=== PATIENT | female | born 1930 | race Caucasian/White ===

== ENCOUNTER 2017-06-11 03:52 | Inpatient (IN) | payer OTHER ==
[2017-06-11] MEDS ORDERED: SODIUM CHLORIDE 0.9% 1000 ML INFUS.BAG IV PRN (04:05)
[2017-06-11] MEDS ORDERED: hydrALAZINE HCL 20 MG/ML VIAL IVPUSH ONE (04:08)
[2017-06-11] MEDS ORDERED: MAGNESIUM SULF 50% (8.12 MEQ/2 ML-1 GM VIAL) IVPB ONE (04:11)
[2017-06-11 04:17] LABS: ALLENS TEST POSITIVE; ART PUNCT SITE RIGHT BRACHIAL; ARTERIAL BLOOD GAS BASE EXCESS -1.4 meq/l (-2-2); ARTERIAL BLOOD GAS HCO3 22.7 meq/L (22-26); ARTERIAL BLOOD GAS pH 7.39 (7.35-7.45); LPM/O2% 100; PT. ON O2? YES; VENT RATE 14
[2017-06-11 04:21] LABS: TYPE OF O2 BIPAP
[2017-06-11] MEDS ORDERED: MAGNESIUM SULF 50% (8.12 MEQ/2 ML-1 GM VIAL) ONE (04:22)
[2017-06-11 04:30] LABS: BASOPHIL 0.4 % (0-2.0); EOSINOPHIL 0.4 % (0-4.5); MCH 31.3 pg (25.7-33.7); MCHC 32.8 g/dl (32.0-36.0); MEAN CELL VOLUME 95.6 fl (80-96); MEAN PLT VOLUME 7.2 fl (7.5-11.1); NEUTROPHILS 90.2 % (42.8-82.8); PLATELET COUNT 287 K/MM3 (134-434); RDW 18.1 % (11.6-15.6); WHITE BLOOD COUNT 12.3 K/mm3 (4.0-10.0)
--- NOTE | 2017-06-11 04:39 | PDOC ---
History of Present Illness - General Chief Complaint: Respiratory Distress Stated Complaint: DIFFICULTY BREATHING Time Seen by Provider: 06/11/17 03:54 - History of Present Illness Initial Comments: 06/11/17 04:24 CHIEF COMPLAINT: shortness of breath HISTORY OF PRESENT ILLNESS: 87 yo F with hx of HTN, HLD, COPD, Alzheimer's, hypokalemia, GERD, C. Diff, and depression BIBEMS to ED with shortness of breath. Patient is unable to give a complete history and states "I don't know what happened" but does report being short of breath and denies any pain to chest or elsewhere. Per EMS patient had acute onset shortness of breath and O2 sat was 79% on EMS arrival and increased to 91% on bipap. Per EMS patient's BP was also elevated to 190s/100s on arrival. Patient was given 1 tab SL nitro in the field. PAST MEDICAL HISTORY: as per HPI FAMILY HISTORY: Denies SOCIAL HISTORY: Lives at [facility]. SURGICAL HISTORY: Denies ALLERGIES: No known drug allergies REVIEW OF SYSTEMS General/Constitutional: Denies fever or chills. Denies weakness, weight change. HEENT: Denies change in vision. Denies ear pain or discharge. Denies sore throat. Cardiovascular: Denies chest pain or shortness of breath. Respiratory: Shortness of breath. Gastrointestinal: Denies nausea, vomiting, diarrhea or constipation. Denies rectal bleeding. Genitourinary: Denies dysuria, frequency, or change in urination. Musculoskeletal: Denies joint or muscle swelling or pain. Denies neck or back pain. Skin and breasts: Denies rash or easy bruising. Neurologic: Denies headache, vertigo, loss of consciousness, or loss of sensation. PHYSICAL EXAM General Appearance: Confused, on CPAP for resp distress. HEENT: EOMI, PERRLA, normal ENT inspection, normal voice, TMs normal, pharynx normal. No conjunctival pallor. No photophobia, scleral icterus. Neck: Supple. Trachea midline. No tenderness, rigidity, carotid bruit, stridor , lymphadenopathy, or thyromegaly. Respiratory/Chest: Diffuse rhonchi bilaterally. Lungs CTAB. No shortness of breath, chest tenderness, respiratory distress, accessory muscle use. No crackles, rales, rhonchi, stridor, wheezing, dullness Cardiovascular: RRR. S1, S2. No JVD, murmur, bradycardia, tachycardia. Vascular Pulses: Dorsalis-Pedis (R): 2+, Dorsalis-Pedis (L): 2+ Gastrointestinal/Abdominal: Normal bowel sounds. Abdomen soft, non-distended. No tenderness or rebound tenderness. No organomegaly, pulsatile mass, guarding , hernia, hepatomegaly, splenomegaly. Lymphatic: No adenopathy, tenderness. Musculoskeletal/Extremities: Normal inspection. FROM of all extremities, normal capillary refill. Pelvis Stable. No CVA tenderness. No tenderness to extremities, pedal edema, swelling, erythema or deformity. Integumentary: Appropriate color, dry, warm. 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 Fully oriented, alert. Appropriate mood/affect. Motor strength 5/5. No appreciable EOM palsy, facial droop or sensory deficit. 06/11/17 06:50 Past History - Past Medical History Allergies/Adverse Reactions: Allergies Allergy/AdvReac Type Severity Reaction Status Date / Time No Known Allergies Allergy Verified 06/11/17 03:53 Home Medications: Ambulatory Orders Acetaminophen [Tylenol .Extra-Strength -] 500 mg PO ASDIR 06/11/17 Acetaminophen [Tylenol .Regular Strength -] 325 mg PO Q4H PRN 06/11/17 Atorvastatin Ca [Lipitor] 40 mg PO HS 06/11/17 Cyanocobalamin [Vitamin B12 -] 1,000 mcg PO DAILY 06/11/17 Donepezil HCl [Aricept -] 10 mg PO DAILY 06/11/17 Hydralazine HCl [Apresoline -] 25 mg PO BID 06/11/17 Lisinopril 10 mg PO DAILY 06/11/17 Metoprolol Succinate [Toprol Xl] 50 mg PO DAILY 06/11/17 [place]-3S/Dha/Epa/Fish Oil [[place]-3 Fish Oil 1,000 mg Sfgl] 1 each PO BID Risperidone [Risperdal -] 0.5 mg PO HS 06/11/17 Sertraline HCl [Zoloft -] 25 mg PO DAILY 06/11/17 Acetaminophen [Tylenol .Regular Strength -] 650 mg PO Q4H PRN #0 tablet Collagenase Clostridium Hist. [Santyl -] 1 applic TP DAILY tube 06/16/17 Furosemide [Lasix -] 40 mg PO DAILY tablet 06/16/17 Mirtazapine [Remeron -] 15 mg PO HS tablet 06/16/17 Potassium Chloride [K-Dur -] 30 meq PO DAILY tab 06/16/17 Potassium Chloride [K-Dur -] 30 meq PO DAILY tab 06/16/17 - Psycho/Social/Smoking Cessation Hx Suicidal Ideation: No Smoking History: Unknown if ever smoked Information on smoking cessation initiated: No Hx Alcohol Use: No Drug/Substance Use Hx: No *Physical Exam - Vital Signs Last Vital Signs Temp Pulse Resp BP Pulse Ox 99.0 F 71 16 194/99 99 06/11/17 04:03 06/11/17 03:53 06/11/17 03:53 06/11/17 03:53 06/11/17 04:22 Heart Score/ECG Review - History History: Moderately suspicious - Electrocardiogram EKG: Non specific repolarization disturbance - Age Age: >/= 65 - Risk Factors Risk Factors Heart Score: Yes Hx Hypercholesterolemia, Yes Hx Hypertension Based on the list above the patient has:: 1-2 risk factors - Troponin Troponin: 1-3x normal limit - Score Heart Score - Total: 6 ED Treatment Course - LABORATORY CBC & Chemistry Diagram: 06/16/17 15:45 06/16/17 15:45 - ADDITIONAL ORDERS Additional order review: Laboratory Results 06/11/17 04:00 Puncture Site Right brachial ABG pH 7.39 ABG pCO2 at Pt Temp 38.2 ABG pO2 at Pt Temp 233.0 H* ABG HCO3 22.7 ABG O2 Sat (Measured) 98.0 ABG O2 Content 14.9 L ABG Base Excess -1.4 Bubba Test Positive O2 Delivery Device Bipap Oxygen Flow Rate 100 Vent Rate 14 PEEP 0.0 Pressure Support Vent 10/06 - RADIOLOGY Radiology Studies Ordered: Category Date Time Status CHEST X-RAY PORTABLE* [RAD] Stat Radiology 06/11/17 04:03 Taken Medical Decision Making - Medical Decision Making 06/11/17 05:13 87 yo F with hx of HTN, HLD, COPD, Alzheimer's, hypokalemia, GERD, C. Diff, and depression BIBEMS to ED with shortness of breath. -CBC, CMP, PT/INR, cardiac profile, VBG, lactic acid -UA, Ucx -CXR, EKG CXR: Impression: Prominent indistinct perihilar vasculature with prominent interstitial markings noted bilaterally. Consider CHF/central venous congestion. THIS Read by: Nahum Laguerre M.D. 06/11/17 07:13 Case discussed in detail with oncoming emergency provider including history, physical exam and ancillary studies. In brief, this patient is being seen in the ED for a chief complaint of: I have completed the initial assessment interview note and have ordered the following labs: CBC, CMP, PT/INR, cardiac profile, VBG, lactic acid, BNP Pending results: UA, Ucx, BNP Please call the PCP: shaneka Plan for disposition as follows: admit Oncoming NPA Jeff has assumed care for the patient and will complete the evaluation and treatment. *DC/Admit/Observation/Transfer Diagnosis at time of Disposition: Sepsis, Elevated troponin, Hypoxia - Referrals
[2017-06-11 04:43] LABS: INR 1.12 (0.82-1.09); PROTHROMBIN TIME (PATIENT) 12.4 SEC (9.98-11.88)
--- NOTE | 2017-06-11 04:44 | PDOC ---
*Physical Exam - Vital Signs Last Vital Signs Temp Pulse Resp BP Pulse Ox 99.0 F 71 16 194/99 99 06/11/17 04:03 06/11/17 03:53 06/11/17 03:53 06/11/17 03:53 06/11/17 04:22 ED Treatment Course - LABORATORY CBC & Chemistry Diagram: 06/11/17 04:05 06/11/17 11:00 - ADDITIONAL ORDERS Additional order review: Laboratory Results 06/11/17 04:00 Puncture Site Right brachial ABG pH 7.39 ABG pCO2 at Pt Temp 38.2 ABG pO2 at Pt Temp 233.0 H* ABG HCO3 22.7 ABG O2 Sat (Measured) 98.0 ABG O2 Content 14.9 L ABG Base Excess -1.4 Bubba Test Positive O2 Delivery Device Bipap Oxygen Flow Rate 100 Vent Rate 14 PEEP 0.0 Pressure Support Vent 12/06/11/17 04:05 RBC 3.40 L MCV 95.6 MCHC 32.8 RDW 18.1 H MPV 7.2 L Neutrophils % 90.2 H Lymphocytes % 2.8 L Monocytes % 6.2 Eosinophils % 0.4 Basophils % 0.4 - Medications Given in the ED: ED Medications Discontinued Medications Generic Name Dose Route Start Last Admin Trade Name Freq PRN Reason Stop Dose Admin Magnesium Sulfate 1 gm 06/11/17 04:11 06/11/17 04:29 Magnesium Sulfate IVPB 06/11/17 04:12 1 gm ONCE ONE Administration Medical Decision Making - Medical Decision Making 06/11/17 04:44 agree with care from VERONICA Samuel *DC/Admit/Observation/Transfer Diagnosis at time of Disposition: Sepsis, Elevated troponin, Hypoxia
[2017-06-11 05:21] LABS: ALBUMIN 2.8 g/dl (3.4-5.0); ANION GAP 12 (8-16); BILIRUBIN,TOTAL 0.6 mg/dL (0.2-1.0); CALCIUM 8.3 mg/dL (8.5-10.1); CO2 23 mmol/L (21-32); CREATININE 0.6 mg/dL (0.55-1.02); GLUCOSE,RANDOM 166 mg/dL (74-106); MAGNESIUM 2.1 mg/dL (1.8-2.4); SGOT/AST 25 U/L (15-37); SGPT/ALT 21 U/L (12-78); TOT PROT 5.9 g/dl (6.4-8.2)
[2017-06-11 05:24] LABS: ALK PHOS 107 U/L (45-117); CPK 55 IU/L (26-192); TROPONIN I 0.14 ng/ml (0.00-0.05)
[2017-06-11 06:03] LABS: VENOUS BLOOD GAS HCO3 -0.9 meq/L (19-25); VENOUS PH 7.41 (7.32-7.42)
[2017-06-11] MEDS ORDERED: PIPERACILLIN/TAZOB 4.5 GM/100 ML PRE-DOCKED IVPB ONE (07:23)
[2017-06-11] MEDS ORDERED: VANCOMYCIN 1 GRAM (PRE-DOCKED) 1,000 MG/250 ML BAG IVPB ONE (07:23)
[2017-06-11] MEDS ORDERED: SODIUM CHLORIDE 500 ML IV STA (07:25)
[2017-06-11 07:31] LABS: URINE APPEARANCE TURBID; URINE BILIRUBIN NEGATIVE (NEGATIVE); URINE BLOOD NEGATIVE (NEGATIVE); URINE COLOR YELLOW; URINE GLUCOSE (UA) NEGATIVE (NEGATIVE); URINE KETONE NEGATIVE (NEGATIVE); URINE NITRITE POSITIVE (NEGATIVE); URINE UROBILINOGEN NEGATIVE mg/dL (0.2-1.0)
--- NOTE | 2017-06-11 07:57 | PDOC ---
*Physical Exam - Vital Signs Last Vital Signs Temp Pulse Resp BP Pulse Ox 99.0 F 82 14 158/91 99 06/11/17 04:03 06/11/17 05:41 06/11/17 05:41 06/11/17 05:41 06/11/17 05:41 ED Treatment Course - LABORATORY CBC & Chemistry Diagram: 06/11/17 04:05 06/11/17 04:05 - ADDITIONAL ORDERS Additional order review: Laboratory Results 06/11/17 06/11/17 06/11/17 06:00 05:50 05:50 Puncture Site ABG pH ABG pCO2 at Pt Temp ABG pO2 at Pt Temp ABG HCO3 ABG O2 Sat (Measured) ABG O2 Content ABG Base Excess Bubba Test VBG pH 7.41 POC VBG pCO2 37.2 L POC VBG pO2 62.2 H Mixed VBG HCO3 -0.9 L* O2 Delivery Device Oxygen Flow Rate Vent Rate PEEP Pressure Support Vent Sodium Potassium Chloride Carbon Dioxide Anion Gap BUN Creatinine Creat Clearance w eGFR Random Glucose Lactic Acid 2.2 H* Calcium Magnesium Total Bilirubin AST ALT Alkaline Phosphatase Creatine Kinase Troponin I Total Protein Albumin Blood Type O POSITIVE Antibody Screen Negative 06/11/17 06/11/17 04:05 04:00 Puncture Site Right brachial ABG pH 7.39 ABG pCO2 at Pt Temp 38.2 ABG pO2 at Pt Temp 233.0 H* ABG HCO3 22.7 ABG O2 Sat (Measured) 98.0 ABG O2 Content 14.9 L ABG Base Excess -1.4 Bubba Test Positive VBG pH POC VBG pCO2 POC VBG pO2 Mixed VBG HCO3 O2 Delivery Device Bipap Oxygen Flow Rate 100 Vent Rate 14 PEEP 0.0 Pressure Support Vent 12/4 Sodium 144 Potassium 3.7 Chloride 109 H Carbon Dioxide 23 Anion Gap 12 BUN 30 H Creatinine 0.6 Creat Clearance w eGFR > 60 Random Glucose 166 H Lactic Acid Calcium 8.3 L Magnesium 2.1 Total Bilirubin 0.6 AST 25 ALT 21 Alkaline Phosphatase 107 Creatine Kinase 55 Troponin I 0.14 H Total Protein 5.9 L Albumin 2.8 L Blood Type Antibody Screen 06/11/17 04:05 RBC 3.40 L MCV 95.6 MCHC 32.8 RDW 18.1 H MPV 7.2 L Neutrophils % 90.2 H Lymphocytes % 2.8 L Monocytes % 6.2 Eosinophils % 0.4 Basophils % 0.4 - Medications Given in the ED: ED Medications Discontinued Medications Generic Name Dose Route Start Last Admin Trade Name Zulema PRN Reason Stop Dose Admin Magnesium Sulfate 1 gm 06/11/17 04:11 06/11/17 04:29 Magnesium Sulfate IVPB 06/11/17 04:12 1 gm ONCE ONE Administration Medical Decision Making - Medical Decision Making 06/11/17 07:18 Patient received in sign out from VERONICA Samuel. Patient arrived hypoxic and was placed on a C Pap and currently satting at 99%. Patient had noted elevated lactic acid, troponin and white count. Chest x-ray shows CHF and questionable infiltrate. Patient was recently on vancomycin for C. difficile. Patient is a resident at [facility]. Patient will be treated for hospital-acquired pneumonia. Patient also in for repeat lactic acid, 500 mL of IV fluid and repeat troponin and EKG. Case discussed with Dr. Ferguson and patient will be admitted to telemetry inpatient. Patient incidentally also with an elevated PTT with normal INR and normal platelet count. Dr. Ferguson made aware. 06/11/17 08:03 Laboratory Tests 06/11/17 06:18 B-Natriuretic Peptide 2859.18 H UA still pending 06/11/17 08:03 *DC/Admit/Observation/Transfer Diagnosis at time of Disposition: Sepsis, Elevated troponin, Hypoxia - Discharge Dispostion Admit: Yes - Referrals Referrals: Nazanin Ferguson MD [Primary Care Provider] - - Patient Instructions - Post Discharge Activity
[2017-06-11] MEDS ORDERED: VANCOMYCIN 1 GRAM (PRE-DOCKED) 250 ML IVPB ONE (07:59)
[2017-06-11] MEDS ORDERED: PIPERACILLIN/TAZOB 4.5 GM 100 ML IVPB ONE (08:01)
[2017-06-11 08:08] LABS: URINE LEUK ESTERASE 2+ (NEGATIVE); URINE PROTEIN 3+ (NEGATIVE)
[2017-06-11 08:22] LABS: URINE BACTERIA MANY /hpf (NONE SEEN); URINE RBC 6 /hpf (0-3); URINE WBC 329 /hpf (3-5)
[2017-06-11] MEDS ORDERED: PIPERACILLIN/TAZOB 3.375 GM 50 ML IVPB ONE (08:39)
--- NOTE | 2017-06-11 11:06 | HP ---
Admitting History and Physical - Admission History of Present Illness: 87 yo F with hx of HTN, HLD, COPD, Alzheimer's, hypokalemia, GERD, C. Diff, and depression BIBEMS to ED with shortness of breath. Patient is unable to give a complete history and states "I don't know what happened" but does report being short of breath and denies any pain to chest or elsewhere. Per EMS patient had acute onset shortness of breath and O2 sat was 79% on EMS arrival and increased to 91% on bipap. Per EMS patient's BP was also elevated to 190s/100s on arrival. Patient was given 1 tab SL nitro in the field. 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 Cardiovascular: Yes: Hyperlipdemia Pulmonary: Yes: COPD Gastrointestinal: Yes: GERD Infectious Disease: Yes: C-Diff - Smoking History Smoking history: Unknown if ever smoked - Alcohol/Substance Use Hx Alcohol Use: No Home Medications - Allergies Allergies/Adverse Reactions: Allergies Allergy/AdvReac Type Severity Reaction Status Date / Time No Known Allergies Allergy Verified 06/11/17 03:53 - Home Medications Home Medications: Ambulatory Orders Acetaminophen [Tylenol -] 325 mg PO Q4H PRN 06/11/17 Acetaminophen [Tylenol -] 500 mg PO ASDIR 06/11/17 Atorvastatin Ca [Lipitor] 40 mg PO HS 06/11/17 Cyanocobalamin [Vitamin B12 -] 1,000 mcg PO DAILY 06/11/17 Donepezil HCl [Aricept -] 10 mg PO DAILY 06/11/17 Hydralazine HCl [Apresoline -] 25 mg PO BID 06/11/17 Lisinopril 10 mg PO DAILY 06/11/17 Metoprolol Succinate [Toprol Xl] 50 mg PO DAILY 06/11/17 [place]-3S/Dha/Epa/Fish Oil [[place]-3 Fish Oil 1,000 mg Sfgl] 1 each PO BID Risperidone [Risperdal -] 0.5 mg PO HS 06/11/17 Sertraline HCl [Zoloft -] 25 mg PO DAILY 06/11/17 Review of Systems - Review of Systems Respiratory: reports: SOB, Other (HYPOXIA) Physical Examination Vital Signs: Vital Signs Temperature 99.0 F 06/11/17 04:03 Pulse Rate 72 06/11/17 09:36 Respiratory Rate 20 06/11/17 09:36 Blood Pressure 175/76 06/11/17 09:36 O2 Sat by Pulse Oximetry (%) 100 06/11/17 09:36 Cardiovascular: Yes: Murmur, S1, S2 Respiratory: Yes: Diminished, On Nasal O2 Gastrointestinal: Yes: Normal Bowel Sounds, Soft Edema: No Neurological: Yes: Alert, Confusion Imaging - Results X-ray: Report Reviewed (CHF) Problem List - Problems (1) Elevated troponin Assessment/Plan: FOLLOW TRENDS CARDIO ECHO Code(s): R74.8 - ABNORMAL LEVELS OF OTHER SERUM ENZYMES (2) Hypoxia Assessment/Plan: MAYBE DUE TO CHF R/O PNA CXR PULM Code(s): R09.02 - HYPOXEMIA (3) CHF (congestive heart failure) Assessment/Plan: IV LASIX ECHO CARDIO Code(s): I50.9 - HEART FAILURE, UNSPECIFIED (4) Leukocytosis Assessment/Plan: CULTURES ID ABX Code(s): D72.829 - ELEVATED WHITE BLOOD CELL COUNT, UNSPECIFIED
[2017-06-11 11:24] LABS: ARTERIAL BLD GAS O2 SATURATION 97.9 % (90-98.9); ARTERIAL BLOOD GAS BASE EXCESS -0.2 meq/l (-2-2); ARTERIAL BLOOD GAS HCO3 23.2 meq/L (22-26); ARTERIAL BLOOD GAS pH 7.44 (7.35-7.45)
[2017-06-11 11:25] LABS: ALLENS TEST POSITIVE; ART PUNCT SITE RIGHT BRACHIAL; PT. ON O2? YES
[2017-06-11 11:26] LABS: LPM/O2% 70%; MECH. VENT. BIPAP; VENT RATE 14
[2017-06-11 11:29] LABS: ANION GAP 8 (8-16); CALCIUM 7.7 mg/dL (8.5-10.1); CO2 26 mmol/L (21-32); CREATININE 0.5 mg/dL (0.55-1.02); GLUCOSE,RANDOM 129 mg/dL (74-106); MAGNESIUM 2.3 mg/dL (1.8-2.4)
[2017-06-11 11:43] LABS: CPK 48 IU/L (26-192)
--- NOTE | 2017-06-11 11:50 | PN ---
Progress Note (short form) - Note Progress Note: PULMONARY CONSULTATION DICTATED 06/11/17 IMP ACUTE HYOXEMIC RESPIRATORY FAILURE DECOMPENSATED CHF HYPERTENSIVE URGENCY +TROPONINS DEMENTIA GERD ? H/O COPD PLAN LASIX SUPPLEMENTAL O2 NIPPV IF DEVELOPES RESPIRATORY DISTRESS MONITOR BP CE ECHO F/U CHEST X-RAY STRICT I+OS DR GARCIA Problem List - Problems (1) CHF (congestive heart failure) Code(s): I50.9 - HEART FAILURE, UNSPECIFIED (2) Elevated troponin Code(s): R74.8 - ABNORMAL LEVELS OF OTHER SERUM ENZYMES (3) Hypoxia Code(s): R09.02 - HYPOXEMIA (4) Acute hypoxemic respiratory failure Code(s): J96.01 - ACUTE RESPIRATORY FAILURE WITH HYPOXIA (5) Hypertensive urgency Code(s): I16.0 - HYPERTENSIVE URGENCY (6) Dementia Code(s): F03.90 - UNSPECIFIED DEMENTIA WITHOUT BEHAVIORAL DISTURBANCE
[2017-06-11] MEDS: FUROSEMIDE 40 MG/4 ML INJECTABLE VIAL IVPB SCH (11:53)
[2017-06-11] MEDS: SERTRALINE HCL 25 MG TABLET (FP) PO SCH (11:54)
[2017-06-11] MEDS: CYANOCOBALAMIN 1,000 MCG TABLET (FP) PO SCH (11:54)
[2017-06-11] MEDS: ACETAMINOPHEN 325 MG TABLET (FP) PO PRN (11:54)
[2017-06-11] MEDS: hydrALAZINE HCL 25 MG TABLET (FP) PO SCH ×2 (11:54→21:36)
[2017-06-11] MEDS: METOPROLOL SUCCINATE 50 MG TAB.SR.24H (FP) PO SCH (12:00)
--- NOTE | 2017-06-11 13:11 | CONS ---
DATE OF CONSULTATION: 06/11/2017 REFERRING PHYSICIAN: Nazanin Ferguson MD HISTORY OF PRESENT ILLNESS: The patient is an 87-year-old white female with a past medical history of Alzheimer's dementia, GERD, C. difficile, questionable COPD, hyperlipidemia, hypertension, depression, a resident of group home, transferred to [facility] with acute onset of shortness of breath. Patient apparently woke up from sleep acutely short of breath. At the time EMS was called, they noted her saturations were 79% on room air. She was placed on supplemental O2. In the ER, she was noted to be hypertensive. Blood pressure was 190s/100s. She was given nitroglycerin sublingual as well as Lasix and placed on BiPAP with good clinical response and transferred to the medical floor for further management. Patient denied any chest pain, nausea, vomiting, diaphoresis. She denied any hemoptysis. There is no history of recent fevers. Of note, the labs she is significant for, she was noted to have elevated troponin level 0.14. Lactate was elevated initially at 2.2, currently 1.3. SOCIAL HISTORY: Patient denies history of smoking, but apparently according to the family, she used to be a social smoker. There is no history of occupational exposures. There is no history of DVT or PE in the past. PAST MEDICAL HISTORY: Again includes hyperlipidemia, hypertension, questionable COPD, GERD, Alzheimer's dementia. CURRENT MEDICATIONS: Include Tylenol, Zoloft, Risperdal, Toprol, Apresoline, Lipitor, Lasix, Aricept, and vitamin B12. REVIEW OF SYSTEMS: Positive shortness of breath. No chest pain, no palpitations, no abdominal pain, no lower extremity edema. PHYSICAL EXAMINATION: General: The patient is an elderly white female, thin, well-developed, awake, alert, mildly confused, but in no acute distress, on BiPAP. Vital signs: Blood pressure 176/98, respiratory rate 16, O2 saturation is 100% on BiPAP, and she is afebrile. HEENT: Head is normocephalic atraumatic. Neck: Supple. Heart: Regular, S1, S2. Chest: Bilateral crackles. Abdomen: Soft. Bowel sounds positive. Extremities: No cyanosis or edema. LABORATORIES: BUN 27, creatinine 0.5. The day before, lactate was 2.2 initially, now, it is 1.3. BNP is elevated to 22,859. Troponin is 0.14. WBC is 12.3, hemoglobin 10.7, hematocrit 32.5, with a platelet count of 287,000. Blood gas initially BiPAP 100%, pH of 7.39 , pCO2 of 38, pO2 of 233, bicarbonate of 22, and saturation of 98; that was on BiPAP, IPAP of 12 and EPAP of 4 at a rate of 14, 100% oxygen. Repeat reveals pH of 7.44 , pCO2 of 35, pO2 of 204, bicarbonate of 23, and saturation of 97.9; that was on BiPAP, IPAP of 12 and EPAP of 4 and 70% oxygen. Chest x-ray shows there is cardiomegaly, pulmonary vascular congestion bilaterally. IMPRESSION: 1. Acute hypoxemic respiratory failure secondary to acute decompensated congestive heart failure. 2. Hypertension, hypertensive urgency. 3. History of gastroesophageal reflux disease. 4. Questionable chronic obstructive pulmonary disease. 5. History of chronic obstructive pulmonary disease. 6. Alzheimer's dementia. 7. Positive troponins. PLAN: Continue IV Lasix, monitor blood pressure, supplemental O2, trend cardiac enzymes, obtain followup chest x-rays, also change nasal oxygen and noninvasive positive pressure ventilation if patient develops increasing respiratory distress, strict intakes/outputs, also echocardiogram. RONNELL GARCIA M.D. [id number]
[2017-06-11 13:20] LABS: TROPONIN I 0.58 ng/ml (0.00-0.05)
--- NOTE | 2017-06-11 14:18 | PN ---
Progress Note (short form) - Note Progress Note: ID consult dictated imp/reccd acute hypoxemic resp failure- now on NC chf htn positive troponins doubt pneumonia recent cdiff lasting several months, normal stools for last 2 weeks no need for antibiotics at this time Problem List - Problems (1) Acute hypoxemic respiratory failure Code(s): J96.01 - ACUTE RESPIRATORY FAILURE WITH HYPOXIA (2) CHF (congestive heart failure) Code(s): I50.9 - HEART FAILURE, UNSPECIFIED (3) Hypertensive urgency Code(s): I16.0 - HYPERTENSIVE URGENCY (4) Elevated troponin Code(s): R74.8 - ABNORMAL LEVELS OF OTHER SERUM ENZYMES
--- NOTE | 2017-06-11 14:40 | EKG ---
Test Reason : Blood Pressure : / mmHG Vent. Rate : 087 BPM Atrial Rate : 087 BPM P-R Int : 162 ms QRS Dur : 084 ms QT Int : 424 ms P-R-T Axes : 032 002 093 degrees QTc Int : 510 ms SINUS RHYTHM WITH PREMATURE SUPRAVENTRICULAR COMPLEXES POSSIBLE LEFT ATRIAL ENLARGEMENT NONSPECIFIC ST AND T WAVE ABNORMALITY PROLONGED QT ABNORMAL ECG NO PREVIOUS ECGS AVAILABLE Confirmed by MANE BALTAZAR MD ([id number]) on 06/11/2017 2:40:01 PM Referred By: Confirmed By:MANE BALTAZAR MD
--- NOTE | 2017-06-11 15:59 | CON.CARD ---
Consult Consult Specialty:: Cardiology Reason for Consultation:: DELGADO - History of Present Illness Chief Complaint: DELGADO History of Present Illness: This is an 87 year old female with a PMH of HTN, HLD, COPD, Alzheimer's disease , GERD and C. Diff. She presents on 06/11/17 with DELGADO and hypoxia. O2 sat was 79% on room air with EMS and then increased to 91% on Bipap. Her BP was noted to be elevated. CXR showed interstial lung disease with CHF. WBC 12.3. Troponin levels are positive 0.58 -> 0.14. BNP 2859. 06/11/17 Presently resting comfortably. 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 Cardio/Vascular: Yes: Hyperlipdemia Pulmonary: Yes: COPD Gastrointestinal: Yes: GERD Infectious Disease: Yes: C-Diff - Alcohol/Substance Use Hx Alcohol Use: No - Smoking History Smoking history: Unknown if ever smoked Home Medications - Allergies Allergies/Adverse Reactions: Allergies Allergy/AdvReac Type Severity Reaction Status Date / Time No Known Allergies Allergy Verified 06/11/17 03:53 - Home Medications Home Medications: Ambulatory Orders Acetaminophen [Tylenol -] 325 mg PO Q4H PRN 06/11/17 Acetaminophen [Tylenol -] 500 mg PO ASDIR 06/11/17 Atorvastatin Ca [Lipitor] 40 mg PO HS 06/11/17 Cyanocobalamin [Vitamin B12 -] 1,000 mcg PO DAILY 06/11/17 Donepezil HCl [Aricept -] 10 mg PO DAILY 06/11/17 Hydralazine HCl [Apresoline -] 25 mg PO BID 06/11/17 Lisinopril 10 mg PO DAILY 06/11/17 Metoprolol Succinate [Toprol Xl] 50 mg PO DAILY 06/11/17 [place]-3S/Dha/Epa/Fish Oil [[place]-3 Fish Oil 1,000 mg Sfgl] 1 each PO BID Risperidone [Risperdal -] 0.5 mg PO HS 06/11/17 Sertraline HCl [Zoloft -] 25 mg PO DAILY 06/11/17 Review of Systems Unable to obtain ROS, reason: As per HPI Vital Signs: Vital Signs Temperature 98.8 F 06/11/17 13:59 Pulse Rate 60 06/11/17 14:41 Respiratory Rate 18 06/11/17 13:59 Blood Pressure 143/60 06/11/17 13:59 O2 Sat by Pulse Oximetry (%) 95 06/11/17 14:41 Constitutional: Yes: No Distress HENT: Yes: WNL Neck: Yes: WNL Respiratory: Yes: Other (Basilar crackles) Gastrointestinal: Yes: Soft Cardiovascular: Yes: Regular Rate and Rhythm Heart Sounds: Yes: S1, S2 (No MRHG) Extremities: Yes: WNL Edema: LLE: Trace, RLE: Trace Neurological: Yes: Other (Non focal) - Other Data Labs, Other Data: CBC, BMP 06/11/17 11:00 INR, PTT INR 1.12 (0.82-1.09) 06/11/17 04:05 Troponin, BNP 06/11/17 11:00 Troponin I 0.58 H Troponin, BNP 06/11/17 11:00 Troponin I 0.58 H Assessment/Plan 87 year old female with a PMH of HTN, HLD, COPD, Alzheimer's disease, GERD and C. Diff. She presents on 06/11/17 with DELGADO and hypoxia. O2 sat was 79% on room air with EMS and then increased to 91% on Bipap. Her BP was noted to be elevated. CXR showed interstial lung disease with CHF. WBC 12.3. Troponin levels are positive 0.58 -> 0.14. BNP 2859. EKG NSR with a prolonged QT intervals CHF Obtain an echocardiogram to assess LV function Given elevated BNP and CXR finding, would given Lasix 40 mg IVSS daily Daily lytes Would replete K+ to ~ 4.0 Continue Lisinopril/Metoprolol/Hydralazine QTc is 510 mg, would consider DC'ing Risperidone Will follow with you.
--- NOTE | 2017-06-11 18:46 | CONS ---
DATE OF CONSULTATION: DATE OF DICTATION: 06/11/2017 REQUESTING PHYSICIAN: Nazanin Ferguson M.D. CONSULTING PHYSICIAN: Asha Steele M.D. HISTORY: History is from the patient and family. This is an 87-year-old woman with mild dementia, she had been living alone until about 6 months ago. She had been in assisted living. She is now at the [facility]. She is admitted with acute onset of shortness of breath without any chest pain or fevers or chills. Her daughter had seen her yesterday; she had no fevers, chills, or cough. The patient as well denies these symptoms. She developed acute shortness of breath and acute hypoxia with the room air O2 saturation at 79% and her blood pressure was 190/100 at that time. She was placed on BiPAP and transferred to the emergency room. Since that time, her oxygenation has improved, and currently she is on nasal cannula. PAST MEDICAL HISTORY: Notable for hypertension, hyperlipidemia, COPD, Alzheimer disease. She has a history of shingles 5 years ago, hypokalemia, GERD. She has a history of chronic UTIs and about 6 months ago developed C. difficile, which waxed and waned, and daughter reports that her diarrhea finally stopped about 2 weeks ago. Her surgical history is notable for cholecystectomy. She has had a lumpectomy. 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 She is a former smoker, stopped smoking many years ago. No history of any substance use. ALLERGIES: She has no known drug allergies. MEDICATION: Her medications at the alf include atorvastatin, vitamin B12, Aricept, Apresoline, lisinopril, metoprolol, omega 3 fish oil, Risperdal and sertraline. FAMILY HISTORY: Noncontributory. SOCIAL HISTORY: She lived in assisted living until about 6 to 9 months ago. There has been no history of any fever or cough. She has had no chest pain, palpitations, abdominal pain. PHYSICAL EXAMINATION: General: She is an elderly woman, alert. Upset she is in the hospital. Vital signs: Temperature 98.8. She has been afebrile. Pulse 73. Blood pressure 143/70. Respiratory rate 18, saturating 95% on 3 L. HEENT: Normocephalic. Eyes are anicteric. Neck: Supple. Lungs: Bibasilar crackles. Heart: Regular rate and rhythm. Back: She has a small lipoma on her back. Abdomen: Soft, nontender. Extremities: 1+ to trace pretibial edema. LABORATORY: White count is 12.3, hemoglobin 10.7, platelets 287. Her BUN and creatinine on admission were 30 and 0.6. Lactic acid was 2.2, on repeat 1.3. Troponins were 0.14 and now 0.58. Urinalysis has 2+ leukocyte esterase. Cultures are pending. Chest x-ray on admission showed congestive changes that were repeated 2 hours later with improvement. IMPRESSION: In summary, this is an 87-year-old woman with acute hypoxemic respiratory failure, congestive heart failure, hypertensive urgency, positive troponins. I doubt she has pneumonia. She has a recent Clostridium difficile lasting several months. I would not treat her with antibiotics at this time. Would follow up her cultures. I do not think she has a urinary tract infection, as she has no complaints, so even if the urine culture came back, would assume this is asymptomatic bacteruria and refrain from treating her. Further management per pulmonary and cardiology. ASHA STEELE M.D. [id number]
[2017-06-11] MEDS ORDERED: PT OWN MED DRAWER 7, Y5N ONE (20:53)
[2017-06-11] MEDS: ATORVASTATIN CA 40 MG TABLET (FP) PO SCH (21:33)
[2017-06-11] MEDS: DONEPEZIL HCL 10 MG TABLET (FP) PO SCH (21:36)
[2017-06-11] MEDS ORDERED: risperiDONE 0.5 MG TABLET (FP) PO SCH (22:00)
[2017-06-12 07:56] LABS: BASOPHIL 0.5 % (0-2.0); EOSINOPHIL 1.1 % (0-4.5); MCH 31.4 pg (25.7-33.7); MCHC 33.5 g/dl (32.0-36.0); MEAN CELL VOLUME 93.8 fl (80-96); MEAN PLT VOLUME 7.4 fl (7.5-11.1); NEUTROPHILS 81.7 % (42.8-82.8); PLATELET COUNT 258 K/MM3 (134-434); RDW 18.3 % (11.6-15.6)
--- NOTE | 2017-06-12 08:49 | PN ---
Progress Note, Physician History of Present Illness: feels better looks better - Current Medication List Current Medications: Active Medications Acetaminophen (Tylenol -) 650 mg PO Q4H PRN PRN Reason: FEVER OR PAIN Last Admin: 06/11/17 11:54 Dose: 650 mg Atorvastatin Calcium (Lipitor -) 40 mg PO HS [facility] Last Admin: 06/11/17 21:33 Dose: 40 mg Collagenase (Santyl -) 1 applic TP DAILY [facility] Cyanocobalamin (Vitamin B12 -) 1,000 mcg PO DAILY [facility] Last Admin: 06/11/17 11:54 Dose: 1,000 mcg Donepezil HCl (Aricept -) 10 mg PO HS [facility] Last Admin: 06/11/17 21:36 Dose: 10 mg Furosemide (Lasix Injection -) 40 mg IVPB DAILY [facility] Last Admin: 06/11/17 11:53 Dose: 40 mg Hydralazine HCl (Apresoline -) 25 mg PO BID [facility] Last Admin: 06/11/17 21:36 Dose: 25 mg Metoprolol Succinate (Toprol Xl -) 50 mg PO DAILY [facility] Last Admin: 06/11/17 12:00 Dose: 50 mg Risperidone (Risperdal -) 0.5 mg PO HS [facility] Last Admin: 06/11/17 21:36 Dose: 0.5 mg Sertraline HCl (Zoloft -) 25 mg PO DAILY [facility] Last Admin: 06/11/17 11:54 Dose: 25 mg Sodium Chloride (Normal Saline -) 250 ml IV Q20M PRN PRN Reason: MAP<65mm Hg OR SBP <90 - Objective Vital Signs: Vital Signs Temperature 99.5 F 06/12/17 06:32 Pulse Rate 100 H 06/12/17 06:32 Respiratory Rate 16 06/12/17 06:32 Blood Pressure 165/80 06/12/17 06:32 O2 Sat by Pulse Oximetry (%) 96 06/11/17 20:41 Cardiovascular: Yes: Regular Rate and Rhythm Respiratory: Yes: Regular, CTA Bilaterally Gastrointestinal: Yes: Normal Bowel Sounds, Soft Labs: CBC, BMP 06/12/17 06:05 06/12/17 06:05 INR, PTT INR 1.12 (0.82-1.09) 06/11/17 04:05 Problem List - Problems (1) Elevated troponin Assessment/Plan: FOLLOW TRENDS CARDIO NOTED ECHO Code(s): R74.8 - ABNORMAL LEVELS OF OTHER SERUM ENZYMES (2) Hypoxia Assessment/Plan: MAYBE DUE TO CHF R/O PNA CXR PULM Code(s): R09.02 - HYPOXEMIA (3) CHF (congestive heart failure) Assessment/Plan: IV LASIX ECHO CARDIO NOTED Code(s): I50.9 - HEART FAILURE, UNSPECIFIED (4) Leukocytosis Assessment/Plan: CULTURES ID ABX Code(s): D72.829 - ELEVATED WHITE BLOOD CELL COUNT, UNSPECIFIED
[2017-06-12 08:53] LABS: ALBUMIN 2.6 g/dl (3.4-5.0); ALK PHOS 81 U/L (45-117); ANION GAP 8 (8-16); BILIRUBIN,TOTAL 1.1 mg/dL (0.2-1.0); CALCIUM 8.4 mg/dL (8.5-10.1); CO2 26 mmol/L (21-32); CREATININE 0.4 mg/dL (0.55-1.02); GLUCOSE,RANDOM 90 mg/dL (74-106); SGOT/AST 14 U/L (15-37); SGPT/ALT 15 U/L (12-78); TOT PROT 5.5 g/dl (6.4-8.2)
[2017-06-12] MEDS: SERTRALINE HCL 25 MG TABLET (FP) PO SCH (09:29)
[2017-06-12] MEDS: hydrALAZINE HCL 25 MG TABLET (FP) PO SCH ×2 (09:29→22:13)
[2017-06-12] MEDS: FUROSEMIDE 40 MG/4 ML INJECTABLE VIAL IVPB SCH (09:29)
[2017-06-12] MEDS: METOPROLOL SUCCINATE 50 MG TAB.SR.24H (FP) PO SCH (09:29)
[2017-06-12] MEDS: CYANOCOBALAMIN 1,000 MCG TABLET (FP) PO SCH (09:29)
[2017-06-12] MEDS ORDERED: POTASSIUM CHLORIDE TABS 20 MEQ TABLET.ER (FP) PO ONE (09:30)
[2017-06-12 10:53] LABS: CPK 35 IU/L (26-192)
[2017-06-12 10:54] LABS: TROPONIN I 0.28 ng/ml (0.00-0.05)
--- NOTE | 2017-06-12 11:31 | PN ---
Progress Note, Physician History of Present Illness: PULMONARY ALERT,-RESP DISTRESS ON NASAL CANNULA. - Current Medication List Current Medications: Active Medications Acetaminophen (Tylenol -) 650 mg PO Q4H PRN PRN Reason: FEVER OR PAIN Last Admin: 06/11/17 11:54 Dose: 650 mg Atorvastatin Calcium (Lipitor -) 40 mg PO HS [facility] Last Admin: 06/11/17 21:33 Dose: 40 mg Collagenase (Santyl -) 1 applic TP DAILY [facility] Cyanocobalamin (Vitamin B12 -) 1,000 mcg PO DAILY [facility] Last Admin: 06/12/17 09:29 Dose: 1,000 mcg Donepezil HCl (Aricept -) 10 mg PO HS [facility] Last Admin: 06/11/17 21:36 Dose: 10 mg Furosemide (Lasix Injection -) 40 mg IVPB DAILY [facility] Last Admin: 06/12/17 09:29 Dose: 40 mg Hydralazine HCl (Apresoline -) 25 mg PO BID [facility] Last Admin: 06/12/17 09:29 Dose: 25 mg Metoprolol Succinate (Toprol Xl -) 50 mg PO DAILY [facility] Last Admin: 06/12/17 09:29 Dose: 50 mg Potassium Chloride (K-Dur -) 20 meq PO DAILY [facility] Risperidone (Risperdal -) 0.5 mg PO HS [facility] Last Admin: 06/11/17 21:36 Dose: 0.5 mg Sertraline HCl (Zoloft -) 25 mg PO DAILY [facility] Last Admin: 06/12/17 09:29 Dose: 25 mg Sodium Chloride (Normal Saline -) 250 ml IV Q20M PRN PRN Reason: MAP<65mm Hg OR SBP <90 - Objective Vital Signs: Vital Signs Temperature 99.5 F 06/12/17 06:32 Pulse Rate 100 H 06/12/17 06:32 Respiratory Rate 16 06/12/17 06:32 Blood Pressure 165/80 06/12/17 06:32 O2 Sat by Pulse Oximetry (%) 96 06/11/17 20:41 Constitutional: Yes: Calm, Thin Eyes: Yes: WNL HENT: Yes: WNL Neck: Yes: WNL Cardiovascular: Yes: Regular Rate and Rhythm, S1, S2 Respiratory: Yes: Rales (BIBASILAR CRACKLES) Gastrointestinal: Yes: Normal Bowel Sounds, Soft Extremities: Yes: WNL Edema: No Labs: CBC, BMP 06/12/17 06:05 06/12/17 06:05 INR, PTT INR 1.12 (0.82-1.09) 06/11/17 04:05 Problem List - Problems (1) CHF (congestive heart failure) Code(s): I50.9 - HEART FAILURE, UNSPECIFIED (2) Elevated troponin Code(s): R74.8 - ABNORMAL LEVELS OF OTHER SERUM ENZYMES (3) Hypoxia Code(s): R09.02 - HYPOXEMIA (4) Acute hypoxemic respiratory failure Code(s): J96.01 - ACUTE RESPIRATORY FAILURE WITH HYPOXIA (5) Hypertensive urgency Code(s): I16.0 - HYPERTENSIVE URGENCY (6) Dementia Code(s): F03.90 - UNSPECIFIED DEMENTIA WITHOUT BEHAVIORAL DISTURBANCE Assessment/Plan IMP ACUTE HYOXEMIC RESPIRATORY FAILURE IMPROVED DECOMPENSATED CHF IMPROVING HYPERTENSIVE URGENCY IMPROVED PULMONARY HYPERTENSION +TROPONINS DEMENTIA GERD ? H/O COPD PLAN LASIX SUPPLEMENTAL O2 NIPPV IF DEVELOPES RESPIRATORY DISTRESS MONITOR BP F/U CHEST X-RAY STRICT I+OS DR GARCIA Problem List - Problems (1) CHF (congestive heart failure) Code(s): I50.9 - HEART FAILURE, UNSPECIFIED (2) Elevated troponin Code(s): R74.8 - ABNORMAL LEVELS OF OTHER SERUM ENZYMES (3) Hypoxia Code(s): R09.02 - HYPOXEMIA (4) Acute hypoxemic respiratory failure Code(s): J96.01 - ACUTE RESPIRATORY FAILURE WITH HYPOXIA (5) Hypertensive urgency Code(s): I16.0 - HYPERTENSIVE URGENCY (6) Dementia Code(s): F03.90 - UNSPECIFIED DEMENTIA WITHOUT BEHAVIORAL DISTURBANCE
--- NOTE | 2017-06-12 15:33 | PN ---
Progress Note (short form) - Note Progress Note: awake and alert feels well no dysuria Vital Signs Period Temp Pulse Resp BP Sys/Amador Pulse Ox Last 24 Hr 98.0 F-99.5 F 74-100 16-86 106-165/60-94 92-96 cor-rrr lungs crackles at bases abd soft,nt ext no edema CBC, BMP 06/12/17 06:05 06/12/17 06:05 Microbiology 06/11/17 06:40 Urine - Urine Clean Catch Urine Culture - Preliminary Proteus Species 06/11/17 05:00 Blood - Peripheral Venous Blood Culture - Preliminary NO GROWTH OBTAINED AFTER 24 HOURS, INCUBATION TO CONTINUE FOR 4 DAYS. 06/11/17 05:50 Blood - Peripheral Venous Blood Culture - Preliminary NO GROWTH OBTAINED AFTER 24 HOURS, INCUBATION TO CONTINUE FOR 4 DAYS. imp/reccd acute hypoxemic resp failure- now on NC chf htn positive troponins doubt pneumonia asymptomatic bacteriuria- would not treat urine isolate at this time recent cdiff lasting several months, normal stools for last 2 weeks no need for antibiotics at this time Problem List - Problems (1) Acute hypoxemic respiratory failure Code(s): J96.01 - ACUTE RESPIRATORY FAILURE WITH HYPOXIA (2) CHF (congestive heart failure) Code(s): I50.9 - HEART FAILURE, UNSPECIFIED (3) Hypertensive urgency Code(s): I16.0 - HYPERTENSIVE URGENCY (4) Elevated troponin Code(s): R74.8 - ABNORMAL LEVELS OF OTHER SERUM ENZYMES
--- NOTE | 2017-06-12 16:13 | PN ---
Progress Note, Physician Chief Complaint: Symptomatically improved History of Present Illness: This is an 87 year old female with a PMH of HTN, HLD, COPD, Alzheimer's disease , GERD and C. Diff. She presents on 06/11/17 with DELGADO and hypoxia. O2 sat was 79% on room air with EMS and then increased to 91% on Bipap. Her BP was noted to be elevated. CXR showed interstial lung disease with CHF. Initially, WBC 12.3. Troponin levels are positive 0.58 -> 0.14. BNP 2859. Echocardiogram 06/11/17: EF 66% Mild concentric LVH Moderate TR RVSP 51 mmHg Normal RV size and function 06/12/17 Presently resting comfortably. - Current Medication List Current Medications: Active Medications Acetaminophen (Tylenol -) 650 mg PO Q4H PRN PRN Reason: FEVER OR PAIN Last Admin: 06/11/17 11:54 Dose: 650 mg Atorvastatin Calcium (Lipitor -) 40 mg PO HS [facility] Last Admin: 06/11/17 21:33 Dose: 40 mg Collagenase (Santyl -) 1 applic TP DAILY [facility] Cyanocobalamin (Vitamin B12 -) 1,000 mcg PO DAILY [facility] Last Admin: 06/12/17 09:29 Dose: 1,000 mcg Donepezil HCl (Aricept -) 10 mg PO HS [facility] Last Admin: 06/11/17 21:36 Dose: 10 mg Furosemide (Lasix Injection -) 40 mg IVPB DAILY [facility] Last Admin: 06/12/17 09:29 Dose: 40 mg Hydralazine HCl (Apresoline -) 25 mg PO BID [facility] Last Admin: 06/12/17 09:29 Dose: 25 mg Metoprolol Succinate (Toprol Xl -) 50 mg PO DAILY [facility] Last Admin: 06/12/17 09:29 Dose: 50 mg Potassium Chloride (K-Dur -) 20 meq PO DAILY [facility] Risperidone (Risperdal -) 0.5 mg PO HS [facility] Last Admin: 06/11/17 21:36 Dose: 0.5 mg Sertraline HCl (Zoloft -) 25 mg PO DAILY [facility] Last Admin: 06/12/17 09:29 Dose: 25 mg Sodium Chloride (Normal Saline -) 250 ml IV Q20M PRN PRN Reason: MAP<65mm Hg OR SBP <90 - Objective Vital Signs: Vital Signs Temperature 98.7 F 06/12/17 15:48 Pulse Rate 79 06/12/17 15:48 Respiratory Rate 18 06/12/17 10:00 Blood Pressure 145/73 06/12/17 15:48 O2 Sat by Pulse Oximetry (%) 95 06/12/17 13:58 Constitutional: Yes: No Distress Eyes: Yes: WNL Neck: Yes: WNL Respiratory: Yes: CTA Bilaterally Gastrointestinal: Yes: Soft Edema: LLE: Trace, RLE: Trace Neurological: Yes: Alert (Non focal) Psychiatric: Yes: WNL Labs: CBC, BMP 06/12/17 06:05 06/12/17 06:05 INR, PTT INR 1.12 (0.82-1.09) 06/11/17 04:05 Assessment/Plan 87 year old female with a PMH of HTN, HLD, COPD, Alzheimer's disease, GERD and C. Diff. She presents on 06/11/17 with DELGADO and hypoxia. O2 sat was 79% on room air with EMS and then increased to 91% on Bipap. Her BP was noted to be elevated. CXR showed interstial lung disease with CHF. WBC 12.3. Troponin levels are positive 0.58 -> 0.14. BNP 2859. EKG NSR with a prolonged QT intervals CHF Given elevated BNP and CXR finding, would given Lasix 40 mg IVSS daily Daily lytes Would replete K+ to ~ 4.0 Continue /Metoprolol/Hydralazine QTc is 510 mg, would consider DC'ing Risperidone Will follow with you.
--- NOTE | 2017-06-12 18:00 | CON.PSY ---
Psychiatry Consult Chief Complaint: I am ok. Symptoms: reports: Anxiety - Previous Psychiatric Treatment Outpatient: None - Previous Substance Abuse Treatment Outpatient: None - Current Medications Current Medications: Active Medications Acetaminophen (Tylenol -) 650 mg PO Q4H PRN PRN Reason: FEVER OR PAIN Last Admin: 06/11/17 11:54 Dose: 650 mg Atorvastatin Calcium (Lipitor -) 40 mg PO HS [facility] Last Admin: 06/11/17 21:33 Dose: 40 mg Collagenase (Santyl -) 1 applic TP DAILY [facility] Cyanocobalamin (Vitamin B12 -) 1,000 mcg PO DAILY [facility] Last Admin: 06/12/17 09:29 Dose: 1,000 mcg Donepezil HCl (Aricept -) 10 mg PO HS [facility] Last Admin: 06/11/17 21:36 Dose: 10 mg Furosemide (Lasix Injection -) 40 mg IVPB DAILY [facility] Last Admin: 06/12/17 09:29 Dose: 40 mg Hydralazine HCl (Apresoline -) 25 mg PO BID [facility] Last Admin: 06/12/17 09:29 Dose: 25 mg Metoprolol Succinate (Toprol Xl -) 50 mg PO DAILY [facility] Last Admin: 06/12/17 09:29 Dose: 50 mg Potassium Chloride (K-Dur -) 20 meq PO DAILY [facility] Sodium Chloride (Normal Saline -) 250 ml IV Q20M PRN PRN Reason: MAP<65mm Hg OR SBP <90 - Allergies Allergies: Allergies Allergy/AdvReac Type Severity Reaction Status Date / Time No Known Allergies Allergy Verified 06/11/17 03:53 - Current Living Status Usual Living Arrangement: Alone - Current Mental Status Evaluation Appearance: Well Groomed Attitude: Cooperative - Affect Affect: Constrictive Appropriateness: Appropriate to Content - Mood Mood: Euthymic - Speech/Language Expressive: Delayed - Psychomotor Activity Psychomotor Activity: Slowed - Thought Process Thought Process: Circumstantial - Thought Content Hallucinations: Absent Delusions: Absent - Self Perception Self Perception: Depersonalization - Cognition Attention: Alert Orientation: Time Memory, Immediate Recall: Impaired Memory, Short Term: 1/3 Memory, Remote with Promptin/3 - Concentration Serial Sevens Intact: No Simple Calculations Intact: No - Abstraction Proverb Interpretation: Impaired Judgement: Intact - Insight Insight: Intact - Impulse Control Impulse Control: Good Control - Suicidal Ideation Suicidal Ideation: No - Homicidal Ideation Homicidal Ideation: No Assessment/Plan 1) d/c zOLOFT AND rISAPERIDAL 2) NsTART rEMERON 15MG PO HS FOR [facility] AND DYSPHORIA.
[2017-06-12] MEDS: DONEPEZIL HCL 10 MG TABLET (FP) PO SCH (22:13)
[2017-06-12] MEDS: ATORVASTATIN CA 40 MG TABLET (FP) PO SCH (22:13)
[2017-06-13 07:45] LABS: BASOPHIL 0.6 % (0-2.0); EOSINOPHIL 1.4 % (0-4.5); MCH 31.7 pg (25.7-33.7); MEAN CELL VOLUME 93.5 fl (80-96); MEAN PLT VOLUME 7.3 fl (7.5-11.1); NEUTROPHILS 82.2 % (42.8-82.8); PLATELET COUNT 262 K/MM3 (134-434); RDW 17.9 % (11.6-15.6); WHITE BLOOD COUNT 8.1 K/mm3 (4.0-10.0)
[2017-06-13 08:26] LABS: ALBUMIN 2.7 g/dl (3.4-5.0); ALK PHOS 82 U/L (45-117); ANION GAP 9 (8-16); BILIRUBIN,TOTAL 0.8 mg/dL (0.2-1.0); CALCIUM 8.2 mg/dL (8.5-10.1); CO2 28 mmol/L (21-32); CREATININE 0.4 mg/dL (0.55-1.02); GLUCOSE,RANDOM 102 mg/dL (74-106); SGOT/AST 14 U/L (15-37); SGPT/ALT 15 U/L (12-78); TOT PROT 5.7 g/dl (6.4-8.2)
--- NOTE | 2017-06-13 11:04 | PN ---
Progress Note, Physician History of Present Illness: PULMONARY ALERT,-RESP DISTRESS - Current Medication List Current Medications: Active Medications Acetaminophen (Tylenol -) 650 mg PO Q4H PRN PRN Reason: FEVER OR PAIN Last Admin: 06/11/17 11:54 Dose: 650 mg Atorvastatin Calcium (Lipitor -) 40 mg PO HS [facility] Last Admin: 06/12/17 22:13 Dose: 40 mg Collagenase (Santyl -) 1 applic TP DAILY [facility] Cyanocobalamin (Vitamin B12 -) 1,000 mcg PO DAILY [facility] Last Admin: 06/12/17 09:29 Dose: 1,000 mcg Donepezil HCl (Aricept -) 10 mg PO HS [facility] Last Admin: 06/12/17 22:13 Dose: 10 mg Furosemide (Lasix Injection -) 40 mg IVPB DAILY [facility] Last Admin: 06/12/17 09:29 Dose: 40 mg Hydralazine HCl (Apresoline -) 25 mg PO BID [facility] Last Admin: 06/12/17 22:13 Dose: 25 mg Metoprolol Succinate (Toprol Xl -) 50 mg PO DAILY [facility] Last Admin: 06/12/17 09:29 Dose: 50 mg Mirtazapine (Remeron -) 15 mg PO HS [facility] Potassium Chloride (K-Dur -) 20 meq PO DAILY [facility] Sodium Chloride (Normal Saline -) 250 ml IV Q20M PRN PRN Reason: MAP<65mm Hg OR SBP <90 - Objective Vital Signs: Vital Signs Temperature 98.1 F 06/13/17 02:00 Pulse Rate 63 06/13/17 10:29 Respiratory Rate 24 06/13/17 02:00 Blood Pressure 152/94 06/13/17 02:00 O2 Sat by Pulse Oximetry (%) 94 L 06/13/17 10:29 Constitutional: Yes: Calm, Thin Eyes: Yes: WNL HENT: Yes: WNL Neck: Yes: WNL Cardiovascular: Yes: Regular Rate and Rhythm, S1, S2 Respiratory: Yes: Rales (BIBASILAR RALES) Gastrointestinal: Yes: Normal Bowel Sounds, Soft Extremities: Yes: WNL Edema: No Labs: CBC, BMP 06/13/17 05:50 06/13/17 05:50 INR, PTT INR 1.12 (0.82-1.09) 06/11/17 04:05 - ....Imaging Chest X-ray: Report Reviewed, Image Reviewed (IMPROVING CONGESTION BILATERALLY) Problem List - Problems (1) CHF (congestive heart failure) Code(s): I50.9 - HEART FAILURE, UNSPECIFIED (2) Elevated troponin Code(s): R74.8 - ABNORMAL LEVELS OF OTHER SERUM ENZYMES (3) Hypoxia Code(s): R09.02 - HYPOXEMIA (4) Acute hypoxemic respiratory failure Code(s): J96.01 - ACUTE RESPIRATORY FAILURE WITH HYPOXIA (5) Hypertensive urgency Code(s): I16.0 - HYPERTENSIVE URGENCY (6) Dementia Code(s): F03.90 - UNSPECIFIED DEMENTIA WITHOUT BEHAVIORAL DISTURBANCE Assessment/Plan IMP ACUTE HYPOXEMIC RESPIRATORY FAILURE IMPROVED DECOMPENSATED CHF IMPROVING HYPERTENSIVE URGENCY IMPROVED PULMONARY HYPERTENSION +TROPONINS DEMENTIA GERD ? H/O COPD PLAN LASIX PER CARDIOLOGY SUPPLEMENTAL O2 NIPPV IF DEVELOPES RESPIRATORY DISTRESS MONITOR BP STRICT I+OS DR GARCIA Problem List - Problems (1) CHF (congestive heart failure) Code(s): I50.9 - HEART FAILURE, UNSPECIFIED (2) Elevated troponin Code(s): R74.8 - ABNORMAL LEVELS OF OTHER SERUM ENZYMES (3) Hypoxia Code(s): R09.02 - HYPOXEMIA (4) Acute hypoxemic respiratory failure Code(s): J96.01 - ACUTE RESPIRATORY FAILURE WITH HYPOXIA (5) Hypertensive urgency Code(s): I16.0 - HYPERTENSIVE URGENCY (6) Dementia Code(s): F03.90 - UNSPECIFIED DEMENTIA WITHOUT BEHAVIORAL DISTURBANCE
[2017-06-13] MEDS: COLLAGENASE CLOSTRIDIUM HIST. 30 GRAMS TUBE TP SCH (11:10)
[2017-06-13] MEDS: CYANOCOBALAMIN 1,000 MCG TABLET (FP) PO SCH (11:10)
[2017-06-13] MEDS: METOPROLOL SUCCINATE 50 MG TAB.SR.24H (FP) PO SCH (11:10)
[2017-06-13] MEDS: hydrALAZINE HCL 25 MG TABLET (FP) PO SCH ×2 (11:10→22:10)
[2017-06-13] MEDS: POTASSIUM CHLORIDE TABS 20 MEQ TABLET.ER (FP) PO SCH (11:10)
[2017-06-13] MEDS: FUROSEMIDE 40 MG/4 ML INJECTABLE VIAL IVPB SCH (11:11)
--- NOTE | 2017-06-13 12:35 | PN ---
Progress Note, Physician - Current Medication List Current Medications: Active Medications Acetaminophen (Tylenol -) 650 mg PO Q4H PRN PRN Reason: FEVER OR PAIN Last Admin: 06/11/17 11:54 Dose: 650 mg Atorvastatin Calcium (Lipitor -) 40 mg PO HS [facility] Last Admin: 06/12/17 22:13 Dose: 40 mg Collagenase (Santyl -) 1 applic TP DAILY [facility] Last Admin: 06/13/17 11:10 Dose: 1 applic Cyanocobalamin (Vitamin B12 -) 1,000 mcg PO DAILY [facility] Last Admin: 06/13/17 11:10 Dose: 1,000 mcg Donepezil HCl (Aricept -) 10 mg PO HS [facility] Last Admin: 06/12/17 22:13 Dose: 10 mg Furosemide (Lasix Injection -) 40 mg IVPB DAILY [facility] Last Admin: 06/13/17 11:11 Dose: 40 mg Hydralazine HCl (Apresoline -) 25 mg PO BID [facility] Last Admin: 06/13/17 11:10 Dose: 25 mg Metoprolol Succinate (Toprol Xl -) 50 mg PO DAILY [facility] Last Admin: 06/13/17 11:10 Dose: 50 mg Mirtazapine (Remeron -) 15 mg PO HS [facility] Potassium Chloride (K-Dur -) 20 meq PO DAILY [facility] Last Admin: 06/13/17 11:10 Dose: 20 meq Sodium Chloride (Normal Saline -) 250 ml IV Q20M PRN PRN Reason: MAP<65mm Hg OR SBP <90 - Objective Vital Signs: Vital Signs Temperature 97.8 F 06/13/17 10:00 Pulse Rate 63 06/13/17 10:29 Respiratory Rate 18 06/13/17 10:00 Blood Pressure 138/80 06/13/17 10:00 O2 Sat by Pulse Oximetry (%) 94 L 06/13/17 10:29 Labs: CBC, BMP 06/13/17 05:50 06/13/17 05:50 INR, PTT INR 1.12 (0.82-1.09) 06/11/17 04:05 Problem List - Problems (1) Acute hypoxemic respiratory failure Assessment/Plan: imprioving on lasix Code(s): J96.01 - ACUTE RESPIRATORY FAILURE WITH HYPOXIA (2) CHF (congestive heart failure) Assessment/Plan: iv lasix monitor lytes metaprolol and hydralazine Code(s): I50.9 - HEART FAILURE, UNSPECIFIED (3) Dementia Assessment/Plan: on remeron stop risperidol and zoloft on aricept Code(s): F03.90 - UNSPECIFIED DEMENTIA WITHOUT BEHAVIORAL DISTURBANCE (4) Leukocytosis Assessment/Plan: resolved asymtpomatic bacteruria ID note appreciated no need for abx Code(s): D72.829 - ELEVATED WHITE BLOOD CELL COUNT, UNSPECIFIED
--- NOTE | 2017-06-13 15:03 | PN ---
Progress Note, Physician Chief Complaint: Symptomatically improved History of Present Illness: This is an 87 year old female with a PMH of HTN, HLD, COPD, Alzheimer's disease , GERD and C. Diff. She presents on 06/11/17 with DELGADO and hypoxia. O2 sat was 79% on room air with EMS and then increased to 91% on Bipap. Her BP was noted to be elevated. CXR showed interstial lung disease with CHF. Initially, WBC 12.3. Troponin levels are positive 0.58 -> 0.14. BNP 2859. Echocardiogram 06/11/17: EF 66% Mild concentric LVH Moderate TR RVSP 51 mmHg Normal RV size and function 06/13/17 Remains comfortable. - Current Medication List Current Medications: Active Medications Acetaminophen (Tylenol -) 650 mg PO Q4H PRN PRN Reason: FEVER OR PAIN Last Admin: 06/11/17 11:54 Dose: 650 mg Atorvastatin Calcium (Lipitor -) 40 mg PO HS [facility] Last Admin: 06/12/17 22:13 Dose: 40 mg Collagenase (Santyl -) 1 applic TP DAILY [facility] Last Admin: 06/13/17 11:10 Dose: 1 applic Cyanocobalamin (Vitamin B12 -) 1,000 mcg PO DAILY [facility] Last Admin: 06/13/17 11:10 Dose: 1,000 mcg Donepezil HCl (Aricept -) 10 mg PO HS [facility] Last Admin: 06/12/17 22:13 Dose: 10 mg Furosemide (Lasix Injection -) 40 mg IVPB DAILY [facility] Last Admin: 06/13/17 11:11 Dose: 40 mg Hydralazine HCl (Apresoline -) 25 mg PO BID [facility] Last Admin: 06/13/17 11:10 Dose: 25 mg Metoprolol Succinate (Toprol Xl -) 50 mg PO DAILY [facility] Last Admin: 06/13/17 11:10 Dose: 50 mg Mirtazapine (Remeron -) 15 mg PO HS [facility] Potassium Chloride (K-Dur -) 20 meq PO DAILY [facility] Last Admin: 06/13/17 11:10 Dose: 20 meq Sodium Chloride (Normal Saline -) 250 ml IV Q20M PRN PRN Reason: MAP<65mm Hg OR SBP <90 - Objective Vital Signs: Vital Signs Temperature 97.8 F 06/13/17 10:00 Pulse Rate 63 06/13/17 10:29 Respiratory Rate 18 06/13/17 10:00 Blood Pressure 138/80 06/13/17 10:00 O2 Sat by Pulse Oximetry (%) 94 L 06/13/17 10:29 Constitutional: Yes: Well Nourished Neck: Yes: WNL Cardiovascular: Yes: Regular Rate and Rhythm, S1, S2 (No MRHG) Respiratory: Yes: CTA Bilaterally Gastrointestinal: Yes: Soft Edema: LLE: Trace, RLE: Trace Neurological: Yes: Alert, Oriented (Nonfocal) Psychiatric: Yes: WNL Labs: CBC, BMP 06/13/17 05:50 06/13/17 05:50 INR, PTT INR 1.12 (0.82-1.09) 06/11/17 04:05 Assessment/Plan 87 year old female with a PMH of HTN, HLD, COPD, Alzheimer's disease, GERD and C. Diff. She presents on 06/11/17 with DELGADO and hypoxia. O2 sat was 79% on room air with EMS and then increased to 91% on Bipap. Her BP was noted to be elevated. CXR showed interstial lung disease with CHF. WBC 12.3. Troponin levels are positive 0.58 -> 0.14. BNP 2859. EKG NSR with a prolonged QT intervals Echocardiogram 06/11/17: EF 66% Mild concentric LVH Moderate TR RVSP 51 mmHg Normal RV size and function Diastolic CHF Acute on Chronic Would change to PO Lasix 40 mg daily Daily lytes Would replete K+ to ~ 4.0 Continue /Metoprolol/Hydralazine QTc is 510 mg, agree with pyschiatry to stop Zoloft and rispaperidal and replacing it with Remeron 15 mg QHS. This should improve the QTc on EKG. Will follow with you.
[2017-06-13] MEDS: ACETAMINOPHEN 325 MG TABLET (FP) PO PRN (22:10)
[2017-06-13] MEDS: ATORVASTATIN CA 40 MG TABLET (FP) PO SCH (22:10)
[2017-06-13] MEDS: DONEPEZIL HCL 10 MG TABLET (FP) PO SCH (22:11)
[2017-06-13] MEDS: MIRTAZAPINE 15 MG TABLET (FP) PO SCH (22:11)
[2017-06-14 07:46] LABS: ALBUMIN 2.5 g/dl (3.4-5.0); ANION GAP 9 (8-16); CALCIUM 8.1 mg/dL (8.5-10.1); CO2 29 mmol/L (21-32); CREATININE 0.5 mg/dL (0.55-1.02); GLUCOSE,RANDOM 87 mg/dL (74-106); SGOT/AST 12 U/L (15-37); SGPT/ALT 15 U/L (12-78)
[2017-06-14 07:48] LABS: ALK PHOS 82 U/L (45-117); BILIRUBIN,TOTAL 0.6 mg/dL (0.2-1.0); TOT PROT 5.7 g/dl (6.4-8.2)
[2017-06-14] MEDS: POTASSIUM CHLORIDE TABS 20 MEQ TABLET.ER (FP) PO SCH (09:45)
[2017-06-14] MEDS: hydrALAZINE HCL 25 MG TABLET (FP) PO SCH ×2 (09:45→21:44)
[2017-06-14] MEDS: COLLAGENASE CLOSTRIDIUM HIST. 30 GRAMS TUBE TP SCH (09:45)
[2017-06-14] MEDS: CYANOCOBALAMIN 1,000 MCG TABLET (FP) PO SCH (09:45)
[2017-06-14] MEDS: FUROSEMIDE 40 MG/4 ML INJECTABLE VIAL IVPB SCH (09:45)
[2017-06-14] MEDS: METOPROLOL SUCCINATE 50 MG TAB.SR.24H (FP) PO SCH (09:45)
--- NOTE | 2017-06-14 10:36 | PN ---
Progress Note, Physician Chief Complaint: Sepsis, Elevated Troponin History of Present Illness: This is an 87 year old female with a PMH of HTN, HLD, COPD, Alzheimer's disease , GERD and C. Diff. She presents on 06/11/17 with DELGADO and hypoxia. O2 sat was 79% on room air with EMS and then increased to 91% on Bipap. Her BP was noted to be elevated. CXR showed interstial lung disease with CHF. Initially, WBC 12.3. Troponin levels are positive 0.58 -> 0.14. BNP 2859. Patient comfortable in bed, NAD - Current Medication List Current Medications: Active Medications Acetaminophen (Tylenol -) 650 mg PO Q4H PRN PRN Reason: FEVER OR PAIN Last Admin: 06/13/17 22:10 Dose: 650 mg Atorvastatin Calcium (Lipitor -) 40 mg PO HS [facility] Last Admin: 06/13/17 22:10 Dose: 40 mg Collagenase (Santyl -) 1 applic TP DAILY [facility] Last Admin: 06/14/17 09:45 Dose: 1 applic Cyanocobalamin (Vitamin B12 -) 1,000 mcg PO DAILY [facility] Last Admin: 06/14/17 09:45 Dose: 1,000 mcg Donepezil HCl (Aricept -) 10 mg PO HS [facility] Last Admin: 06/13/17 22:11 Dose: 10 mg Furosemide (Lasix Injection -) 40 mg IVPB DAILY [facility] Last Admin: 06/14/17 09:45 Dose: 40 mg Hydralazine HCl (Apresoline -) 25 mg PO BID [facility] Last Admin: 06/14/17 09:45 Dose: 25 mg Metoprolol Succinate (Toprol Xl -) 50 mg PO DAILY [facility] Last Admin: 06/14/17 09:45 Dose: 50 mg Mirtazapine (Remeron -) 15 mg PO HS [facility] Last Admin: 06/13/17 22:11 Dose: 15 mg Potassium Chloride (K-Dur -) 20 meq PO DAILY [facility] Last Admin: 06/14/17 09:45 Dose: 20 meq Sodium Chloride (Normal Saline -) 250 ml IV Q20M PRN PRN Reason: MAP<65mm Hg OR SBP <90 - Objective Vital Signs: Vital Signs Temperature 98.4 F 06/14/17 06:00 Pulse Rate 68 06/14/17 06:00 Respiratory Rate 18 06/14/17 06:00 Blood Pressure 164/81 06/14/17 06:00 O2 Sat by Pulse Oximetry (%) 98 06/14/17 06:00 Constitutional: Yes: No Distress, Calm Cardiovascular: Yes: S1, S2, Other (Irregular rate) Respiratory: Yes: Regular, Rales (bibasilar) Gastrointestinal: Yes: Normal Bowel Sounds, Soft Edema: No Peripheral Pulses WNL: Yes Neurological: Yes: Alert Labs: CBC, BMP 06/13/17 05:50 06/14/17 05:35 INR, PTT INR 1.12 (0.82-1.09) 06/11/17 04:05 Problem List - Problems (1) Acute hypoxemic respiratory failure Assessment/Plan: improving on lasix Code(s): J96.01 - ACUTE RESPIRATORY FAILURE WITH HYPOXIA (2) CHF (congestive heart failure) Assessment/Plan: on lasix monitor lytes Code(s): I50.9 - HEART FAILURE, UNSPECIFIED (3) Elevated troponin Code(s): R74.8 - ABNORMAL LEVELS OF OTHER SERUM ENZYMES (4) Hypokalemia Assessment/Plan: replete K as needed monitor lytes Code(s): E87.6 - HYPOKALEMIA Assessment/Plan Problem List - Problems (1) Acute hypoxemic respiratory failure Assessment/Plan: imprioving on lasix Code(s): J96.01 - ACUTE RESPIRATORY FAILURE WITH HYPOXIA (2) CHF (congestive heart failure) Assessment/Plan: on lasix, change to PO monitor lytes metaprolol and hydralazine Code(s): I50.9 - HEART FAILURE, UNSPECIFIED (3) Dementia Assessment/Plan: on remeron stop risperidol and zoloft on aricept Code(s): F03.90 - UNSPECIFIED DEMENTIA WITHOUT BEHAVIORAL DISTURBANCE (4) Leukocytosis Assessment/Plan: resolved asymtpomatic bacteruria ID note appreciated no need for abx Code(s): D72.829 - ELEVATED WHITE BLOOD CELL COUNT, UNSPECIFIED (5) Hypokalemia Assessment/Plan: Laboratory Tests 06/11/17 06/12/17 06/13/17 11:00 06:05 05:50 Potassium 3.6 3.3 L 3.3 L replete K, ordered KCL 40mEq PO now monitor lytes
[2017-06-14] MEDS ORDERED: POTASSIUM CHLORIDE TABS 20 MEQ TABLET.ER (FP) PO ONE (11:15)
--- NOTE | 2017-06-14 14:14 | PN ---
Progress Note (short form) - Note Progress Note: Resting in NAD. No acute events overnight. No CP or SOB. Intake & Output 06/11/17 06/12/17 06/13/17 06/14/17 23:59 23:59 23:59 23:59 Intake Total 360 1020 910 250 Balance 360 1020 910 250 Weight 125 lb 144 lb 119 lb 116 lb 12.8 oz Last Vital Signs Temp Pulse Resp BP Pulse Ox 98.4 F 68 18 164/81 94 L 06/14/17 06:00 06/14/17 06:00 06/14/17 06:00 06/14/17 06:00 06/14/17 09:00 Active Medications Acetaminophen (Tylenol -) 650 mg PO Q4H PRN PRN Reason: FEVER OR PAIN Last Admin: 06/13/17 22:10 Dose: 650 mg Atorvastatin Calcium (Lipitor -) 40 mg PO HS [facility] Last Admin: 06/13/17 22:10 Dose: 40 mg Collagenase (Santyl -) 1 applic TP DAILY [facility] Last Admin: 06/14/17 09:45 Dose: 1 applic Cyanocobalamin (Vitamin B12 -) 1,000 mcg PO DAILY [facility] Last Admin: 06/14/17 09:45 Dose: 1,000 mcg Donepezil HCl (Aricept -) 10 mg PO HS [facility] Last Admin: 06/13/17 22:11 Dose: 10 mg Furosemide (Lasix -) 40 mg PO DAILY [facility] Hydralazine HCl (Apresoline -) 25 mg PO BID [facility] Last Admin: 06/14/17 09:45 Dose: 25 mg Metoprolol Succinate (Toprol Xl -) 50 mg PO DAILY [facility] Last Admin: 06/14/17 09:45 Dose: 50 mg Mirtazapine (Remeron -) 15 mg PO HS [facility] Last Admin: 06/13/17 22:11 Dose: 15 mg Potassium Chloride (K-Dur -) 20 meq PO DAILY [facility] Last Admin: 06/14/17 09:45 Dose: 20 meq Sodium Chloride (Normal Saline -) 250 ml IV Q20M PRN PRN Reason: MAP<65mm Hg OR SBP <90 Constitutional: Yes: NAD, Thin Eyes: Yes: WNL HENT: Yes: WNL Neck: Yes: WNL Cardiovascular: Yes: Regular Rate and Rhythm, S1, S2 Respiratory: Yes: Few bibasilar Rales Gastrointestinal: Yes: Normal Bowel Sounds, Soft Extremities: Yes: WNL Edema: No Labs: Laboratory Results - last 24 hr 06/14/17 05:35 Sodium 140 Potassium 3.3 L Chloride 102 Carbon Dioxide 29 Anion Gap 9 BUN 21 H Creatinine 0.5 L D Creat Clearance w eGFR > 60 Random Glucose 87 Calcium 8.1 L Magnesium 2.0 Total Bilirubin 0.6 D AST 12 L ALT 15 Alkaline Phosphatase 82 Total Protein 5.7 L Albumin 2.5 L Problem List - Problems (1) CHF (congestive heart failure) Code(s): I50.9 - HEART FAILURE, UNSPECIFIED (2) Elevated troponin Code(s): R74.8 - ABNORMAL LEVELS OF OTHER SERUM ENZYMES (3) Hypoxia Code(s): R09.02 - HYPOXEMIA (4) Acute hypoxemic respiratory failure Code(s): J96.01 - ACUTE RESPIRATORY FAILURE WITH HYPOXIA (5) Hypertensive urgency Code(s): I16.0 - HYPERTENSIVE URGENCY (6) Dementia Code(s): F03.90 - UNSPECIFIED DEMENTIA WITHOUT BEHAVIORAL DISTURBANCE Assessment/Plan IMP ACUTE HYPOXEMIC RESPIRATORY FAILURE IMPROVED DECOMPENSATED CHF IMPROVING HYPERTENSIVE URGENCY IMPROVED PULMONARY HYPERTENSION +TROPONINS DEMENTIA GERD ? H/O COPD PLAN LASIX REPLETE LYTES SUPPLEMENTAL O2 NEEDED DAILY [facility] MARTINEZ
[2017-06-14] MEDS: ATORVASTATIN CA 40 MG TABLET (FP) PO SCH (21:44)
[2017-06-14] MEDS: DONEPEZIL HCL 10 MG TABLET (FP) PO SCH (21:44)
[2017-06-14] MEDS: MIRTAZAPINE 15 MG TABLET (FP) PO SCH (21:44)
[2017-06-15 07:28] LABS: BASOPHIL 0.7 % (0-2.0); EOSINOPHIL 1.5 % (0-4.5); MCH 31.4 pg (25.7-33.7); MCHC 33.4 g/dl (32.0-36.0); MEAN CELL VOLUME 93.9 fl (80-96); MEAN PLT VOLUME 7.4 fl (7.5-11.1); NEUTROPHILS 80.7 % (42.8-82.8); PLATELET COUNT 268 K/MM3 (134-434); RDW 17.9 % (11.6-15.6); WHITE BLOOD COUNT 9.4 K/mm3 (4.0-10.0)
[2017-06-15 07:47] LABS: ALBUMIN 2.6 g/dl (3.4-5.0); ANION GAP 6 (8-16); CALCIUM 8.4 mg/dL (8.5-10.1); CO2 30 mmol/L (21-32)
[2017-06-15 07:53] LABS: ALK PHOS 75 U/L (45-117); BILIRUBIN,TOTAL 0.6 mg/dL (0.2-1.0); CREATININE 0.5 mg/dL (0.55-1.02); GLUCOSE,RANDOM 83 mg/dL (74-106); SGOT/AST 8 U/L (15-37); SGPT/ALT 14 U/L (12-78); TOT PROT 5.6 g/dl (6.4-8.2)
[2017-06-15] MEDS: POTASSIUM CHLORIDE TABS 20 MEQ TABLET.ER (FP) PO SCH (09:18)
[2017-06-15] MEDS: hydrALAZINE HCL 25 MG TABLET (FP) PO SCH ×2 (09:18→21:07)
[2017-06-15] MEDS: FUROSEMIDE 40 MG TABLET (FP) PO SCH (09:18)
[2017-06-15] MEDS: METOPROLOL SUCCINATE 50 MG TAB.SR.24H (FP) PO SCH (09:18)
[2017-06-15] MEDS: COLLAGENASE CLOSTRIDIUM HIST. 30 GRAMS TUBE TP SCH ×2 (09:18→21:19)
[2017-06-15] MEDS: CYANOCOBALAMIN 1,000 MCG TABLET (FP) PO SCH (09:18)
[2017-06-15] MEDS ORDERED: POTASSIUM CHLORIDE TABS 20 MEQ TABLET.ER (FP) PO SCH (10:16)
--- NOTE | 2017-06-15 10:16 | PN ---
Progress Note, Physician - Current Medication List Current Medications: Active Medications Acetaminophen (Tylenol -) 650 mg PO Q4H PRN PRN Reason: FEVER OR PAIN Last Admin: 06/13/17 22:10 Dose: 650 mg Atorvastatin Calcium (Lipitor -) 40 mg PO HS [facility] Last Admin: 06/14/17 21:44 Dose: 40 mg Collagenase (Santyl -) 1 applic TP DAILY [facility] Last Admin: 06/15/17 09:18 Dose: 1 applic Cyanocobalamin (Vitamin B12 -) 1,000 mcg PO DAILY [facility] Last Admin: 06/15/17 09:18 Dose: 1,000 mcg Donepezil HCl (Aricept -) 10 mg PO HS [facility] Last Admin: 06/14/17 21:44 Dose: 10 mg Furosemide (Lasix -) 40 mg PO DAILY [facility] Last Admin: 06/15/17 09:18 Dose: 40 mg Hydralazine HCl (Apresoline -) 25 mg PO BID [facility] Last Admin: 06/15/17 09:18 Dose: 25 mg Metoprolol Succinate (Toprol Xl -) 50 mg PO DAILY [facility] Last Admin: 06/15/17 09:18 Dose: 50 mg Mirtazapine (Remeron -) 15 mg PO HS [facility] Last Admin: 06/14/17 21:44 Dose: 15 mg Potassium Chloride (K-Dur -) 20 meq PO DAILY [facility] Last Admin: 06/15/17 09:18 Dose: 20 meq Sodium Chloride (Normal Saline -) 250 ml IV Q20M PRN PRN Reason: MAP<65mm Hg OR SBP <90 - Objective Vital Signs: Vital Signs Temperature 99.1 F 06/15/17 06:00 Pulse Rate 86 06/15/17 06:00 Respiratory Rate 16 06/15/17 06:00 Blood Pressure 147/76 06/15/17 06:00 O2 Sat by Pulse Oximetry (%) 96 06/14/17 20:11 Cardiovascular: Yes: S1, S2 Respiratory: Yes: Regular, CTA Bilaterally Gastrointestinal: Yes: Normal Bowel Sounds, Soft Labs: CBC, BMP 06/15/17 05:35 06/15/17 05:35 INR, PTT INR 1.12 (0.82-1.09) 06/11/17 04:05 Problem List - Problems (1) Elevated troponin Code(s): R74.8 - ABNORMAL LEVELS OF OTHER SERUM ENZYMES (2) Hypoxia Code(s): R09.02 - HYPOXEMIA (3) CHF (congestive heart failure) Code(s): I50.9 - HEART FAILURE, UNSPECIFIED (4) Leukocytosis Code(s): D72.829 - ELEVATED WHITE BLOOD CELL COUNT, UNSPECIFIED Assessment/Plan Assessment/Plan Problem List - Problems (1) Acute hypoxemic respiratory failure Assessment/Plan: due to chf improving on lasix Code(s): J96.01 - ACUTE RESPIRATORY FAILURE WITH HYPOXIA (2) CHF (congestive heart failure) Assessment/Plan: on lasix, change to PO monitor lytes metaprolol and hydralazine Code(s): I50.9 - HEART FAILURE, UNSPECIFIED (3) Dementia Assessment/Plan: on remeron stop risperidol and zoloft on aricept Code(s): F03.90 - UNSPECIFIED DEMENTIA WITHOUT BEHAVIORAL DISTURBANCE (4) Leukocytosis Assessment/Plan: resolved asymptomatic bacteruria ID note appreciated no need for abx Code(s): D72.829 - ELEVATED WHITE BLOOD CELL COUNT, UNSPECIFIED (5) Hypokalemia Assessment/Plan: replete K, monitor lytes
[2017-06-15] MEDS ORDERED: POTASSIUM CHLORIDE 20 MEQ, POTASSIUM CHLORIDE 10 MEQ PO ONE (10:45)
[2017-06-15] MEDS ORDERED: POTASSIUM CHLORIDE 20 MEQ, POTASSIUM CHLORIDE 10 MEQ PO SCH (10:45)
[2017-06-15] MEDS ORDERED: POTASSIUM CHLORIDE TABS 20 MEQ TABLET.ER (FP) PO ONE (10:45)
--- NOTE | 2017-06-15 14:48 | PN ---
Progress Note (short form) - Note Progress Note: OOB to chair in NAD. No acute events overnight. No CP or SOB. Intake & Output 06/12/17 06/13/17 06/14/17 06/15/17 23:59 23:59 23:59 23:59 Intake Total 1020 910 250 570 Balance 1020 910 250 570 Weight 144 lb 119 lb 116 lb 12.8 oz Last Vital Signs Temp Pulse Resp BP Pulse Ox 97.9 F 78 20 150/85 95 06/15/17 14:40 06/15/17 14:40 06/15/17 14:40 06/15/17 14:40 06/15/17 09:00 Active Medications Acetaminophen (Tylenol -) 650 mg PO Q4H PRN PRN Reason: FEVER OR PAIN Last Admin: 06/13/17 22:10 Dose: 650 mg Atorvastatin Calcium (Lipitor -) 40 mg PO HS [facility] Last Admin: 06/14/17 21:44 Dose: 40 mg Collagenase (Santyl -) 1 applic TP DAILY [facility] Last Admin: 06/15/17 09:18 Dose: 1 applic Cyanocobalamin (Vitamin B12 -) 1,000 mcg PO DAILY [facility] Last Admin: 06/15/17 09:18 Dose: 1,000 mcg Donepezil HCl (Aricept -) 10 mg PO HS [facility] Last Admin: 06/14/17 21:44 Dose: 10 mg Furosemide (Lasix -) 40 mg PO DAILY [facility] Last Admin: 06/15/17 09:18 Dose: 40 mg Hydralazine HCl (Apresoline -) 25 mg PO BID [facility] Last Admin: 06/15/17 09:18 Dose: 25 mg Metoprolol Succinate (Toprol Xl -) 50 mg PO DAILY [facility] Last Admin: 06/15/17 09:18 Dose: 50 mg Mirtazapine (Remeron -) 15 mg PO HS [facility] Last Admin: 06/14/17 21:44 Dose: 15 mg Potassium Chloride 20 meq/ (Potassium Chloride 10 meq) 30 meq PO DAILY [facility] Constitutional: Yes: NAD, Thin Eyes: Yes: WNL HENT: Yes: WNL Neck: Yes: WNL Cardiovascular: Yes: Regular Rate and Rhythm, S1, S2 Respiratory: Yes: Few bibasilar Rales Gastrointestinal: Yes: Normal Bowel Sounds, Soft Extremities: Yes: WNL Edema: No Labs: Laboratory Results - last 24 hr 06/15/17 06/15/17 05:35 05:35 WBC 9.4 RBC 3.36 L Hgb 10.6 L Hct 31.6 L MCV 93.9 MCH 31.4 MCHC 33.4 RDW 17.9 H Plt Count 268 MPV 7.4 L Neutrophils % 80.7 Lymphocytes % 7.0 L Monocytes % 10.1 Eosinophils % 1.5 Basophils % 0.7 Sodium 140 Potassium 3.6 Chloride 104 Carbon Dioxide 30 Anion Gap 6 L BUN 18 Creatinine 0.5 L Creat Clearance w eGFR > 60 Random Glucose 83 Calcium 8.4 L Total Bilirubin 0.6 AST 8 L D ALT 14 Alkaline Phosphatase 75 Total Protein 5.6 L Albumin 2.6 L Problem List - Problems (1) CHF (congestive heart failure) Code(s): I50.9 - HEART FAILURE, UNSPECIFIED (2) Elevated troponin Code(s): R74.8 - ABNORMAL LEVELS OF OTHER SERUM ENZYMES (3) Hypoxia Code(s): R09.02 - HYPOXEMIA (4) Acute hypoxemic respiratory failure Code(s): J96.01 - ACUTE RESPIRATORY FAILURE WITH HYPOXIA (5) Hypertensive urgency Code(s): I16.0 - HYPERTENSIVE URGENCY (6) Dementia Code(s): F03.90 - UNSPECIFIED DEMENTIA WITHOUT BEHAVIORAL DISTURBANCE Assessment/Plan IMP ACUTE HYPOXEMIC RESPIRATORY FAILURE IMPROVED DECOMPENSATED CHF IMPROVING HYPERTENSIVE URGENCY IMPROVED PULMONARY HYPERTENSION +TROPONINS DEMENTIA GERD ? H/O COPD PLAN LASIX SUPPLEMENTAL O2 NEEDED DAILY [facility] [employer] MARTINEZ
[2017-06-15] MEDS: ATORVASTATIN CA 40 MG TABLET (FP) PO SCH (21:07)
[2017-06-15] MEDS: DONEPEZIL HCL 10 MG TABLET (FP) PO SCH (21:07)
[2017-06-15] MEDS: MIRTAZAPINE 15 MG TABLET (FP) PO SCH (21:07)
[2017-06-16 07:59] LABS: ANION GAP 9 (8-16); CALCIUM 8.1 mg/dL (8.5-10.1); CO2 29 mmol/L (21-32); CREATININE 0.5 mg/dL (0.55-1.02); GLUCOSE,RANDOM 89 mg/dL (74-106)
[2017-06-16] MEDS ORDERED: POTASSIUM CHLORIDE TABS 20 MEQ TABLET.ER (FP) PO ONE (09:19)
[2017-06-16] MEDS ORDERED: POTASSIUM CHLORIDE TABS 10 MEQ TABLET.ER (FP) ONE (09:20)
[2017-06-16] MEDS: COLLAGENASE CLOSTRIDIUM HIST. 30 GRAMS TUBE TP SCH (10:05)
[2017-06-16] MEDS: POTASSIUM CHLORIDE 20 MEQ, POTASSIUM CHLORIDE 10 MEQ PO SCH (10:05)
[2017-06-16] MEDS: FUROSEMIDE 40 MG TABLET (FP) PO SCH (10:05)
[2017-06-16] MEDS: hydrALAZINE HCL 25 MG TABLET (FP) PO SCH ×2 (10:05→21:52)
[2017-06-16] MEDS: CYANOCOBALAMIN 1,000 MCG TABLET (FP) PO SCH (10:05)
[2017-06-16] MEDS: METOPROLOL SUCCINATE 50 MG TAB.SR.24H (FP) PO SCH (10:05)
--- NOTE | 2017-06-16 12:43 | PN ---
Progress Note (short form) - Note Progress Note: PULMONARY Denies shortness of breath or chest pain. Saturating 94% on room air. Last Vital Signs Temp Pulse Resp BP Pulse Ox 98.2 F 85 22 152/89 92 L 06/16/17 10:00 06/16/17 10:42 06/16/17 10:00 06/16/17 10:00 06/16/17 10:42 Gen: NAD at rest Heart: RRR Lung: decreased breath sounds at the bases Abd: soft, nontender Ext: + edema CBC, BMP 06/15/17 05:35 06/16/17 05:35 Active Medications Acetaminophen (Tylenol -) 650 mg PO Q4H PRN PRN Reason: FEVER OR PAIN Last Admin: 06/13/17 22:10 Dose: 650 mg Atorvastatin Calcium (Lipitor -) 40 mg PO HS [facility] Last Admin: 06/15/17 21:07 Dose: 40 mg Collagenase (Santyl -) 1 applic TP DAILY [facility] Last Admin: 06/16/17 10:05 Dose: 1 applic Cyanocobalamin (Vitamin B12 -) 1,000 mcg PO DAILY [facility] Last Admin: 06/16/17 10:05 Dose: 1,000 mcg Donepezil HCl (Aricept -) 10 mg PO HS [facility] Last Admin: 06/15/17 21:07 Dose: 10 mg Furosemide (Lasix -) 40 mg PO DAILY [facility] Last Admin: 06/16/17 10:05 Dose: 40 mg Hydralazine HCl (Apresoline -) 25 mg PO BID [facility] Last Admin: 06/16/17 10:05 Dose: 25 mg Metoprolol Succinate (Toprol Xl -) 50 mg PO DAILY [facility] Last Admin: 06/16/17 10:05 Dose: 50 mg Mirtazapine (Remeron -) 15 mg PO HS [facility] Last Admin: 06/15/17 21:07 Dose: 15 mg Potassium Chloride 20 meq/ (Potassium Chloride 10 meq) 30 meq PO DAILY [facility] Last Admin: 06/16/17 10:05 Dose: 30 meq A/P Acute on Chronic Diastolic Heart Failure Hypertensive Urgency Pulmonary HTN +Troponins likely demand ischemia Dementia - continue lasix - monitor urine output, creatinine - inhaled bronchodilators - O2 to keep SpO2>90% - DVT prophylaxis
--- NOTE | 2017-06-16 15:08 | PN ---
Progress Note, Physician Chief Complaint: Patient appears comfortable at the time of exam. She denies chest pain, SOB or palpitation. Tele shows sinus with frequent APCs and occasional VPCs. Short runs of atrial tachycardia noted. History of Present Illness: 87 year old woman with a PMHx of HTN, HLD, COPD, Alzheimer's disease, GERD and C. Diff who was admitted on 06/11/17 with DELGADO and hypoxia. O2 sat was 79% on room air with EMS and then increased to 91% on Bipap. Her BP was noted to be elevated. CXR showed interstial lung disease with CHF. WBC 12.3. Troponin levels are positive 0.58 -> 0.14. BNP 2859. EKG NSR with a prolonged QT intervals Echocardiogram 06/11/17: Mild concentric LVH with normal LV systolic function, EF 66%. Moderate TR. RVSP 51 mmHg. Normal RV size and function - Current Medication List Current Medications: Active Medications Acetaminophen (Tylenol -) 650 mg PO Q4H PRN PRN Reason: FEVER OR PAIN Last Admin: 06/13/17 22:10 Dose: 650 mg Atorvastatin Calcium (Lipitor -) 40 mg PO HS [facility] Last Admin: 06/15/17 21:07 Dose: 40 mg Collagenase (Santyl -) 1 applic TP DAILY [facility] Last Admin: 06/16/17 10:05 Dose: 1 applic Cyanocobalamin (Vitamin B12 -) 1,000 mcg PO DAILY [facility] Last Admin: 06/16/17 10:05 Dose: 1,000 mcg Donepezil HCl (Aricept -) 10 mg PO HS [facility] Last Admin: 06/15/17 21:07 Dose: 10 mg Furosemide (Lasix -) 40 mg PO DAILY [facility] Last Admin: 06/16/17 10:05 Dose: 40 mg Hydralazine HCl (Apresoline -) 25 mg PO BID [facility] Last Admin: 06/16/17 10:05 Dose: 25 mg Metoprolol Succinate (Toprol Xl -) 50 mg PO DAILY [facility] Last Admin: 06/16/17 10:05 Dose: 50 mg Mirtazapine (Remeron -) 15 mg PO HS [facility] Last Admin: 06/15/17 21:07 Dose: 15 mg Potassium Chloride 20 meq/ (Potassium Chloride 10 meq) 30 meq PO DAILY [facility] Last Admin: 06/16/17 10:05 Dose: 30 meq - Objective Vital Signs: Vital Signs Temperature 102.4 F H 06/16/17 14:45 Pulse Rate 104 H 06/16/17 14:45 Respiratory Rate 22 06/16/17 14:45 Blood Pressure 171/99 06/16/17 14:31 O2 Sat by Pulse Oximetry (%) 92 L 06/16/17 10:42 Constitutional: Yes: No Distress, Cachectic Eyes: Yes: WNL, Conjunctiva Clear, PERRL HENT: Yes: WNL, Atraumatic, Normocephalic Neck: Yes: Supple, Trachea Midline Cardiovascular: Yes: Regular Rate and Rhythm, S1, S2 Respiratory: Yes: Regular, CTA Bilaterally Gastrointestinal: Yes: Normal Bowel Sounds, Soft ...Rectal Exam: Yes: Deferred Extremities: Yes: WNL Edema: No Labs: CBC, BMP 06/15/17 05:35 06/16/17 05:35 INR, PTT INR 1.12 (0.82-1.09) 06/11/17 04:05 Assessment/Plan 87 year old woman with a PMHx of HTN, HLD, COPD, Alzheimer's disease, GERD and C. Diff who was admitted on 06/11/17 with DELGADO and hypoxia. O2 sat was 79% on room air with EMS and then increased to 91% on Bipap. Her BP was noted to be elevated. CXR showed interstial lung disease with CHF. WBC 12.3. Troponin levels are positive 0.58 -> 0.14. BNP 2859. EKG NSR with a prolonged QT intervals Echocardiogram 06/11/17: Mild concentric LVH with normal LV systolic function, EF 66%. Moderate TR. RVSP 51 mmHg. Normal RV size and function Diastolic CHF: Acute on Chronic Dyspnea and fluid overload improved. Continue oral Lasix 40 mg daily Monitor electrolytes closely. Would replete K+ to ~ 4.0 Hypertension with frequent APCs and Occasional VPCs. May increase Metoprolol succinate to 100 mg daily for BP and heart rate control. Continue Hydralazine QTc is 510 mg, agree with pyschiatry to stop Zoloft and rispaperidal and replacing it with Remeron 15 mg QHS. This should improve the QTc on EKG. Repeat 12 lead ECG.
--- NOTE | 2017-06-16 15:30 | PN ---
Progress Note, Physician History of Present Illness: discharged cancelled, she is febrile. - Current Medication List Current Medications: Active Medications Acetaminophen (Tylenol -) 650 mg PO Q4H PRN PRN Reason: FEVER OR PAIN Last Admin: 06/13/17 22:10 Dose: 650 mg Atorvastatin Calcium (Lipitor -) 40 mg PO HS [facility] Last Admin: 06/15/17 21:07 Dose: 40 mg Collagenase (Santyl -) 1 applic TP DAILY [facility] Last Admin: 06/16/17 10:05 Dose: 1 applic Cyanocobalamin (Vitamin B12 -) 1,000 mcg PO DAILY [facility] Last Admin: 06/16/17 10:05 Dose: 1,000 mcg Donepezil HCl (Aricept -) 10 mg PO HS [facility] Last Admin: 06/15/17 21:07 Dose: 10 mg Furosemide (Lasix -) 40 mg PO DAILY [facility] Last Admin: 06/16/17 10:05 Dose: 40 mg Hydralazine HCl (Apresoline -) 25 mg PO BID [facility] Last Admin: 06/16/17 10:05 Dose: 25 mg Metoprolol Succinate (Toprol Xl -) 50 mg PO DAILY [facility] Last Admin: 06/16/17 10:05 Dose: 50 mg Mirtazapine (Remeron -) 15 mg PO HS [facility] Last Admin: 06/15/17 21:07 Dose: 15 mg Potassium Chloride 20 meq/ (Potassium Chloride 10 meq) 30 meq PO DAILY [facility] Last Admin: 06/16/17 10:05 Dose: 30 meq - Objective Vital Signs: Vital Signs Temperature 102.4 F H 06/16/17 14:45 Pulse Rate 104 H 06/16/17 14:45 Respiratory Rate 22 06/16/17 14:45 Blood Pressure 171/99 06/16/17 14:31 O2 Sat by Pulse Oximetry (%) 92 L 06/16/17 10:42 Constitutional: Yes: Well Nourished, No Distress, Calm Cardiovascular: Yes: Regular Rate and Rhythm Respiratory: Yes: Regular Gastrointestinal: Yes: Normal Bowel Sounds Labs: CBC, BMP 06/15/17 05:35 06/16/17 05:35 INR, PTT INR 1.12 (0.82-1.09) 06/11/17 04:05 Problem List - Problems (1) Dementia Assessment/Plan: on Donepezil and mirtazapine Code(s): F03.90 - UNSPECIFIED DEMENTIA WITHOUT BEHAVIORAL DISTURBANCE (2) Sepsis Assessment/Plan: repeat BC, UC labs today CXR ID to see the patient again Code(s): A41.9 - SEPSIS, UNSPECIFIED ORGANISM (3) Acute hypoxemic respiratory failure Assessment/Plan: secondary to CHF, resolved Code(s): J96.01 - ACUTE RESPIRATORY FAILURE WITH HYPOXIA (4) CHF (congestive heart failure) Code(s): I50.9 - HEART FAILURE, UNSPECIFIED (5) Hypokalemia Assessment/Plan: normalized, continue to monitor repeat labs today Code(s): E87.6 - HYPOKALEMIA Assessment/Plan cancel discharge, pt febrile repeat labs, BC, UC tylenol for fever over 100.0F ID re-evaluation CXR
[2017-06-16] MEDS: ACETAMINOPHEN 325 MG TABLET (FP) PO PRN (15:43)
[2017-06-16 16:21] LABS: BASOPHIL 0.3 % (0-2.0); EOSINOPHIL 0.4 % (0-4.5); MCH 31.2 pg (25.7-33.7); MCHC 33.5 g/dl (32.0-36.0); MEAN CELL VOLUME 92.9 fl (80-96); MEAN PLT VOLUME 7.5 fl (7.5-11.1); NEUTROPHILS 83.8 % (42.8-82.8); PLATELET COUNT 331 K/MM3 (134-434); RDW 17.4 % (11.6-15.6); WHITE BLOOD COUNT 11.5 K/mm3 (4.0-10.0)
[2017-06-16 16:51] LABS: ALBUMIN 3.1 g/dl (3.4-5.0); ALK PHOS 96 U/L (45-117); ANION GAP 11 (8-16); BILIRUBIN,TOTAL 0.9 mg/dL (0.2-1.0); CALCIUM 8.3 mg/dL (8.5-10.1); CO2 27 mmol/L (21-32); CREATININE 0.5 mg/dL (0.55-1.02); GLUCOSE,RANDOM 83 mg/dL (74-106); SGOT/AST 14 U/L (15-37); SGPT/ALT 16 U/L (12-78); TOT PROT 6.7 g/dl (6.4-8.2)
[2017-06-16] MEDS ORDERED: cefTRIAXone 1 GM/50 ML BAG (PRE-DOCKED) IVPB ONE ×2 (19:15→21:45)
[2017-06-16 19:57] LABS: URINE APPEARANCE SLCLOUDY; URINE BILIRUBIN NEGATIVE (NEGATIVE); URINE BLOOD NEGATIVE (NEGATIVE); URINE COLOR LTYELLOW; URINE GLUCOSE (UA) NEGATIVE (NEGATIVE); URINE KETONE NEGATIVE (NEGATIVE); URINE LEUK ESTERASE 2+ (NEGATIVE); URINE NITRITE NEGATIVE (NEGATIVE); URINE PROTEIN NEGATIVE (NEGATIVE); URINE UROBILINOGEN NEGATIVE mg/dL (0.2-1.0)
[2017-06-16 19:59] LABS: URINE BACTERIA RARE /hpf (NONE SEEN); URINE RBC <1 /hpf (0-3); URINE WBC 46 /hpf (3-5)
[2017-06-16] MEDS: MIRTAZAPINE 15 MG TABLET (FP) PO SCH (21:52)
[2017-06-16] MEDS: ATORVASTATIN CA 40 MG TABLET (FP) PO SCH (21:52)
[2017-06-16] MEDS: DONEPEZIL HCL 10 MG TABLET (FP) PO SCH (21:52)
--- NOTE | 2017-06-17 08:34 | PN ---
Progress Note, Physician - Current Medication List Current Medications: Active Medications Acetaminophen (Tylenol -) 650 mg PO Q4H PRN PRN Reason: FEVER OR PAIN Last Admin: 06/16/17 15:43 Dose: 650 mg Atorvastatin Calcium (Lipitor -) 40 mg PO HS [facility] Last Admin: 06/16/17 21:52 Dose: 40 mg Collagenase (Santyl -) 1 applic TP DAILY [facility] Last Admin: 06/16/17 10:05 Dose: 1 applic Cyanocobalamin (Vitamin B12 -) 1,000 mcg PO DAILY [facility] Last Admin: 06/16/17 10:05 Dose: 1,000 mcg Donepezil HCl (Aricept -) 10 mg PO HS [facility] Last Admin: 06/16/17 21:52 Dose: 10 mg Furosemide (Lasix -) 40 mg PO DAILY [facility] Last Admin: 06/16/17 10:05 Dose: 40 mg Hydralazine HCl (Apresoline -) 25 mg PO BID [facility] Last Admin: 06/16/17 21:52 Dose: 25 mg Metoprolol Succinate (Toprol Xl -) 50 mg PO DAILY [facility] Last Admin: 06/16/17 10:05 Dose: 50 mg Mirtazapine (Remeron -) 15 mg PO HS [facility] Last Admin: 06/16/17 21:52 Dose: 15 mg Potassium Chloride 20 meq/ (Potassium Chloride 10 meq) 30 meq PO DAILY [facility] Last Admin: 06/16/17 10:05 Dose: 30 meq - Objective Vital Signs: Vital Signs Temperature 98 F 06/17/17 05:43 Pulse Rate 78 06/17/17 05:43 Respiratory Rate 20 06/17/17 05:43 Blood Pressure 130/70 06/17/17 05:43 O2 Sat by Pulse Oximetry (%) 94 L 06/16/17 20:46 Cardiovascular: Yes: Regular Rate and Rhythm Respiratory: Yes: Regular, CTA Bilaterally Gastrointestinal: Yes: Normal Bowel Sounds, Soft. No: Tenderness Labs: CBC, BMP 06/16/17 15:45 06/16/17 15:45 INR, PTT INR 1.12 (0.82-1.09) 06/11/17 04:05 Problem List - Problems (1) Elevated troponin Code(s): R74.8 - ABNORMAL LEVELS OF OTHER SERUM ENZYMES (2) Hypoxia Code(s): R09.02 - HYPOXEMIA (3) CHF (congestive heart failure) Code(s): I50.9 - HEART FAILURE, UNSPECIFIED (4) Leukocytosis Code(s): D72.829 - ELEVATED WHITE BLOOD CELL COUNT, UNSPECIFIED Assessment/Plan - Problems (1) Dementia Assessment/Plan: on Donepezil and mirtazapine Code(s): F03.90 - UNSPECIFIED DEMENTIA WITHOUT BEHAVIORAL DISTURBANCE (2) Sepsis Assessment/Plan: repeat BC, UC labs today CXR-IMPROVED D/W ID --WILL NEED ABX FOR UTI AND PO VANCO DUE TO RECENT CDIF Code(s): A41.9 - SEPSIS, UNSPECIFIED ORGANISM (3) Acute hypoxemic respiratory failure Assessment/Plan: secondary to CHF, resolved Code(s): J96.01 - ACUTE RESPIRATORY FAILURE WITH HYPOXIA (4) CHF (congestive heart failure) Code(s): I50.9 - HEART FAILURE, UNSPECIFIED (5) Hypokalemia Assessment/Plan: normalized, continue to monitor repeat labs today Code(s): E87.6 - HYPOKALEMIA Assessment/Plan repeat labs, BC, UC tylenol for fever over 100.0F ID re-evaluation
[2017-06-17] MEDS ORDERED: POTASSIUM CHLORIDE TABS 20 MEQ TABLET.ER (FP) PO ONE (09:14)
[2017-06-17] MEDS ORDERED: POTASSIUM CHLORIDE TABS 10 MEQ TABLET.ER (FP) ONE (09:15)
[2017-06-17] MEDS: METOPROLOL SUCCINATE 50 MG TAB.SR.24H (FP) PO SCH (09:19)
[2017-06-17] MEDS: CYANOCOBALAMIN 1,000 MCG TABLET (FP) PO SCH (09:19)
[2017-06-17] MEDS: hydrALAZINE HCL 25 MG TABLET (FP) PO SCH ×2 (09:19→21:25)
[2017-06-17] MEDS: POTASSIUM CHLORIDE 20 MEQ, POTASSIUM CHLORIDE 10 MEQ PO SCH (09:19)
[2017-06-17] MEDS: FUROSEMIDE 40 MG TABLET (FP) PO SCH (09:20)
--- NOTE | 2017-06-17 09:25 | PN ---
Progress Note (short form) - Note Progress Note: febrile to 102 yesterday denies rigors or chills felt warm no diarrhea no dysuria Vital Signs Period Temp Pulse Resp BP Sys/Amador Pulse Ox Last 24 Hr 98 F-102.4 F 77-104 18-22 130-171/70-99 92-94 cor-rrr lungs few crackles at bases abd soft,nt ext no edema CBC, BMP 06/16/17 15:45 06/16/17 15:45 cultures pending Microbiology 06/11/17 05:00 Blood - Peripheral Venous Blood Culture - Final NO GROWTH AFTER 5 DAYS INCUBATION 06/11/17 05:50 Blood - Peripheral Venous Blood Culture - Final NO GROWTH AFTER 5 DAYS INCUBATION 06/11/17 06:40 Urine - Urine Clean Catch Urine Culture - Final Proteus Mirabilis imp/reccd fever- pyuria given one dose rocephin yesterday will continue f/u cultures add po vancomycin given recent history of cdiff add probiotics d/w Dr Ferguson Problem List - Problems (1) Acute hypoxemic respiratory failure Code(s): J96.01 - ACUTE RESPIRATORY FAILURE WITH HYPOXIA (2) CHF (congestive heart failure) Code(s): I50.9 - HEART FAILURE, UNSPECIFIED (3) Hypertensive urgency Code(s): I16.0 - HYPERTENSIVE URGENCY (4) Elevated troponin Code(s): R74.8 - ABNORMAL LEVELS OF OTHER SERUM ENZYMES
[2017-06-17 09:34] LABS: BASOPHIL 0.6 % (0-2.0); EOSINOPHIL 0.9 % (0-4.5); MCH 31.6 pg (25.7-33.7); MEAN CELL VOLUME 93.1 fl (80-96); MEAN PLT VOLUME 7.5 fl (7.5-11.1); NEUTROPHILS 83.7 % (42.8-82.8); PLATELET COUNT 300 K/MM3 (134-434); RDW 17.2 % (11.6-15.6); WHITE BLOOD COUNT 9.8 K/mm3 (4.0-10.0)
[2017-06-17] MEDS: LACTOBACILLUS ACIDOPHILUS 1 EACH TAB (FP) PO SCH ×2 (10:11→21:25)
[2017-06-17] MEDS: cefTRIAXone 1 GM/50 ML BAG (PRE-DOCKED) IVPB SCH (10:11)
[2017-06-17] MEDS: VANCOMYCIN 250 MG/5 ML ORAL SOLUTION PO SCH ×2 (12:37→17:15)
--- NOTE | 2017-06-17 13:28 | PN ---
Progress Note (short form) - Note Progress Note: PULMONARY Denies shortness of breath or chest pain. No cough or wheezing. Last Vital Signs Temp Pulse Resp BP Pulse Ox 98 F 94 H 18 140/78 94 L 06/17/17 09:59 06/17/17 09:59 06/17/17 09:59 06/17/17 09:59 06/16/17 20:46 Gen: NAD at rest Heart: RRR Lung: decreased breath sounds at the bases Abd: soft, nontender Ext: no edema CBC, BMP 06/17/17 09:28 06/16/17 15:45 Active Medications Acetaminophen (Tylenol -) 650 mg PO Q4H PRN PRN Reason: FEVER OR PAIN Last Admin: 06/16/17 15:43 Dose: 650 mg Atorvastatin Calcium (Lipitor -) 40 mg PO HS [facility] Last Admin: 06/16/17 21:52 Dose: 40 mg Ceftriaxone Sodium (Rocephin 1gm Ivpb (Pre-Docked)) 1 gm IVPB DAILY [facility] PRN Reason: Protocol Last Admin: 06/17/17 10:11 Dose: 1 gm Collagenase (Santyl -) 1 applic TP DAILY [facility] Last Admin: 06/16/17 10:05 Dose: 1 applic Cyanocobalamin (Vitamin B12 -) 1,000 mcg PO DAILY [facility] Last Admin: 06/17/17 09:19 Dose: 1,000 mcg Donepezil HCl (Aricept -) 10 mg PO HS [facility] Last Admin: 06/16/17 21:52 Dose: 10 mg Furosemide (Lasix -) 40 mg PO DAILY [facility] Last Admin: 06/17/17 09:20 Dose: 40 mg Hydralazine HCl (Apresoline -) 25 mg PO BID [facility] Last Admin: 06/17/17 09:19 Dose: 25 mg Lactobacillus Acidophilus (Bacid -) 1 tab PO BID [facility] Last Admin: 06/17/17 10:11 Dose: 1 tab Metoprolol Succinate (Toprol Xl -) 50 mg PO DAILY [facility] Last Admin: 06/17/17 09:19 Dose: 50 mg Mirtazapine (Remeron -) 15 mg PO HS [facility] Last Admin: 06/16/17 21:52 Dose: 15 mg Potassium Chloride 20 meq/ (Potassium Chloride 10 meq) 30 meq PO DAILY [facility] Last Admin: 06/17/17 09:19 Dose: 30 meq Vancomycin HCl (Vancomycin Oral Solution) 125 mg PO Q6HPO [facility] Last Admin: 06/17/17 12:37 Dose: 125 mg A/P Acute on Chronic Diastolic Heart Failure Hypertensive Urgency Pulmonary HTN +Troponins likely demand ischemia Dementia - continue lasix - monitor urine output, creatinine - inhaled bronchodilators - O2 to keep SpO2>90% - DVT prophylaxis
--- NOTE | 2017-06-17 13:48 | PN ---
Progress Note, Physician Chief Complaint: Patient appears comfortable at the time of exam. She denies chest pain, SOB or palpitation. Tele shows sinus with rare APCs and VPCs. History of Present Illness: 87 year old woman with a PMHx of HTN, HLD, COPD, Alzheimer's disease, GERD and C. Diff who was admitted on 06/11/17 with DELGADO and hypoxia. O2 sat was 79% on room air with EMS and then increased to 91% on Bipap. Her BP was noted to be elevated. CXR showed interstial lung disease with CHF. WBC 12.3. Troponin levels are positive 0.58 -> 0.14. BNP 2859. EKG NSR with a prolonged QT intervals Echocardiogram 06/11/17: Mild concentric LVH with normal LV systolic function, EF 66%. Moderate TR. RVSP 51 mmHg. Normal RV size and function - Current Medication List Current Medications: Active Medications Acetaminophen (Tylenol -) 650 mg PO Q4H PRN PRN Reason: FEVER OR PAIN Last Admin: 06/16/17 15:43 Dose: 650 mg Atorvastatin Calcium (Lipitor -) 40 mg PO HS [facility] Last Admin: 06/16/17 21:52 Dose: 40 mg Ceftriaxone Sodium (Rocephin 1gm Ivpb (Pre-Docked)) 1 gm IVPB DAILY [facility] PRN Reason: Protocol Last Admin: 06/17/17 10:11 Dose: 1 gm Collagenase (Santyl -) 1 applic TP DAILY [facility] Last Admin: 06/16/17 10:05 Dose: 1 applic Cyanocobalamin (Vitamin B12 -) 1,000 mcg PO DAILY [facility] Last Admin: 06/17/17 09:19 Dose: 1,000 mcg Donepezil HCl (Aricept -) 10 mg PO HS [facility] Last Admin: 06/16/17 21:52 Dose: 10 mg Furosemide (Lasix -) 40 mg PO DAILY [facility] Last Admin: 06/17/17 09:20 Dose: 40 mg Hydralazine HCl (Apresoline -) 25 mg PO BID [facility] Last Admin: 06/17/17 09:19 Dose: 25 mg Lactobacillus Acidophilus (Bacid -) 1 tab PO BID [facility] Last Admin: 06/17/17 10:11 Dose: 1 tab Metoprolol Succinate (Toprol Xl -) 50 mg PO DAILY [facility] Last Admin: 06/17/17 09:19 Dose: 50 mg Mirtazapine (Remeron -) 15 mg PO HS [facility] Last Admin: 06/16/17 21:52 Dose: 15 mg Potassium Chloride 20 meq/ (Potassium Chloride 10 meq) 30 meq PO DAILY [facility] Last Admin: 06/17/17 09:19 Dose: 30 meq Vancomycin HCl (Vancomycin Oral Solution) 125 mg PO Q6HPO [facility] Last Admin: 06/17/17 12:37 Dose: 125 mg - Objective Vital Signs: Vital Signs Temperature 98 F 06/17/17 09:59 Pulse Rate 94 H 06/17/17 09:59 Respiratory Rate 18 06/17/17 09:59 Blood Pressure 140/78 06/17/17 09:59 O2 Sat by Pulse Oximetry (%) 94 L 06/16/17 20:46 Constitutional: Yes: No Distress, Cachectic Eyes: Yes: WNL HENT: Yes: Atraumatic, Normocephalic Neck: Yes: Supple, Trachea Midline Cardiovascular: Yes: Regular Rate and Rhythm, S1, S2 Respiratory: Yes: Regular, CTA Bilaterally Gastrointestinal: Yes: Normal Bowel Sounds, Soft ...Rectal Exam: Yes: Deferred Edema: No Peripheral Pulses WNL: Yes Labs: CBC, BMP 06/17/17 09:28 06/16/17 15:45 INR, PTT INR 1.12 (0.82-1.09) 06/11/17 04:05 Assessment/Plan 87 year old woman with a PMHx of HTN, HLD, COPD, Alzheimer's disease, GERD and C. Diff who was admitted on 06/11/17 with DELGADO and hypoxia. O2 sat was 79% on room air with EMS and then increased to 91% on Bipap. Her BP was noted to be elevated. CXR showed interstial lung disease with CHF. WBC 12.3. Troponin levels are positive 0.58 -> 0.14. BNP 2859. EKG NSR with a prolonged QT intervals Echocardiogram 06/11/17: Mild concentric LVH with normal LV systolic function, EF 66%. Moderate TR. RVSP 51 mmHg. Normal RV size and function Diastolic CHF: Acute on Chronic Dyspnea and fluid overload improved. Continue oral Lasix 40 mg daily Monitor electrolytes closely. Hypertension with frequent APCs and Occasional VPCs. May increase Metoprolol succinate to 100 mg daily for BP and heart rate control. Continue Hydralazine QTc is 510 mg, agree with babatundeiatry to stop Zoloft and rispaperidal and replacing it with Remeron 15 mg QHS. This should improve the QTc on EKG. Repeat 12 lead ECG.
[2017-06-17] MEDS: COLLAGENASE CLOSTRIDIUM HIST. 30 GRAMS TUBE TP SCH (14:19)
[2017-06-17] MEDS: DONEPEZIL HCL 10 MG TABLET (FP) PO SCH (21:25)
[2017-06-17] MEDS: ATORVASTATIN CA 40 MG TABLET (FP) PO SCH (21:25)
[2017-06-17] MEDS: MIRTAZAPINE 15 MG TABLET (FP) PO SCH (21:26)
[2017-06-18] MEDS: VANCOMYCIN 250 MG/5 ML ORAL SOLUTION PO SCH ×3 (00:50→12:05)
[2017-06-18 06:15] VITALS: PULSE 79
--- NOTE | 2017-06-18 07:44 | DS ---
Physical Examination Vital Signs: Vital Signs Temperature 98.4 F 06/18/17 06:00 Pulse Rate 79 06/18/17 06:00 Respiratory Rate 18 06/18/17 06:00 Blood Pressure 145/88 06/18/17 06:00 O2 Sat by Pulse Oximetry (%) 94 L 06/17/17 20:53 Cardiovascular: Yes: Regular Rate and Rhythm Respiratory: Yes: Regular, CTA Bilaterally Gastrointestinal: Yes: Normal Bowel Sounds, Soft Labs: CBC, BMP 06/17/17 09:28 06/16/17 15:45 Discharge Summary Reason For Visit: SEPSIS,ELEVATED TROPONIN,HYPOXIA Current Active Problems Acute hypoxemic respiratory failure (Acute) CHF (congestive heart failure) (Acute) Dementia (Acute) Elevated troponin (Acute) Hypertensive urgency (Acute) Hypokalemia (Acute) Hypoxia (Acute) Leukocytosis (Acute) Sepsis (Acute) Hospital Course: History of Present Illness: 87 yo F with hx of HTN, HLD, COPD, Alzheimer's, hypokalemia, GERD, C. Diff, and depression BIBEMS to ED with shortness of breath. Patient is unable to give a complete history and states "I don't know what happened" but does report being short of breath and denies any pain to chest or elsewhere. Per EMS patient had acute onset shortness of breath and O2 sat was 79% on EMS arrival and increased to 91% on bipap. Per EMS patient's BP was also elevated to 190s/100s on arrival. Patient was given 1 tab SL nitro in the field. - Past Medical History IN [employer]: Yes: Alzheimer's, Dementia Cardiovascular: Yes: Hyperlipdemia Pulmonary: Yes: COPD Gastrointestinal: Yes: GERD Infectious Disease: Yes: C-Diff - Problems (1) Dementia Assessment/Plan: on Donepezil and mirtazapine Code(s): F03.90 - UNSPECIFIED DEMENTIA WITHOUT BEHAVIORAL DISTURBANCE (2) Sepsis Assessment/Plan: repeat BC, UC pending continue with rocephin and vanco---D/W ID --WILL NEED ABX FOR UTI AND PO VANCO DUE TO RECENT CDIF CXR-IMPROVED Code(s): A41.9 - SEPSIS, UNSPECIFIED ORGANISM (3) Acute hypoxemic respiratory failure Assessment/Plan: secondary to CHF, resolved Code(s): J96.01 - ACUTE RESPIRATORY FAILURE WITH HYPOXIA (4) CHF (congestive heart failure) Code(s): I50.9 - HEART FAILURE, UNSPECIFIED (5) Hypokalemia Assessment/Plan: normalized, continue to monitor repeat labs today Code(s): E87.6 - HYPOKALEMIA DC TO SNF TODAY--FOLLOW UP [facility]S [facility] - Instructions Diet, Activity, Other Instructions: Continue Furosemide 40 mg po daily added mirtazapine 15 mg po HS KCl 30 meq PO daily Check CBC, CMP, BNP in 1 week Referrals: Nazanin Ferguson MD [Primary Care Provider] - Disposition: CUSTODIAL FACILITY - Home Medications Comprehensive Discharge Medication List: Ambulatory Orders Atorvastatin Ca [Lipitor] 40 mg PO HS 06/11/17 Cyanocobalamin [Vitamin B12 -] 1,000 mcg PO DAILY 06/11/17 Donepezil HCl [Aricept -] 10 mg PO DAILY 06/11/17 Hydralazine HCl [Apresoline -] 25 mg PO BID 06/11/17 Clinton-3S/Dha/Epa/Fish Oil [Clinton-3 Fish Oil 1,000 mg Sfgl] 1 each PO BID Acetaminophen [Tylenol .Regular Strength -] 650 mg PO Q4H PRN #0 tablet Collagenase Clostridium Hist. [Santyl -] 1 applic TP DAILY tube 06/16/17 Furosemide [Lasix -] 40 mg PO DAILY tablet 06/16/17 Mirtazapine [Remeron -] 15 mg PO HS tablet 06/16/17 Potassium Chloride [K-Dur -] 30 meq PO DAILY tab 06/16/17 Ceftriaxone [Rocephin 1Gm Ivpb (Pre-Docked)] 1 gm IVPB DAILY bag 06/18/17 Metoprolol Succinate [Toprol XL -] 100 mg PO DAILY #30 tab.sr.24h 06/18/17 Vancomycin Oral Solution 125 mg PO Q6HPO ml 06/18/17
[2017-06-18] MEDS ORDERED: METOPROLOL SUCCINATE 100 MG TAB.SR.24H (FP) PO SCH (10:00)
[2017-06-18 10:26] VITALS: BP 128/76; TEMP 98.5
[2017-06-18] MEDS ORDERED: POTASSIUM CHLORIDE TABS 20 MEQ TABLET.ER (FP) PO ONE (11:55)
[2017-06-18] MEDS ORDERED: POTASSIUM CHLORIDE TABS 10 MEQ TABLET.ER (FP) ONE (11:55)
[2017-06-18] MEDS: POTASSIUM CHLORIDE 20 MEQ, POTASSIUM CHLORIDE 10 MEQ PO SCH (12:04)
[2017-06-18] MEDS: COLLAGENASE CLOSTRIDIUM HIST. 30 GRAMS TUBE TP SCH (12:04)
[2017-06-18] MEDS: CYANOCOBALAMIN 1,000 MCG TABLET (FP) PO SCH (12:05)
[2017-06-18] MEDS: LACTOBACILLUS ACIDOPHILUS 1 EACH TAB (FP) PO SCH (12:05)
[2017-06-18] MEDS: FUROSEMIDE 40 MG TABLET (FP) PO SCH (12:05)
[2017-06-18] MEDS: hydrALAZINE HCL 25 MG TABLET (FP) PO SCH (12:05)
[2017-06-18] MEDS ORDERED: CEFTRIAXONE 1 GM in DEXTROSE 5%-WATER - 50 ML IVPB SCH (12:15)
[2017-06-18] MEDS ORDERED: cefTRIAXone SODIUM 1 GM VIAL ONE (12:30)
[2017-06-18] MEDS ORDERED: DEXTROSE 5%-WATER - 50 ML IVPB ONE (12:30)
--- NOTE | 2017-06-18 12:38 | PN ---
Progress Note (short form) - Note Progress Note: febrile to 102 yesterday no further fevers feels well no diarrhea no dysuria Vital Signs Period Temp Pulse Resp BP Sys/Amador Pulse Ox Last 24 Hr 97.6 F-99.4 F 76-83 16-18 128-149/64-88 94-96 cor-rrr lungs clear abd soft,nt ext no edema CBC, BMP 06/17/17 09:28 06/16/17 15:45 Microbiology 06/16/17 19:35 Urine - Urine - Catheterized Urine Culture - Preliminary Group D Strep Or Entero Coccus 06/16/17 15:45 Blood - Peripheral Venous Blood Culture - Preliminary NO GROWTH OBTAINED AFTER 24 HOURS, INCUBATION TO CONTINUE FOR 4 DAYS. 06/16/17 15:50 Blood - Peripheral Venous Blood Culture - Preliminary NO GROWTH OBTAINED AFTER 24 HOURS, INCUBATION TO CONTINUE FOR 4 DAYS. 06/11/17 05:00 Blood - Peripheral Venous Blood Culture - Final NO GROWTH AFTER 5 DAYS INCUBATION 06/11/17 05:50 Blood - Peripheral Venous Blood Culture - Final NO GROWTH AFTER 5 DAYS INCUBATION 06/11/17 06:40 Urine - Urine Clean Catch Urine Culture - Final Proteus Mirabilis Current Medications Acetaminophen (Tylenol -) 650 mg PO Q4H PRN PRN Reason: FEVER OR PAIN Last Admin: 06/16/17 15:43 Dose: 650 mg Atorvastatin Calcium (Lipitor -) 40 mg PO HS [facility] Last Admin: 06/17/17 21:25 Dose: 40 mg Collagenase (Santyl -) 1 applic TP DAILY [facility] Last Admin: 06/18/17 12:04 Dose: 1 applic Cyanocobalamin (Vitamin B12 -) 1,000 mcg PO DAILY [facility] Last Admin: 06/18/17 12:05 Dose: 1,000 mcg Donepezil HCl (Aricept -) 10 mg PO HS [facility] Last Admin: 06/17/17 21:25 Dose: 10 mg Furosemide (Lasix -) 40 mg PO DAILY [facility] Last Admin: 06/18/17 12:05 Dose: 40 mg Hydralazine HCl (Apresoline -) 25 mg PO BID [facility] Last Admin: 06/18/17 12:05 Dose: 25 mg Ceftriaxone Sodium 1 gm/ (Dextrose) 50 mls @ 100 mls/hr IVPB DAILY [facility] Lactobacillus Acidophilus (Bacid -) 1 tab PO BID [facility] Last Admin: 06/18/17 12:05 Dose: 1 tab Metoprolol Succinate (Toprol Xl -) 100 mg PO DAILY [facility] Last Admin: 06/18/17 12:05 Dose: 100 mg Mirtazapine (Remeron -) 15 mg PO HS [facility] Last Admin: 06/17/17 21:26 Dose: 15 mg Potassium Chloride 20 meq/ (Potassium Chloride 10 meq) 30 meq PO DAILY [facility] Last Admin: 06/18/17 12:04 Dose: 30 meq Vancomycin HCl (Vancomycin Oral Solution) 125 mg PO Q6HPO [facility] Last Admin: 06/18/17 12:05 Dose: 125 mg imp/reccd fever- pyuria on rocephin urine culture with low colony count 20-30k enterococcus- no need to treat blood cultures remain negative would d/c rocephin complete one week po vancomycin for recent severe cdiff (currently asymptomatic but challenged by antiibotics in the hospital, continue probiotics) Problem List - Problems (1) Acute hypoxemic respiratory failure Code(s): J96.01 - ACUTE RESPIRATORY FAILURE WITH HYPOXIA (2) CHF (congestive heart failure) Code(s): I50.9 - HEART FAILURE, UNSPECIFIED (3) Hypertensive urgency Code(s): I16.0 - HYPERTENSIVE URGENCY (4) Elevated troponin Code(s): R74.8 - ABNORMAL LEVELS OF OTHER SERUM ENZYMES
[2017-06-18] MEDS: cefTRIAXone 1 GM/50 ML BAG (PRE-DOCKED) IVPB SCH (13:35)
== END 2017-06-18 12:54 | DRG 291 ==
LOC: JER 03:52 → JERBED 08:01 → J4W 10:37 → J7W 06-17 15:26
PROVIDERS: ADMIT Family Medicine; ATTEND Family Medicine
DX: I11.0 Hypertensive heart disease with heart failure (principal); J96.01 Acute respiratory failure with hypoxia; I50.33 Acute on chronic diastolic (congestive) heart failure; E87.6 Hypokalemia; D72.829 Elevated white blood cell count, unspecified; E78.5 Hyperlipidemia, unspecified; K21.9 Gastro-esophageal reflux disease without esophagitis; G30.9 Alzheimer's disease, unspecified; F02.80 Dementia in other diseases classified elsewhere, unspecified severity, without behavioral disturbance, psychotic disturbance, mood disturbance, and anxiety; I27.2 Other secondary pulmonary hypertension
CPT/HCPCS: 36415; 36600; 71010-TC; 80048; 80053; 81003; 81015; 82803; 83036; 83605; 83735; 83880; 84484; 85025; 85610; 85730; 86850; 86900; 86901; 87040; 87086; 87186; 93005; 93010; 93306-TC; 94660; 97161-GP; 99285-25

== ENCOUNTER 2017-06-18 17:54 | Emergency (ER) | payer OTHER ==
[2017-06-18 18:12] VITALS: BP 135/84; PULSE 78; TEMP 98; BMI 23.6
--- NOTE | 2017-06-18 18:59 | PDOC ---
History of Present Illness - General Chief Complaint: Injury Stated Complaint: FALL Time Seen by Provider: 06/18/17 18:54 History Source: Patient, Family (Daughter), Primary Care Provider (Nurse (Anel ) at [facility]) - History of Present Illness Initial Comments: 06/18/17 18:56 Patient is an 87 year old female with history of HTN, HLD, COPD, Alzheimer's, hypokalemia, GERD, C. Diff, and depression who [facility] and [facility] her head. According to the nurse at [facility] the patient was found down in her room and complaining of hitting her head. Fall was unwitnessed and patient is a poor historian who claims she was out walking when she tripped and fell. According to daughter, Jessica, patient has a history of crawling out of bed and being found on the ground. Patient endorses pain to the forehead when it is pressed but denies loss of consciousness, headache, dizziness, vision changes, neck pain, back pain and hip pain. Past History - Past Medical History Allergies/Adverse Reactions: Allergies Allergy/AdvReac Type Severity Reaction Status Date / Time No Known Allergies Allergy Verified 06/18/17 18:12 Home Medications: Ambulatory Orders Atorvastatin Ca [Lipitor] 40 mg PO HS 06/11/17 Cyanocobalamin [Vitamin B12 -] 1,000 mcg PO DAILY 06/11/17 Donepezil HCl [Aricept -] 10 mg PO HS 06/11/17 Hydralazine HCl [Apresoline -] 25 mg PO BID 06/11/17 [place]-3S/Dha/Epa/Fish Oil [[place]-3 Fish Oil 1,000 mg Sfgl] 1 each PO BID Acetaminophen [Tylenol .Regular Strength -] 650 mg PO Q4H PRN #0 tablet Collagenase Clostridium Hist. [Santyl -] 1 applic TP DAILY tube 06/16/17 Donepezil HCl [Aricept -] 10 mg PO DAILY 06/18/17 Metoprolol Succinate [Toprol XL -] 50 mg PO DAILY 06/18/17 Potassium Chloride [K-Dur -] 20 meq PO DAILY 06/18/17 Risperidone 0.5 mg PO HS 06/18/17 Sertraline HCl [Zoloft] 25 mg PO DAILY 06/18/17 Anemia: Yes (vit b12 deficiency) COPD: Yes Dementia: Yes GI Disorders: Yes Disorders: Yes (uti) HTN: Yes Hypercholesterolemia: Yes Psychiatric Problems: Yes (depression) - Immunization History Immunization Up to Date: Yes - Psycho/Social/Smoking Cessation Hx Anxiety: No Suicidal Ideation: No Smoking History: Never smoked Have you smoked in the past 12 months: No Information on smoking cessation initiated: No Hx Alcohol Use: No Drug/Substance Use Hx: No Substance Use Type: None Review of Systems - Review of Systems Able to Perform ROS?: Yes Is the patient limited Vietnamese proficient: No Constitutional: No: Chills, Fever HEENTM: No: Recent change in vision, Double Vision, Ear Pain, Nose Pain, Throat Pain Respiratory: No: Shortness of Breath Cardiac (ROS): No: Chest Pain, Lightheadedness, Syncope ABD/GI: No: Constipated, Diarrhea, Nausea, Vomiting Musculoskeletal: Yes: Other (no hip pain). No: Back Pain, Neck Pain Neurological: No: Headache, Weakness, Dizziness *Physical Exam - Vital Signs Last Vital Signs Temp Pulse Resp BP Pulse Ox 98 F 78 18 135/84 98 06/18/17 17:54 06/18/17 17:54 06/18/17 17:54 06/18/17 17:54 06/18/17 17:54 - Physical Exam General Appearance: Yes: Nourished, Appropriately Dressed HEENT: positive: EOMI, CANDY, Normal ENT Inspection (TM intact, no blood in canal , no warner signs, no recoon eyes, no nasal dicharge), Other (3/3cm abrasion to left frontal eminence at hairline, mild erythema, no enema) Neck: positive: Other (No midline cervical tenderness, good range of motion, non tender) Respiratory/Chest: positive: Lungs Clear. negative: Respiratory Distress Cardiovascular: positive: Regular Rhythm, Regular Rate. 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 06/18/17 21:43 CT shows no acute intracranial pathology CBC WBC 9.4 K/mm3 (4.0-10.0) 06/18/17 20:10 RBC 3.55 M/mm3 (3.60-5.2) L 06/18/17 20:10 Hgb 11.4 GM/dL (10.7-15.3) 06/18/17 20:10 Hct 33.1 % (32.4-45.2) 06/18/17 20:10 MCV 93.3 fl (80-96) 06/18/17 20:10 MCH 32.0 pg (25.7-33.7) 06/18/17 20:10 MCHC 34.3 g/dl (32.0-36.0) 06/18/17 20:10 RDW 16.9 % (11.6-15.6) H 06/18/17 20:10 Plt Count 314 K/MM3 (134-434) 06/18/17 20:10 MPV 8.2 fl (7.5-11.1) 06/18/17 20:10 Neutrophils % 82.6 % (42.8-82.8) 06/18/17 20:10 Lymphocytes % 5.6 % (8-40) L 06/18/17 20:10 Monocytes % 9.3 % (3.8-10.2) 06/18/17 20:10 Eosinophils % 1.9 % (0-4.5) D 06/18/17 20:10 Basophils % 0.6 % (0-2.0) 06/18/17 20:10 Grossly within normal limits CMP Sodium 139 mmol/L (136-145) 06/18/17 20:10 Potassium 4.1 mmol/L (3.5-5.1) 06/18/17 20:10 Chloride 104 mmol/L (98-107) 06/18/17 20:10 Carbon Dioxide 26 mmol/L (21-32) 06/18/17 20:10 Anion Gap 9 (8-16) 06/18/17 20:10 BUN 22 mg/dL (7-18) H D 06/18/17 20:10 Creatinine 0.5 mg/dL (0.55-1.02) L 06/18/17 20:10 Creat Clearance w eGFR > 60 (>60) 06/18/17 20:10 Random Glucose 112 mg/dL (74-106) H D 06/18/17 20:10 Calcium 8.3 mg/dL (8.5-10.1) L 06/18/17 20:10 Total Bilirubin 0.4 mg/dL (0.2-1.0) D 06/18/17 20:10 AST 19 U/L (15-37) D 06/18/17 20:10 ALT 15 U/L (12-78) 06/18/17 20:10 Alkaline Phosphatase 87 U/L (45-117) 06/18/17 20:10 Creatine Kinase 50 IU/L (26-192) 06/18/17 20:10 Troponin I 0.03 ng/ml (0.00-0.05) 06/18/17 20:10 Total Protein 6.3 g/dl (6.4-8.2) L 06/18/17 20:10 Albumin 2.9 g/dl (3.4-5.0) L 06/18/17 20:10 Slight elevation of BUN, non concerning 06/18/17 21:[address] Roberts covering for Dr. Mercado who felt comfortable with [facility] with [facility]up labs in the morning 06/18/17 22:15 Spoke with nurse (Bailey) at [facility] ([phone]) and conveyed Dr. Esquivel's request. She agreed they would repeat the labs in the morning. Patient discharged to [facility] *DC/Admit/Observation/Transfer Diagnosis at time of Disposition: Contusion Qualifiers: Encounter type: initial encounter Contusion area: head Contusion of head detail : scalp Qualified Code(s): S00.03XA - Contusion of scalp, initial encounter Head injury Qualifiers: Encounter type: initial encounter Qualified Code(s): S09.90XA - Unspecified injury of head, initial encounter - Discharge Dispostion Disposition: GROUP HOME FACILITY Admit: No - Referrals Referrals: Nazanin Ferguson MD [Primary Care Provider] - - Patient Instructions Printed Discharge Instructions: DI for Closed Head Injury Additional Instructions: Thank you for trusting us to care with Ms. Ziegler today. The CT did not show signs of any acute intracranial pathology. If her symptoms should worsen or her behavior becomes significantly different or she develops any new concerning symptoms please send her back to the emergency department. Dr. Esquivel asked that you rerun basic labs in the morning. - Attestations Physician Attestion: 06/18/17 22:09 I, Dr. Mega Hamilton, attest that this document has been prepared under my direction and personally reviewed by me in its entirety. I further attest, that it accurately reflects all work, treatment, procedures and medical decision -making performed by me.
--- NOTE | 2017-06-18 19:42 | PDOC ---
Attending Attestation - Resident Resident Name: [place] - ED Attending Attestation I have performed the following: I have examined & evaluated the patient, The case was reviewed & discussed with the resident, I agree w/resident's findings & plan, Exceptions are as noted - HPI HPI: 06/18/17 19:37 87 yo F with h/o HTN COPD, HLD, h/o cdiff, dementia, here from [facility] s/p unwitnessed fall. pt unable to provide details of what happened. per nursing staff at [facility], pt was found on floor, stated she had unwitnessed fall. unsure of LOC. pt has no c/o headache. no n/v no c/o joint pain. no neck or back pain. no other complaints. - Physicial Exam PE: 06/18/17 19:40 awake alert NAD. anterior scalp small redness / eccymosis, no hematoma. no bony step off. no cervical spine tenderness. no thoracic or lumbar spine stenosis. ext wwp. no edema. from bilat hips, nontender. atraumatic. pt awake. alert and oriented x 2. - Medical Decision Making 06/18/17 19:41 87 yo F s/p unwitness fall. differential ICH, anemia, electrolyte abnormlaity, syncope. plan ekg labs ct head. will d/w [facility] nursing faciliyt and lize dc back if all normal. Heart Score/ECG Review #1 General ECG Interpretation: Sinus Rhythm, Normal Rate (72 bpm), Normal Intervals , No acute ischemic changes - ECG Intrepretation Rhythm: Regular Rhythm
[2017-06-18 20:26] LABS: BASOPHIL 0.6 % (0-2.0); EOSINOPHIL 1.9 % (0-4.5); MCHC 34.3 g/dl (32.0-36.0); MEAN CELL VOLUME 93.3 fl (80-96); MEAN PLT VOLUME 8.2 fl (7.5-11.1); NEUTROPHILS 82.6 % (42.8-82.8); PLATELET COUNT 314 K/MM3 (134-434); RDW 16.9 % (11.6-15.6); WHITE BLOOD COUNT 9.4 K/mm3 (4.0-10.0)
[2017-06-18 20:51] LABS: ALBUMIN 2.9 g/dl (3.4-5.0); ANION GAP 9 (8-16); CALCIUM 8.3 mg/dL (8.5-10.1); CO2 26 mmol/L (21-32); GLUCOSE,RANDOM 112 mg/dL (74-106)
[2017-06-18 20:57] LABS: ALK PHOS 87 U/L (45-117); BILIRUBIN,TOTAL 0.4 mg/dL (0.2-1.0); CPK 50 IU/L (26-192); CREATININE 0.5 mg/dL (0.55-1.02); SGOT/AST 19 U/L (15-37); SGPT/ALT 15 U/L (12-78); TOT PROT 6.3 g/dl (6.4-8.2); TROPONIN I 0.03 ng/ml (0.00-0.05)
--- NOTE | 2017-06-19 14:53 | EKG ---
Test Reason : Blood Pressure : / mmHG Vent. Rate : 072 BPM Atrial Rate : 072 BPM P-R Int : 168 ms QRS Dur : 074 ms QT Int : 436 ms P-R-T Axes : 000 015 084 degrees QTc Int : 477 ms NORMAL SINUS RHYTHM CANNOT RULE OUT ANTERIOR INFARCT , AGE UNDETERMINED ABNORMAL ECG WHEN COMPARED WITH ECG OF 11-JUN-2017 03:53, PREMATURE SUPRAVENTRICULAR COMPLEXES ARE NO LONGER PRESENT ST NO LONGER DEPRESSED IN LATERAL LEADS NONSPECIFIC T WAVE ABNORMALITY NO LONGER EVIDENT IN INFERIOR LEADS Confirmed by LANDY REESE MD ([id number]) on 06/19/2017 2:53:24 PM Referred By: Confirmed By:LANDY REESE MD
== END 2017-06-18 23:37 ==
LOC: JER 17:54
DX: S00.03XA Contusion of scalp, initial encounter (principal); S09.90XA Unspecified injury of head, initial encounter; W19.XXXA Unspecified fall, initial encounter; Y93.89 Activity, other specified; Y92.099 Unspecified place in other non-institutional residence as the place of occurrence of the external cause; I10 Essential (primary) hypertension; E78.00 Pure hypercholesterolemia, unspecified; J44.9 Chronic obstructive pulmonary disease, unspecified; E87.6 Hypokalemia; K21.9 Gastro-esophageal reflux disease without esophagitis; F32.9 Major depressive disorder, single episode, unspecified
CPT/HCPCS: 36415; 70450-TC; 80053; 84484; 85025; 93005; 93010; 99283-25

== ENCOUNTER 2018-05-30 11:12 | Observation (INO) | payer OTHER, MEDICARE ==
--- NOTE | 2018-05-30 11:17 | PDOC ---
History of Present Illness - General Stated Complaint: SYNCOPE, SOB Time Seen by Provider: 05/30/18 11:16 History Source: Patient, Care Provider ([facility] nurse contacted via telephone.), [facility] Records Exam Limitations: No Limitations - History of Present Illness Initial Comments: 88 y/o female presenting to [facility] ER from [facility] after passing out for a few seconds per facility transfer paperwork. The pt herself has no active complaint. She states she experienced a sudden intense pain that moved from her hips to her chest that subsided spontaneously after less than 5 minutes. This occured after eating breakfast. Denies headache, change in vision, change in hearing, sore throat, shortness of breath, active chest pain, active abdominal pain, constipation, diarrhea, symptoms, or weakness. Per Nurse Kendall at [facility]: Pt was assisted to bathroom by nursing- aide and pt became cold, diaphoretic, and was slow to respond to questions. She was assisted back to her bed and symptoms resolved spontaneously. DNR: Yes Health Care Proxy: Andres Ziegler. Home [phone] Alternate Proxy: Jessica Ziegler Home [phone] Past History - Past Medical History Allergies/Adverse Reactions: Allergies Allergy/AdvReac Type Severity Reaction Status Date / Time No Known Allergies Allergy Verified 06/18/17 18:12 Home Medications: Ambulatory Orders Cyanocobalamin [Vitamin B12 -] 1,000 mcg PO DAILY 06/11/17 [place]-3S/Dha/Epa/Fish Oil [[place]-3 Fish Oil 1,000 mg Sfgl] 1 each PO BID hydrALAZINE HCL [Apresoline -] 25 mg PO BID 06/11/17 Acetaminophen [Tylenol .Regular Strength -] 650 mg PO Q4H PRN #0 tablet Donepezil HCl [Aricept -] 10 mg PO DAILY 06/18/17 Metoprolol Succinate [Toprol XL -] 50 mg PO DAILY 06/18/17 Potassium Chloride [K-Dur -] 20 meq PO DAILY 06/18/17 Aa/Hydrolyzed Collagen, Whey [Lps Neutral Flavor Liquid] 30 ml PO DAILY Ferrous Sulfate 325 mg PO DAILY 05/30/18 Furosemide [Lasix] 20 mg PO DAILY 05/30/18 Lactobacillus Acidophilus [Bacid -] 1 each PO TID 05/30/18 Mirtazapine [Remeron -] 15 mg PO HS 05/30/18 Anemia: Yes (vit b12 deficiency) COPD: Yes Dementia: Yes GI Disorders: Yes Disorders: Yes (uti) HTN: Yes Hypercholesterolemia: Yes Psychiatric Problems: Yes (depression) Comment:: - Alzheimer's disease - HTN - COPD - Hypokalemia - GERD - 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 - Immunization History Immunization Up to Date: Yes - Suicide/Smoking/Psychosocial Hx Smoking History: Never smoked Have you smoked in the past 12 months: No Hx Alcohol Use: No Drug/Substance Use Hx: No Substance Use Type: None Review of Systems - Review of Systems Able to Perform ROS?: Yes Is the patient limited Costa [place]ican proficient: No Constitutional: Yes: Chills, Diaphoresis, Weakness. No: Fever HEENTM: No: Recent change in vision, Double Vision, Throat Pain, Difficulty Swallowing Respiratory: No: Cough, Shortness of Breath Cardiac (ROS): Yes: Chest Pain, Syncope (Uncertain. ). No: Edema, Irregular Heart Rate ABD/GI: No: Constipated, Diarrhea, Nausea, Vomiting : No: Burning, Dysuria, Discharge, Hematuria Musculoskeletal: Yes: Muscle Pain Integumentary: No: Bruising, Rash Neurological: Yes: Dizziness. No: Headache Hematologic/Lymphatic: No: Easy Bleeding, Easy Bruising *Physical Exam - Physical Exam Comments: Constitutional: Well-developed, well-nourished female in no acute distress. Found semi-fowlers in hospital bed. Alert and oriented to person, place, time, and general timeline of events - some confusion and uncertainty with details of morning. Answered all questions appropriately and completely. Speech was non- labored, non-pressured. Head: Normocephalic. No obvious external signs of trauma. Eyes: Pupils 2mm bilaterally. Sclerae white. Conjunctiva moist and not injected. EARS: Hearing grossly intact. NOSE: No nasal discharge. THROAT: Oral cavity and pharynx normal. No inflammation, swelling, exudate, or lesions. No teeth or dentures appreciated. Neck: Supple, trachea is midline. No JVD. Cardiovascular: Regular rate and regular rhythm. No murmur, rubs, clicks, or gallops. Peripheral pulses: Radial pulses full Respiratory: Equal chest rise and fall. Clear to auscultation bilaterally. No stridor, no wheezing, no rhonchi. Clear phonation, not muffled. Gastrointestinal: abdomen is soft, non-tender, non-distended. No hepatosplenemegaly. No pulsatile masses. No overlying skin lesions or obvious signs of trauma. Neuro: Alert and oriented. Moving all four extremities spontaneously. 5/5 distal and prox strength in all extrem. Psych: Affect: appropriate. Mood: normal. Skin: Intact. No palpable nodules. No lesions or obvious signs of trauma. : No CVA tenderness. ED Treatment Course - LABORATORY CBC & Chemistry Diagram: 05/30/18 12:05 05/30/18 12:05 Medical Decision Making - Medical Decision Making *Reviewed nursing notes and prior visit documentation. 88 y/o presenting without current complaint s/p witnessed pre-syncope versus syncope. Afebrile. Vitals unremarkable for hypo/hypertension or mary/ tachycardia. Physical exam grossly normal. Pt well appearing. Considering vasovagal symptoms given episode occured in the bathroom and resolved to baseline quickly and without intervention. Considering occult arrhythmia despite no known history of such given pts age. Considering metabolic derangement, especially given past history of hypokalemia, though todays episode brief and resolving nature are less suggestive. Considered polypharmacy interaction. Considered atypical ACS presentation. Will obtain CBC, CMP, troponin (x2 trend), 12-lead EKG, and CXR. Initial EKG: Sinus rhythm, normal axis, with ST elevation in aVL (<1mm) and V2, ST depression in I, II aVF, and V6. CBC within normal limits. CMP unremarkable for metabolic derangement. Initial, troponin not elevated. CXR unremarkable for acute process. Discussed findings and plan for observation admission with pt and pts daughter. Both expressed verbal understanding and agreement. Will admit pt for tele observation with continued concern for occult/ paroxysmal arrhythmia in elderly female. Telephone consult with VERONICA Martinez who agrees to admit the pt to Dr. Terry service. *DC/Admit/Observation/Transfer Diagnosis at time of Disposition: Pre-syncope - Discharge Dispostion Condition at time of disposition: Good Decision to Admit order: Yes - Referrals - Patient Instructions - Post Discharge Activity
[2018-05-30 12:15] LABS: BASO % 0.7 % (0-2.0); EOS % 1.1 % (0-4.5); HEMATOCRIT 38.8 % (32.4-45.2); HEMOGLOBIN 13.3 GM/dL (10.7-15.3); LYMPH % 8.7 % (8-40); MCHC 34.4 g/dl (32.0-36.0); MEAN CELL VOLUME 93.2 fl (80-96); MEAN PLT VOLUME 7.2 fl (7.5-11.1); MONO % 8.3 % (3.8-10.2); NEUT % 81.2 % (42.8-82.8); PLATELET COUNT 235 K/MM3 (134-434); RBC 4.17 M/mm3 (3.60-5.2); RDW 13.2 % (11.6-15.6); WHITE BLOOD COUNT 6.1 K/mm3 (4.0-10.0)
[2018-05-30 12:38] LABS: ALBUMIN 3.4 g/dl (3.4-5.0); ANION GAP 9 (8-16); BILIRUBIN,TOTAL 0.4 mg/dL (0.2-1.0); BLOOD UREA NITROGEN 21 mg/dL (7-18); CALCIUM 8.4 mg/dL (8.5-10.1); CHLORIDE 109 mmol/L (98-107); CO2 26 mmol/L (21-32); CREATININE 0.7 mg/dL (0.55-1.02); GLUCOSE,RANDOM 84 mg/dL (74-106); POTASSIUM 3.9 mmol/L (3.5-5.1); SGOT/AST 18 U/L (15-37); SGPT/ALT 19 U/L (12-78); SODIUM 144 mmol/L (136-145); TOT PROT 6.8 g/dl (6.4-8.2)
[2018-05-30 12:40] LABS: ALK PHOS 119 U/L (45-117)
--- NOTE | 2018-05-30 14:47 | PDOC ---
Attending Attestation - Resident Resident Name: Mauricio Campbell - ED Attending Attestation I have performed the following: I have examined & evaluated the patient, The case was reviewed & discussed with the resident, I agree w/resident's findings & plan, Exceptions are as noted - HPI HPI: 05/30/18 14:47 88yo F h/o HTN COPD, HLD, h/o cdiff, dementia, here from [facility] with possible syncopal episode. Staff at the [facility] report that she used the bathroom and at an unknown time afterwards became unresponsive and slumped over in bed. Staff also reported she was pale at the time. Staff giving history was not present and is not sure if the patient lost consciousness or how long she was poorly responsive for. History is limited due to patient's dementia. - Physicial Exam PE: 05/30/18 15:00 agree with resident exam - Medical Decision Making 05/30/18 15:01 88yo F with MMP presents to the ED with syncope vs pre-syncope. EKG with some ST and T wave changes, but no sig change compared to EKG from 06/18/17. WIll admit to tele obs for cardiac monitoring Heart Score/ECG Review #1 05/30/18 15:08 Twelve-lead EKG was performed and reviewed by me. Normal sinus rhythm, rate 63. Normal axis. Sub 1mm to 1mm KENNEY in avL and V2. +sub 1mm STD in leads III, avf. No significant change compared to EKG from 06/18/2017.
[2018-05-30] MEDS ORDERED: ACETAMINOPHEN 325 MG TABLET (FP) PO PRN (15:13)
[2018-05-30] MEDS ORDERED: FERROUS SO4 325 MG TABLET (FP) ONE (17:36)
[2018-05-30] MEDS: FERROUS SO4 325 MG TABLET (FP) PO SCH (17:38)
[2018-05-30] MEDS: hydrALAZINE HCL 25 MG TABLET (FP) PO SCH (22:44)
[2018-05-30] MEDS: MIRTAZAPINE 15 MG TABLET (FP) PO SCH (22:44)
[2018-05-30] MEDS: LACTOBACILLUS ACIDOPHILUS 1 TABLET PO SCH (22:44)
[2018-05-30] MEDS: HEPARIN NA (PORCINE) 5,000 UNITS/ML 1ML VIAL SQ SCH (22:44)
[2018-05-31 05:01] VITALS: BMI 21.7
[2018-05-31] MEDS: LACTOBACILLUS ACIDOPHILUS 1 TABLET PO SCH ×3 (05:55→21:34)
--- NOTE | 2018-05-31 08:17 | HP ---
Admitting History and Physical - Primary Care Physician PCP: Nazanin Ferguson - Admission Chief Complaint: Pre-syncope/Syncope History of Present Illness: 88yo F h/o HTN COPD, HLD, h/o cdiff, dementia, here from [facility] with possible syncopal episode. Staff at the intermediate report that she used the bathroom and at an unknown time afterwards became unresponsive and slumped over in bed. Staff also reported she was pale at the time. Staff giving history was not present and is not sure if the patient lost consciousness or how long she was poorly responsive for. History is limited due to patient's dementia. 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 Cardiovascular: Yes: Hyperlipdemia Pulmonary: Yes: COPD Gastrointestinal: Yes: GERD Infectious Disease: Yes: C-Diff - Advance Directives Advance Directives: Yes: Health Care Proxy, DNR - Smoking History Smoking history: Never smoked Have you smoked in the past 12 months: No - Alcohol/Substance Use Hx Alcohol Use: No Home Medications - Allergies Allergies/Adverse Reactions: Allergies Allergy/AdvReac Type Severity Reaction Status Date / Time No Known Allergies Allergy Verified 06/18/17 18:12 - Home Medications Home Medications: Ambulatory Orders Cyanocobalamin [Vitamin B12 -] 1,000 mcg PO DAILY 06/11/17 [place]-3S/Dha/Epa/Fish Oil [[place]-3 Fish Oil 1,000 mg Sfgl] 1 each PO BID hydrALAZINE HCL [Apresoline -] 25 mg PO BID 06/11/17 Acetaminophen [Tylenol .Regular Strength -] 650 mg PO Q4H PRN #0 tablet Donepezil HCl [Aricept -] 10 mg PO DAILY 06/18/17 Metoprolol Succinate [Toprol XL -] 50 mg PO DAILY 06/18/17 Potassium Chloride [K-Dur -] 20 meq PO DAILY 06/18/17 Aa/Hydrolyzed Collagen, Whey [Lps Neutral Flavor Liquid] 30 ml PO DAILY Ferrous Sulfate 325 mg PO DAILY 05/30/18 Furosemide [Lasix] 20 mg PO DAILY 07/28/18 Lactobacillus Acidophilus [Bacid -] 1 each PO TID 05/30/18 Mirtazapine [Remeron -] 15 mg PO HS 05/30/18 Review of Systems Unable to obtain ROS, reason: Dementia Physical Examination Vital Signs: Vital Signs Temperature 97.8 F 05/31/18 05:53 Pulse Rate 68 05/31/18 05:53 Respiratory Rate 20 05/31/18 05:53 Blood Pressure 145/80 05/31/18 05:53 O2 Sat by Pulse Oximetry (%) 95 05/30/18 20:30 Constitutional: Yes: Well Nourished, No Distress, Calm Cardiovascular: Yes: Regular Rate and Rhythm Respiratory: Yes: Regular Gastrointestinal: Yes: Normal Bowel Sounds, Soft Musculoskeletal: Yes: Muscle Weakness Extremities: Yes: WNL Edema: No Peripheral Pulses WNL: Yes Neurological: Yes: Alert, Pre-Existing Deficit Psychiatric: Yes: Alert Labs: CBC, BMP 05/30/18 12:05 05/30/18 12:05 Imaging - Results Chest X-ray: Report Reviewed Problem List - Problems (1) Pre-syncope Assessment/Plan: -likely vasovagal -Cardiology clearance -d/c back to [facility] Code(s): R55 - SYNCOPE AND COLLAPSE (2) Dementia Code(s): F03.90 - UNSPECIFIED DEMENTIA WITHOUT BEHAVIORAL DISTURBANCE Assessment/Plan see problem list
[2018-05-31] MEDS: FERROUS SO4 325 MG TABLET (FP) PO SCH ×2 (10:41→17:23)
[2018-05-31] MEDS: DONEPEZIL HCL 10 MG TABLET (FP) PO SCH (10:42)
[2018-05-31] MEDS: HEPARIN NA (PORCINE) 5,000 UNITS/ML 1ML VIAL SQ SCH ×2 (10:42→21:34)
[2018-05-31] MEDS: hydrALAZINE HCL 25 MG TABLET (FP) PO SCH ×2 (10:42→21:34)
[2018-05-31] MEDS: POTASSIUM CHLORIDE TABS 10 MEQ TABLET.ER (FP) PO SCH (10:42)
[2018-05-31] MEDS: FUROSEMIDE 20 MG TABLET (FP) PO SCH (10:42)
[2018-05-31] MEDS: CYANOCOBALAMIN 1,000 MCG TABLET (FP) PO SCH (10:44)
--- NOTE | 2018-05-31 14:27 | CON.CARD ---
Consult Consult Specialty:: Cardiology Referred by:: Michelle/Marty Reason for Consultation:: syncope - History of Present Illness Chief Complaint: sent from [place] for syncope History of Present Illness: 88yo F h/o HTN COPD, HLD, h/o cdiff, dementia, sent from [place] for possible syncope. As per [place] report she used the bathroom and at an unknown time afterwards became unresponsive and slumped over in bed. Staff also reported she was pale at the time. Staff giving history was not present and is not sure if the patient lost consciousness or how long she was poorly responsive for. Pt does not remember passing out. she states that she has been feeling well. she states that she does remember a warm feeling coming over her and the next thing she knew she was in the hospital. She denies any chest pain, sob, palpitations. no pnd, orthopnea, or LE edema. no lightheadedness or dizziness, no syncope in the past. Echocardiogram 06/11/17: Mild concentric LVH with normal LV systolic function, EF 66%. Moderate TR. RVSP 51 mmHg. 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 Cardio/Vascular: Yes: Hyperlipdemia Pulmonary: Yes: COPD Gastrointestinal: Yes: GERD Infectious Disease: Yes: C-Diff - Alcohol/Substance Use Hx Alcohol Use: No - Smoking History Smoking history: Never smoked Have you smoked in the past 12 months: No - Social History Usual Living Arrangement: Alone Home Medications - Allergies Allergies/Adverse Reactions: Allergies Allergy/AdvReac Type Severity Reaction Status Date / Time No Known Allergies Allergy Verified 06/18/17 18:12 - Home Medications Home Medications: Ambulatory Orders Cyanocobalamin [Vitamin B12 -] 1,000 mcg PO DAILY 06/11/17 [place]-3S/Dha/Epa/Fish Oil [[place]-3 Fish Oil 1,000 mg Sfgl] 1 each PO BID hydrALAZINE HCL [Apresoline -] 25 mg PO BID 06/11/17 Acetaminophen [Tylenol .Regular Strength -] 650 mg PO Q4H PRN #0 tablet Donepezil HCl [Aricept -] 10 mg PO DAILY 06/18/17 Metoprolol Succinate [Toprol XL -] 50 mg PO DAILY 06/18/17 Potassium Chloride [K-Dur -] 20 meq PO DAILY 06/18/17 Aa/Hydrolyzed Collagen, Whey [Lps Neutral Flavor Liquid] 30 ml PO DAILY Ferrous Sulfate 325 mg PO DAILY 05/30/18 Furosemide [Lasix] 20 mg PO DAILY 05/30/18 Lactobacillus Acidophilus [Bacid -] 1 each PO TID 05/30/18 Mirtazapine [Remeron -] 15 mg PO HS 05/30/18 Family Disease History - Family Disease History Family History: Denies Review of Systems - Review of Systems Constitutional: denies: No Symptoms, Chills, Diaphoresis, Fever, Lethargy, Loss of Appetite, Malaise, Night Sweats, Unintentional Wgt. Loss, Weakness, Other Eyes: denies: No Symptoms, Blind Spots, Blurred Vision, Double Vision, Eye Pain , Floaters, Photophobia, Recent Change in Vision, Other HENT: denies: No Symptoms, Difficult Swallowing, Ear Discharge, Ear Pain, Epistaxis, Gingival Bleeding, Hearing Loss, Mouth Swelling, Nasal Congestion, Ocular Prosthesis, Throat Pain, Toothache, Ringing in Ears, Other Neck: denies: No Symptoms, Decreased ROM, Lumps, Pain on Movement, Stiffness, Swollen Glands, Tenderness, Other Cardiovascular: denies: No Symptoms, Chest Pain, Edema, Palpitations, Shortness of Breath, Other Respiratory: denies: No Symptoms, Cough, Exercise Intolerance, Hemoptysis, Orthopnea, PND, Snoring, SOB, SOB on Exertion, Wheezing, Other Gastrointestinal: denies: No Symptoms, Abdominal Pain, Bloating, Constipation, Diarrhea, Dysphagia, Indigestion, Melena, Nausea, Rectal Bleeding, Vomiting, Vomiting Blood, Other Genitourinary: denies: No Symptoms, Burning, Discharge, Dysuria, Flank Pain, Frequency, Hematuria, Incontinence, Lesions, Menses, Pain, Testicular Mass, Testicular Pain, Testicular Swelling, Urgency, Vaginal Bleeding, Other Breasts: denies: No Symptoms Reported, See HPI, Breast Implants, Discharge from Nipple, Lumps, Pain, Skin Changes, Other Musculoskeletal: denies: No Symptoms, Back Pain, Crepitus, Decreased ROM, Extremity Pain, Joint Pain, Joint Swelling, Muscle Pain, Muscle Cramps, Muscle Weakness, Other Integumentary: denies: No Symptoms, Blister, Bruising, Change in Color, Eczema, Erythema, Incision, Lesions, Lump, Pallor, Pruritis, Rash, Wound, Other Neurological: reports: Syncope. denies: No Symptoms, Change in LOC, Change in Speech, Confusion, Dizziness, Headache, Incoordination, Numbness, Parasthesia, Pre-Existing Deficit, Seizure, Tremors, Unsteady Gait, Weakness, Other Endocrine: denies: No Symptoms, Excessive Sweating, Flushing, Increased Hunger, Increased Thirst, Intolerance to Cold, Intolerance to Heat, Unexplained Weight Gain, Unexplained Weight Loss, Other Hematology/Lymphatic: denies: No Symptoms, Easily Bruised, Excessive Bleeding, Swollen Glands, Other Psychiatric: denies: No Symptoms, Altered Sleep Pattern, Anxiety, Depression, Hallucinations, Panic, Paranoia, Suicidal, Other - Risk Factors Known Risk Factors: Yes: Age, Hypertension, Physical Inactivity Vital Signs: Vital Signs Temperature 98.3 F 05/31/18 10:25 Pulse Rate 71 05/31/18 10:25 Respiratory Rate 18 05/31/18 10:25 Blood Pressure 140/78 05/31/18 10:25 O2 Sat by Pulse Oximetry (%) 98 05/31/18 09:00 Constitutional: Yes: Well Nourished, No Distress, Calm Eyes: Yes: WNL, Conjunctiva Clear, EOM Intact, PERRL HENT: Yes: WNL, Atraumatic, Normocephalic Neck: Yes: WNL, Supple, Trachea Midline Respiratory: Yes: WNL Gastrointestinal: Yes: WNL, Normal Bowel Sounds, Soft Renal/: Yes: WNL Cardiovascular: Yes: Regular Rate and Rhythm. No: Bradycardia, Tachycardia, Pulse Irregular, Gallop, Rub, Varicosities JVD: No Carotid Bruit: No PMI: Non-Displaced Heart Sounds: Yes: S1, S2. No: Split S2, S3, S4, Clicks, Gallop, Rub, Bruit Murmur: No: Systolic Murmur, Diastolic Murmur Musculoskeletal: Yes: WNL Extremities: Yes: WNL Edema: No Peripheral Pulses WNL: Yes Peripheral Pulses: 2+ Left Doralis Pedis, 2+ Right Dorsalis Pedis Integumentary: Yes: WNL Neurological: Yes: WNL, Alert, Oriented ...Motor Strength: WNL Psychiatric: Yes: WNL, Alert, Oriented - Other Data Labs, Other Data: CBC, BMP 05/30/18 12:05 05/30/18 12:05 ekg-nsr nsst Echo: Report Reviewed Imaging - Results Chest X-ray: Report Reviewed, Image Reviewed EKG: Report Reviewed, Image Reviewed Other: Report Reviewed, Image Reviewed (tele-nsr, pvcs) Assessment/Plan 88yo F h/o HTN COPD, HLD, h/o cdiff, dementia, sent from [place] for possible syncope. As per [place] report she used the bathroom and at an unknown time afterwards became unresponsive and slumped over in bed. Staff also reported she was pale at the time. Staff giving history was not present and is not sure if the patient lost consciousness or how long she was poorly responsive for. Pt does not remember passing out. she states that she has been feeling well. she states that she does remember a warm feeling coming over her and the next thing she knew she was in the hospital. She denies any chest pain, sob, palpitations. no pnd, orthopnea, or LE edema. no lightheadedness or dizziness, no syncope in the past. Possible syncope, unclear -pt unable to provide details but states that she felt warm before the event -possible vasovagal event -unlikely ACS, unlikely arrhythmia -no events on telemetry or ekg -cardiac enzymes wnl Echocardiogram 06/11/17: Mild concentric LVH with normal LV systolic function, EF 66%. Moderate TR. RVSP 51 mmHg. Normal RV size and function -Pt is acceptable for discharge from a cardiac standpoint
[2018-05-31] MEDS: MIRTAZAPINE 15 MG TABLET (FP) PO SCH (21:34)
[2018-06-01] MEDS: LACTOBACILLUS ACIDOPHILUS 1 TABLET PO SCH (06:32)
--- NOTE | 2018-06-01 07:59 | PN ---
Progress Note, Physician Chief Complaint: AWAKE IN BED DENIES CHEST PAIN OR SOB EVENTS AND NOTES REVIEWED - Current Medication List Current Medications: Active Medications Acetaminophen (Tylenol -) 650 mg PO Q4H PRN PRN Reason: FEVER Cyanocobalamin (Vitamin B12 -) 1,000 mcg PO DAILY [facility] Last Admin: 05/31/18 10:44 Dose: 1,000 mcg Donepezil HCl (Aricept -) 10 mg PO DAILY [facility] Last Admin: 05/31/18 10:42 Dose: 10 mg Ferrous Sulfate (Feosol -) 325 mg PO BIDWM [facility] Last Admin: 05/31/18 17:23 Dose: 325 mg Furosemide (Lasix -) 20 mg PO DAILY [facility] Last Admin: 05/31/18 10:42 Dose: 20 mg Heparin Sodium (Porcine) (Heparin -) 5,000 unit SQ BID [facility] Last Admin: 05/31/18 21:34 Dose: 5,000 unit Hydralazine HCl (Apresoline -) 25 mg PO BID [facility] Last Admin: 05/31/18 21:34 Dose: 25 mg Lactobacillus Acidophilus (Bacid -) 1 tab PO TID [facility] Last Admin: 06/01/18 06:32 Dose: 1 tab Metoprolol Succinate (Toprol Xl -) 50 mg PO DAILY [facility] Last Admin: 05/31/18 10:42 Dose: 50 mg Mirtazapine (Remeron -) 15 mg PO HS [facility] Last Admin: 05/31/18 21:34 Dose: 15 mg Potassium Chloride (K-Dur -) 20 meq PO DAILY [facility] Last Admin: 05/31/18 10:42 Dose: 20 meq - Objective Vital Signs: Vital Signs Temperature 98.1 F 06/01/18 05:00 Pulse Rate 60 06/01/18 05:00 Respiratory Rate 18 06/01/18 05:00 Blood Pressure 147/76 06/01/18 05:00 O2 Sat by Pulse Oximetry (%) 96 05/31/18 21:00 Constitutional: Yes: No Distress Eyes: Yes: WNL HENT: Yes: WNL Neck: Yes: WNL Cardiovascular: Yes: WNL Respiratory: Yes: WNL Gastrointestinal: Yes: WNL Genitourinary: Yes: Incontinence Musculoskeletal: Yes: Muscle Weakness Extremities: Yes: WNL Edema: No Peripheral Pulses WNL: Yes Integumentary: Yes: WNL Wound/Incision: Yes: Clean/Dry Neurological: Yes: Pre-Existing Deficit ...Motor Strength: LLE, RLE Psychiatric: Yes: Other Labs: CBC, BMP 05/30/18 12:05 05/30/18 12:05 Problem List - Problems (1) Pre-syncope Code(s): R55 - SYNCOPE AND COLLAPSE (2) CHF (congestive heart failure) Code(s): I50.9 - HEART FAILURE, UNSPECIFIED (3) Dementia Code(s): F03.90 - UNSPECIFIED DEMENTIA WITHOUT BEHAVIORAL DISTURBANCE Assessment/Plan NEURO/CARDIO EVAL MONITOR ON TELE PT EVAL IF WORKUP NEGATIVE TODAY CAN RETURN TO [facility] TOMORROW
--- NOTE | 2018-06-01 08:09 | DS ---
Physical Examination Vital Signs: Vital Signs Temperature 98.1 F 06/01/18 05:00 Pulse Rate 60 06/01/18 05:00 Respiratory Rate 18 06/01/18 05:00 Blood Pressure 147/76 06/01/18 05:00 O2 Sat by Pulse Oximetry (%) 96 05/31/18 21:00 Findings/Remarks: SEE PROGRESS NOTE TODAY Labs: CBC, BMP 05/30/18 12:05 05/30/18 12:05 Discharge Summary Reason For Visit: PRE SYNCOPE Current Active Problems Pre-syncope (Acute) Procedures: Principal: LABS/XRAYS Hospital Course: LIKELY SYNCOPE FROM [facility], ON TELE NO SIGNIFICANT ACUTE ALARMS, DC PLANNING Condition: Good - Instructions Diet, Activity, Other Instructions: [facility] Disposition: RESIDENTIAL FACILITY - Home Medications Comprehensive Discharge Medication List: Ambulatory Orders Cyanocobalamin [Vitamin B12 -] 1,000 mcg PO DAILY 06/11/17 [place]-3S/Dha/Epa/Fish Oil [[place]-3 Fish Oil 1,000 mg Sfgl] 1 each PO BID hydrALAZINE HCL [Apresoline -] 25 mg PO BID 06/11/17 Acetaminophen [Tylenol .Regular Strength -] 650 mg PO Q4H PRN #0 tablet Donepezil HCl [Aricept -] 10 mg PO DAILY 06/18/17 Metoprolol Succinate [Toprol XL -] 50 mg PO DAILY 06/18/17 Potassium Chloride [K-Dur -] 20 meq PO DAILY 06/18/17 Aa/Hydrolyzed Collagen, Whey [Lps Neutral Flavor Liquid] 30 ml PO DAILY Ferrous Sulfate 325 mg PO DAILY 05/30/18 Furosemide [Lasix] 20 mg PO DAILY 05/30/18 Lactobacillus Acidophilus [Bacid -] 1 each PO TID 05/30/18 Mirtazapine [Remeron -] 15 mg PO HS 05/30/18 Ferrous Sulfate [Feosol] 325 mg PO BIDWM ud 06/01/18 Heparin - 5,000 unit SQ BID vial 06/01/18
[2018-06-01 10:35] VITALS: BP 140/76; PULSE 68; TEMP 98.2
--- NOTE | 2018-06-01 10:35 | EKG ---
Test Reason : Blood Pressure : / mmHG Vent. Rate : 063 BPM Atrial Rate : 063 BPM P-R Int : 200 ms QRS Dur : 082 ms QT Int : 468 ms P-R-T Axes : 042 -07 042 degrees QTc Int : 478 ms NORMAL SINUS RHYTHM POSSIBLE LEFT ATRIAL ENLARGEMENT NONSPECIFIC T WAVE ABNORMALITY PROLONGED QT ABNORMAL ECG WHEN COMPARED WITH ECG OF 18-JUN-2017 20:53, T WAVE VARIATION Confirmed by DYNA PARKS, CHEMA ([id number]) on 06/01/2018 10:35:14 AM Referred By: Confirmed By:CHEMA ZAIDI MD
[2018-06-01] MEDS: FERROUS SO4 325 MG TABLET (FP) PO SCH (10:36)
[2018-06-01] MEDS: POTASSIUM CHLORIDE TABS 10 MEQ TABLET.ER (FP) PO SCH (10:37)
[2018-06-01] MEDS: HEPARIN NA (PORCINE) 5,000 UNITS/ML 1ML VIAL SQ SCH (10:37)
[2018-06-01] MEDS: DONEPEZIL HCL 10 MG TABLET (FP) PO SCH (10:37)
[2018-06-01] MEDS: hydrALAZINE HCL 25 MG TABLET (FP) PO SCH (10:37)
[2018-06-01] MEDS: FUROSEMIDE 20 MG TABLET (FP) PO SCH (10:38)
[2018-06-01] MEDS: CYANOCOBALAMIN 1,000 MCG TABLET (FP) PO SCH (10:40)
== END 2018-06-01 11:28 ==
LOC: JER 11:12 → JERBED 15:14 → J4W 20:31
PROVIDERS: ADMIT Internal Medicine; ATTEND Family Medicine
PROC: 3E013GC Introduction of Other Therapeutic Substance into Subcutaneous Tissue, Percutaneous Approach (ICD-10-PCS; principal; 2018-05-30)
DX: R55 Syncope and collapse (principal); I10 Essential (primary) hypertension; E78.5 Hyperlipidemia, unspecified; G30.9 Alzheimer's disease, unspecified; F02.80 Dementia in other diseases classified elsewhere, unspecified severity, without behavioral disturbance, psychotic disturbance, mood disturbance, and anxiety; J44.9 Chronic obstructive pulmonary disease, unspecified; E87.6 Hypokalemia; K21.9 Gastro-esophageal reflux disease without esophagitis; D51.0 Vitamin B12 deficiency anemia due to intrinsic factor deficiency; I50.9 Heart failure, unspecified; Z87.440 Personal history of urinary (tract) infections; Z86.19 Personal history of other infectious and parasitic diseases
CPT/HCPCS: 36415; 71045-TC-FY; 80053; 84484; 85025; 93005; 93010; 96372; 97116-GP; 97161-GP; 99283-25; G0378; J1644

== ENCOUNTER 2018-11-08 00:44 | Inpatient (IN) | payer OTHER, MEDICARE ==
--- NOTE | 2018-11-08 01:02 | PDOC ---
History of Present Illness - General Chief Complaint: Shortness of Breath Stated Complaint: DIFFICULTY BREATHING Time Seen by Provider: 11/08/18 01:01 - History of Present Illness Initial Comments: 88yo F with PMH of COPD, HTN, HLD, dementia presenting from [facility] for evaluation of shortness of breath. Per [place] paperwork, patient was found to have a RLL infiltrate on CXR taken on 11/07/17. She was satting 91% on room air and was placed on 2L NC. Patient denies cough or shortness of breath. She has no acute complaints except for pain on her right side. Patient does not remember a fall or injury to the area. Denies fever, chills, or chest pain. History is limited by patient's dementia. Past History - Past Medical History Allergies/Adverse Reactions: Allergies Allergy/AdvReac Type Severity Reaction Status Date / Time No Known Allergies Allergy Verified 11/08/18 01:03 Home Medications: Ambulatory Orders Cyanocobalamin [Vitamin B12 -] 1,000 mcg PO DAILY 06/11/17 [place]-3S/Dha/Epa/Fish Oil [[place]-3 Fish Oil 1,000 mg Sfgl] 1 each PO BID hydrALAZINE HCL [Apresoline -] 25 mg PO BID 06/11/17 Acetaminophen [Tylenol .Regular Strength -] 650 mg PO Q4H PRN #0 tablet Donepezil HCl [Aricept -] 10 mg PO DAILY 06/18/17 Metoprolol Succinate [Toprol XL -] 50 mg PO DAILY 06/18/17 Potassium Chloride [K-Dur -] 20 meq PO DAILY 06/18/17 Aa/Hydrolyzed Collagen, Whey [Lps Neutral Flavor Liquid] 30 ml PO DAILY Ferrous Sulfate 325 mg PO DAILY 05/30/18 Furosemide [Lasix] 20 mg PO DAILY 05/30/18 Lactobacillus Acidophilus [Bacid -] 1 each PO TID 05/30/18 Mirtazapine [Remeron -] 15 mg PO HS 05/30/18 Ferrous Sulfate [Feosol] 325 mg PO BIDWM ud 06/01/18 Heparin - 5,000 unit SQ BID vial 06/01/18 Anemia: Yes (vit b12 deficiency) COPD: Yes Dementia: Yes GI Disorders: Yes Disorders: Yes (uti) HTN: Yes Hypercholesterolemia: Yes Psychiatric Problems: Yes (depression) - Immunization History Immunization Up to Date: Yes - Suicide/Smoking/Psychosocial Hx Smoking History: Never smoked Have you smoked in the past 12 months: No Hx Alcohol Use: No Drug/Substance Use Hx: No Substance Use Type: None Review of Systems - Review of Systems Comments:: Constitutional: no fever, no chills HEENT: no throat pain, no dysphagia Cardiovascular: no chest pain, no palpitations Respiratory: no cough, no shortness of breath Gastrointestinal: no abdominal pain, no nausea, no vomiting Genitourinary: no dysuria, no frequency Musculoskeletal: no myalgia, no arthralgia Skin: no rash, no itching Neurologic: no headache, no dizziness *Physical Exam - Physical Exam Comments: General: Awake, alert, and oriented x 2 (oriented to person/place, but not time) , in no acute distress Head: No signs of trauma Eyes: EOMI, sclera anicteric ENT: Moist mucus membranes Neck: Normal ROM, supple Lungs: Crackles present on RLL; tender to palpation overlying anterolateral lower ribs Cardio: Regular rhythm, S1 and S2 present Abdomen: Soft, nontender Extremities: Normal range of motion, Distal pulses present SKIN: Warm, Dry, normal turgor Neurologic: Cranial nerves II through XII grossly intact. Normal speech ED Treatment Course - LABORATORY CBC & Chemistry Diagram: 11/09/18 06:30 11/09/18 06:30 Medical Decision Making - Medical Decision Making 88yo F with PMH of COPD, HTN, HLD, dementia presenting from [facility] for evaluation of shortness of breath. -DDX includes but not limited to sepsis, PNA, UTI, FUO -Rectal temp of 100.3 -Septic workup ordered, likely pneumonia -1g Ofirmev -Vanc and Zosyn to cover for HCAP -Right Rib series to evaluate patient's side pain 11/08/18 01:46 Patient signed out to Dr. Clarke 11/08/18 03:01 *DC/Admit/Observation/Transfer Diagnosis at time of Disposition: UTI (urinary tract infection) Qualifiers: Urinary tract infection type: site unspecified Hematuria presence: without hematuria Qualified Code(s): N39.0 - Urinary tract infection, site not specified - Discharge Dispostion Condition at time of disposition: Fair - Referrals - Patient Instructions - Post Discharge Activity
--- NOTE | 2018-11-08 01:24 | PDOC ---
Attending Attestation - Resident Resident Name: Narda Hernandezth - ED Attending Attestation I have performed the following: I have examined & evaluated the patient, The case was reviewed & discussed with the resident, I agree w/resident's findings & plan, Exceptions are as noted - HPI HPI: 11/08/18 23:44 88 years old past medical history significant for COPD hypertension hyperlipidemia dimension presents with shortness of breath. Per paperwork patient was diagnosed with a pneumonia yesterday she presents today satting 91% on room air she is complaining of right-sided rib pain which is persistent concent worse with coughing and movement - Physicial Exam PE: 11/08/18 23:45 Vitals: Triage Vital signs reviewed General Appearance: no acute distress, well nourished well developed, Head: Atraumatic, Chest Wall: Nontender Cardiac: Regular rate and rhythym, no murmurs, no rubs, no gallops, Lungs: Crackles at the right base, Abdomen: Soft, non distended, normal bowel sounds, non tender to palpation Extremities: Full range of motion to all extremities, no cyanosis, clubbing, or edema Skin: Warm and dry, no rash, no petechiaefungal rash under right breast Psych: normal mood, normal affect - Medical Decision Making 11/08/18 23:44 88 years old past medical history significant for COPD hypertension hyperlipidemia dimension presents with shortness of breath. Per paperwork patient was diagnosed with a pneumonia yesterday she presents today satting 91% on room air she is complaining of right-sided rib pain which is persistent concent worse with coughing and movement History and examination is concerning for hospital-acquired pneumonia Sepsis workup initiated given hypoxia and tachypnea she has been covered with broad-spectrum antibiotics she'll be admitted to the hospital for further management.
[2018-11-08] MEDS ORDERED: PIPERACILLIN/TAZOB 4.5 GM 4.5 GM in DEXTROSE 5%-WATER 100 ML IVPB ONE (01:27)
[2018-11-08] MEDS ORDERED: VANCOMYCIN 1,000 MG in DEXTROSE 5%-WATER - 250 ML IVPB ONE (01:27)
[2018-11-08] MEDS ORDERED: ACETAMINOPHEN 1000 MG/100 ML VIAL (NON FORMULARY) IVPB ONE (01:27)
[2018-11-08] MEDS ORDERED: PIPERACILLIN/TAZOB 4.5 GM 4.5 GM/100 ML BAG IVPB ONE (01:57)
[2018-11-08] MEDS ORDERED: ACETAMINOPHEN INJECTION 100 ML IVPB ONE (01:57)
[2018-11-08] MEDS ORDERED: VANCOMYCIN 1 GRAM (PRE-DOCKED) 1,000 MG/250 ML BAG IVPB ONE (01:58)
[2018-11-08] MEDS ORDERED: morphine CARPU-JECT 2 MG/1 ML DISP.SYRIN IVPUSH ONE (02:17)
[2018-11-08 02:23] LABS: BASO % 0.6 % (0-2.0); EOS % 0.2 % (0-4.5); HEMATOCRIT 40.4 % (32.4-45.2); HEMOGLOBIN 14.4 GM/dL (10.7-15.3); LYMPH % 4.1 % (8-40); MCH 33.5 pg (25.7-33.7); MCHC 35.5 g/dl (32.0-36.0); MEAN CELL VOLUME 94.5 fl (80-96); MEAN PLT VOLUME 7.3 fl (7.5-11.1); MONO % 7.4 % (3.8-10.2); NEUT % 87.7 % (42.8-82.8); PLATELET COUNT 200 K/MM3 (134-434); RBC 4.28 M/mm3 (3.60-5.2); WHITE BLOOD COUNT 11.1 K/mm3 (4.0-10.0)
[2018-11-08] MEDS ORDERED: MORPHINE SULFATE 2 MG/ML VIAL ONE (02:25)
[2018-11-08 02:34] LABS: INR 1.03 (0.83-1.09); PROTHROMBIN TIME (PATIENT) 12.2 SEC (9.7-13.0)
[2018-11-08 02:37] LABS: ACTIVATED PTT 33.6 SECONDS (25.2-36.5)
[2018-11-08 03:00] LABS: ALBUMIN 3.6 g/dl (3.4-5.0); ALK PHOS 104 U/L (45-117); ANION GAP 8 MMOL/L (8-16); BILIRUBIN,TOTAL 0.8 mg/dL (0.2-1); BLOOD UREA NITROGEN 18 mg/dL (7-18); CALCIUM 8.6 mg/dL (8.5-10.1); CHLORIDE 104 mmol/L (98-107); CO2 25 mmol/L (21-32); CREATININE 0.8 mg/dL (0.55-1.3); GLUCOSE,RANDOM 114 mg/dL (74-106); POTASSIUM 4.1 mmol/L (3.5-5.1); SGOT/AST 17 U/L (15-37); SGPT/ALT 23 U/L (13-61); SODIUM 137 mmol/L (136-145); TOT PROT 6.7 g/dl (6.4-8.2)
[2018-11-08 04:43] LABS: URINE APPEARANCE CLOUDY; URINE BILIRUBIN NEGATIVE (<2.0 mg/dL); URINE COLOR YELLOW; URINE GLUCOSE (UA) NEGATIVE (NEGATIVE); URINE KETONE NEGATIVE (NEGATIVE); URINE LEUK ESTERASE 1+ (NEGATIVE); URINE NITRITE POSITIVE (NEGATIVE); URINE PROTEIN NEGATIVE (NEGATIVE); URINE UROBILINOGEN NEGATIVE mg/dL (0.2-1.0)
[2018-11-08 04:46] LABS: EPI CELLS RARE /HPF (FEW); URINE BACTERIA RARE /hpf (NONE SEEN); URINE MUCUS RARE
--- NOTE | 2018-11-08 05:11 | PDOC ---
*Physical Exam - Vital Signs Last Vital Signs Temp Pulse Resp BP Pulse Ox 97.7 F 86 22 H 175/80 H 97 11/08/18 00:44 11/08/18 01:27 11/08/18 00:44 11/08/18 00:44 11/08/18 01:27 ED Treatment Course - LABORATORY CBC & Chemistry Diagram: 11/08/18 02:03 11/08/18 02:03 - ADDITIONAL ORDERS Additional order review: Laboratory Results 11/08/18 11/08/18 11/08/18 04:05 02:03 02:03 PT with INR INR PTT (Actin FS) Sodium Potassium Chloride Carbon Dioxide Anion Gap BUN Creatinine Creat Clearance w eGFR Random Glucose Lactic Acid 1.7 Calcium Total Bilirubin AST ALT Alkaline Phosphatase Troponin I < 0.02 Total Protein Albumin Urine Color Yellow Urine Appearance Cloudy Urine pH 5.0 D Ur Specific [place] 1.015 Urine Protein Negative Urine Glucose (UA) Negative Urine Ketones Negative Urine Blood Negative Urine Nitrite Positive Urine Bilirubin Negative Urine Urobilinogen Negative Ur Leukocyte Esterase 1+ H Urine WBC (Auto) 37 Urine RBC (Auto) 2 Ur Epithelial Cells Rare Urine Bacteria Rare Urine Mucus Rare 11/08/18 11/08/18 11/08/18 02:03 02:03 01:52 PT with INR 12.20 INR 1.03 PTT (Actin FS) 33.6 Sodium 137 Potassium 4.1 Chloride 104 Carbon Dioxide 25 Anion Gap 8 BUN 18 Creatinine 0.8 Creat Clearance w eGFR > 60 Random Glucose 114 H Lactic Acid 1.3 Calcium 8.6 Total Bilirubin 0.8 AST 17 ALT 23 Alkaline Phosphatase 104 Troponin I Total Protein 6.7 Albumin 3.6 Urine Color Urine Appearance Urine pH Ur Specific [place] Urine Protein Urine Glucose (UA) Urine Ketones Urine Blood Urine Nitrite Urine Bilirubin Urine Urobilinogen Ur Leukocyte Esterase Urine WBC (Auto) Urine RBC (Auto) Ur Epithelial Cells Urine Bacteria Urine Mucus 11/08/18 02:03 RBC 4.28 MCV 94.5 MCHC 35.5 RDW 13.0 MPV 7.3 L Neutrophils % 87.7 H Lymphocytes % 4.1 L D Monocytes % 7.4 Eosinophils % 0.2 D Basophils % 0.6 - Medications Given in the ED: ED Medications Discontinued Medications Generic Name Dose Route Start Last Admin Trade Name Freq PRN Reason Stop Dose Admin Acetaminophen 1,000 mg 11/08/18 01:27 11/08/18 02:11 Ofirmev Injection - IVPB 11/08/18 01:28 1,000 mg ONCE ONE Administration Vancomycin HCl 1,000 mg/ 250 mls @ 166.667 mls/hr 11/08/18 01:27 11/08/18 02: 36 Dextrose IVPB 11/08/18 02:56 166.667 mls/hr ONCE ONE Administration Protocol Piperacillin Sod/Tazobactam 100 mls @ 200 mls/hr 11/08/18 01:27 11/08/18 02: 13 Sod 4.5 gm/ Dextrose IVPB 11/08/18 01:56 200 mls/hr ONCE ONE Administration Protocol Morphine Sulfate 2 mg 11/08/18 02:17 11/08/18 02:36 Morphine Injection - IVPUSH 11/08/18 02:18 2 mg ONCE ONE Administration Medical Decision Making - Medical Decision Making 11/08/18 05:[address] Hernandez 88 yo female presents to ED from [facility] with low O2 sat and recent CXR showing RLL infiltrate. Pt has no complaints of SOB but does admit to right sided rib tenderness Tylenol given for rectal temp of 100.3 and morphine 2 mg for pain which has improved ED read: no rib fracture observed CXR. No acute path in the chest when compared to past Labs: neutrophil shift and + nitrites + estarase and WBCs Pt given Vanc/Zosyn Admit pt for UTI. Past cultures grow prot mirab and Faecium Pt admitted to Med Surg *DC/Admit/Observation/Transfer Diagnosis at time of Disposition: UTI (urinary tract infection) Qualifiers: Urinary tract infection type: site unspecified Hematuria presence: without hematuria Qualified Code(s): N39.0 - Urinary tract infection, site not specified - Discharge Dispostion Condition at time of disposition: Fair Decision to Admit order: Yes - Referrals Referrals: Alida Gibbons MD [Primary Care Provider] - - Patient Instructions - Post Discharge Activity
--- NOTE | 2018-11-08 05:27 | HP ---
Admitting History and Physical - Primary Care Physician PCP: Alida Gibbons - Admission Chief Complaint: R- Rib Pain, Pain on Inspiration History of Present Illness: This is a 88 y/o woman from [facility] with a PMHx of Alzheimer's, HTN, HLD, COPD , GERD, MDD, Vitamin B-12 deficiency Anemia, C- Diff. Who presents to the ED for R- rib/chest pain, increase pain on inspiration. Patient reports having increased pain to her R- ribs and chest on inspiration. Patent denies recent fall or head trauma. 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 Cardiovascular: Yes: HTN, Hyperlipdemia Pulmonary: Yes: COPD Gastrointestinal: Yes: GERD Heme/Onc: Yes: Anemia, B12 Deficiency Infectious Disease: Yes: C-Diff Psych: Yes: Depression - Smoking History Smoking history: Never smoked Have you smoked in the past 12 months: No - Alcohol/Substance Use Hx Alcohol Use: No History of Substance Use: reports: None - Social History Usual Living Arrangement: Yes: Long Term ADL: Support Services History of Recent Travel: No Home Medications - Allergies Allergies/Adverse Reactions: Allergies Allergy/AdvReac Type Severity Reaction Status Date / Time No Known Allergies Allergy Verified 11/08/18 01:03 - Home Medications Home Medications: Ambulatory Orders Cyanocobalamin [Vitamin B12 -] 1,000 mcg PO DAILY 06/11/17 [place]-3S/Dha/Epa/Fish Oil [[place]-3 Fish Oil 1,000 mg Sfgl] 1 each PO BID hydrALAZINE HCL [Apresoline -] 25 mg PO BID 06/11/17 Acetaminophen [Tylenol .Regular Strength -] 650 mg PO Q4H PRN #0 tablet Donepezil HCl [Aricept -] 10 mg PO DAILY 06/18/17 Metoprolol Succinate [Toprol XL -] 50 mg PO DAILY 06/18/17 Potassium Chloride [K-Dur -] 20 meq PO DAILY 06/18/17 Aa/Hydrolyzed Collagen, Whey [Lps Neutral Flavor Liquid] 30 ml PO DAILY Ferrous Sulfate 325 mg PO DAILY 05/30/18 Furosemide [Lasix] 20 mg PO DAILY 05/30/18 Lactobacillus Acidophilus [Bacid -] 1 each PO TID 05/30/18 Mirtazapine [Remeron -] 15 mg PO HS 05/30/18 Ferrous Sulfate [Feosol] 325 mg PO BIDWM ud 06/01/18 Heparin - 5,000 unit SQ BID vial 06/01/18 Family Disease History - Family Disease History Family History: Unable to Obtain Review of Systems Unable to obtain ROS, reason: Alzheimer's Physical Examination Vital Signs: Vital Signs Temperature 97.7 F 11/08/18 00:44 Pulse Rate 86 11/08/18 01:27 Respiratory Rate 22 H 11/08/18 00:44 Blood Pressure 175/80 H 11/08/18 00:44 O2 Sat by Pulse Oximetry (%) 97 11/08/18 01:27 Constitutional: Yes: No Distress, Calm Eyes: Yes: WNL, Conjunctiva Clear, EOM Intact, PERRL HENT: Yes: WNL, Atraumatic, Normocephalic Neck: Yes: WNL, Supple, Trachea Midline Cardiovascular: Yes: Regular Rate and Rhythm, Murmur, S1, S2 Respiratory: Yes: Diminished, On Nasal O2 Gastrointestinal: Yes: WNL, Normal Bowel Sounds, Soft Breast(s): Yes: WNL Musculoskeletal: Yes: Other (R- Rib Pain) Extremities: Yes: WNL Edema: No Peripheral Pulses WNL: Yes Neurological: Yes: Alert, Confusion, Cran Nerves II-XII Intact ...Motor Strength: WNL Psychiatric: Yes: Alert Labs: CBC, BMP 11/08/18 02:03 11/08/18 02:03 Troponin, BNP 11/08/18 02:03 Troponin I < 0.02 Intake & Output 11/05/18 11/06/18 11/07/18 11/08/18 23:59 23:59 23:59 23:59 Weight 64.682 kg Current Medications Generic Name Dose Route Start Last Admin Trade Name Freq PRN Reason Stop Dose Admin Acetaminophen 650 mg 11/08/18 09:57 Tylenol - PO Q4H PRN FEVER Donepezil HCl 10 mg 11/08/18 10:00 Aricept - PO DAILY NIKKI Ferrous Sulfate 325 mg 11/08/18 10:00 Feosol - PO DAILY NIKKI Furosemide 20 mg 11/08/18 10:00 Lasix - PO DAILY NIKKI Heparin Sodium (Porcine) 5,000 unit 11/08/18 10:00 Heparin - SQ BID NIKKI Hydralazine HCl 25 mg 11/08/18 10:00 Apresoline - PO BID NIKKI Piperacillin Sod/Tazobactam 50 mls @ 100 mls/hr 11/08/18 18:00 Sod 3.375 gm/ Dextrose IVPB Q8H-IV NIKKI Protocol Vancomycin HCl 1,000 mg in 250 mls @ 200 mls/hr 11/09/18 02:00 Vancomycin (Pre-Docked) IVPB Q24H NIKKI Protocol Piperacillin Sod/Tazobactam 50 mls @ 100 mls/hr 11/08/18 10:00 Sod 3.375 gm/ Dextrose IVPB 11/08/18 10:29 ONCE ONE Protocol Lactobacillus Acidophilus 1 tab 11/08/18 14:00 Bacid - PO TID NIKKI Metoprolol Succinate 50 mg 11/08/18 10:00 Toprol Xl - PO DAILY [facility] Mirtazapine 7.5 mg 11/08/18 22:00 Remeron - PO HS [facility] Non-Formulary Medication 1 each 11/08/18 10:00 [place]-3s/Dha/Epa/Fish Oil [[place]-3 Fish Oil 1,000 Mg Sfgl] PO BID NIKKI Potassium Chloride 20 meq 11/08/18 10:00 K-Dur - PO DAILY [facility] Imaging - Results Chest X-ray: Report Reviewed, Image Reviewed X-ray: Report Reviewed, Image Reviewed EKG: Pending Problem List - Problems (1) Pneumonia Assessment/Plan: [id number] Score 1 Chest Xray image- RLL infiltrate Blood Cultures-pending Vancomycin, Zosyn started in ED will continue Appreciate ID consult Monitor CBC Monitor vitals O2 Code(s): J18.9 - PNEUMONIA, UNSPECIFIED ORGANISM (2) UTI (urinary tract infection) Assessment/Plan: UA- +nitrate, +1 leukocyte esterase, 37WBCs Urine culture-pending Blood culture pending Hx- Vr Ec Faecium, Proteus Mirabilis Zosyn given in ED, will continue Appreciate ID consult Monitor CBC Monitor vitals Code(s): N39.0 - URINARY TRACT INFECTION, SITE NOT SPECIFIED Qualifiers: Urinary tract infection type: site unspecified Hematuria presence: without hematuria Qualified Code(s): N39.0 - Urinary tract infection, site not specified (3) Rib pain on right side Assessment/Plan: Rib Xray- no fx Tylenol prn Incentive spirometer O2 Code(s): R07.81 - PLEURODYNIA (4) COPD (chronic obstructive pulmonary disease) Assessment/Plan: stable Duonebs prn O2 Monitor vitals Code(s): J44.9 - CHRONIC OBSTRUCTIVE PULMONARY DISEASE, UNSPECIFIED (5) HTN (hypertension) Assessment/Plan: controlled Monitor BP Continue home meds with parameters Monitor renal function Code(s): I10 - ESSENTIAL (PRIMARY) HYPERTENSION (6) GERD (gastroesophageal reflux disease) Assessment/Plan: Continue PPI prn Code(s): K21.9 - GASTRO-ESOPHAGEAL REFLUX DISEASE WITHOUT ESOPHAGITIS (7) Alzheimer's dementia Assessment/Plan: Continue Aricept Fall Precautions Code(s): G30.9 - ALZHEIMER'S DISEASE, UNSPECIFIED; F02.80 - DEMENTIA IN OTH DISEASES CLASSD ELSWHR W/O BEHAVRL DISTURB (8) Depression Assessment/Plan: Continue Remeron Code(s): F32.9 - MAJOR DEPRESSIVE DISORDER, SINGLE EPISODE, UNSPECIFIED Assessment/Plan This is a 88 y/o woman admitted for Pneumonia, UTI, R- Rib Pain for further evaluation of their emergent condition. Plan: See Problem List FEN PO fluids as tolerated Replete lytes prn Low Na Chopped Diet DVT ppx OOB SCDs Heparin SQ Code Status: DNR Dispo: Requires Inpatient Care Visit type - Emergency Visit Emergency Visit: Yes ED Registration Date: 11/08/18 Care time: The patient presented to the Emergency Department on the above date and was hospitalized for further evaluation of their emergent condition. - New Patient This patient is new to me today: Yes Date on this admission: 11/08/18 - Critical Care Critical Care patient: No
[2018-11-08] MEDS ORDERED: ACETAMINOPHEN 325 MG TABLET (FP) PO PRN (09:57)
[2018-11-08] MEDS ORDERED: PIPERACILLIN/TAZOB 3.375 GM 3.375 GM in DEXTROSE 5%-WATER - 50 ML IVPB ONE (10:00)
[2018-11-08] MEDS ORDERED: ALBUTEROL SO4 2.5/IPRATROPIUM 0.5 INH SOL 3 ML VIAL.NEB. NEB PRN (10:32)
[2018-11-08] MEDS ORDERED: DEXTROSE 5%-WATER - 50 ML IVPB ONE ×2 (10:46→17:08)
[2018-11-08] MEDS ORDERED: PIPERACILLIN/TAZOBACTAM 3.375 GM VIAL IVPB ONE ×2 (10:46→17:08)
[2018-11-08] MEDS: DONEPEZIL HCL 10 MG TABLET (FP) PO SCH (11:27)
[2018-11-08] MEDS: OMEGA-3 ACID ETHYL ESTERS (FATTY-ACIDS) 1 GM CAPSULE (FP) PO SCH ×2 (11:27→22:25)
[2018-11-08] MEDS: hydrALAZINE HCL 25 MG TABLET (FP) PO SCH ×2 (11:27→22:25)
[2018-11-08] MEDS: FERROUS SO4 325 MG TABLET (FP) PO SCH (11:27)
[2018-11-08] MEDS: HEPARIN NA (PORCINE) 5,000 UNITS/ML 1ML VIAL SQ SCH ×2 (11:28→22:25)
[2018-11-08] MEDS: POTASSIUM CHLORIDE TABS 20 MEQ TABLET.ER (FP) PO SCH (11:28)
[2018-11-08] MEDS: FUROSEMIDE 20 MG TABLET (FP) PO SCH (11:28)
[2018-11-08 12:20] VITALS: BMI 26.8
--- NOTE | 2018-11-08 12:33 | PN ---
Progress Note, Physician Chief Complaint: AWAKE ALERT X 2 EVENTS AND NOTES REVIEWED HERE WITH COUGH/CONGESTION XRAY SHOWS INFILTRATE - Current Medication List Current Medications: Active Medications Acetaminophen (Tylenol -) 650 mg PO Q4H PRN PRN Reason: FEVER Albuterol/Ipratropium (Duoneb -) 1 amp NEB Q6H PRN PRN Reason: SHORTNESS OF BREATH Donepezil HCl (Aricept -) 10 mg PO DAILY [facility] Last Admin: 11/08/18 11:27 Dose: 10 mg Ferrous Sulfate (Feosol -) 325 mg PO DAILY [facility] Last Admin: 11/08/18 11:27 Dose: 325 mg Furosemide (Lasix -) 20 mg PO DAILY [facility] Last Admin: 11/08/18 11:28 Dose: 20 mg Heparin Sodium (Porcine) (Heparin -) 5,000 unit SQ BID [facility] Last Admin: 11/08/18 11:28 Dose: 5,000 unit Hydralazine HCl (Apresoline -) 25 mg PO BID [facility] Last Admin: 11/08/18 11:27 Dose: 25 mg Piperacillin Sod/Tazobactam (Sod 3.375 gm/ Dextrose) 50 mls @ 100 mls/hr IVPB Q8H-IV NIKKI; Protocol Vancomycin HCl (Vancomycin (Pre-Docked)) 1,000 mg in 250 mls @ 200 mls/hr IVPB Q24H [facility]; Protocol Lactobacillus Acidophilus (Bacid -) 1 tab PO TID [facility] Metoprolol Succinate (Toprol Xl -) 50 mg PO DAILY [facility] Last Admin: 11/08/18 11:28 Dose: 50 mg Mirtazapine (Remeron -) 7.5 mg PO [facility] [id number] Ethyl Esters (Lovaza -) 2 gm PO BID [facility] Last Admin: 11/08/18 11:27 Dose: 2 gm Potassium Chloride (K-Dur -) 20 meq PO DAILY [facility] Last Admin: 11/08/18 11:28 Dose: 20 meq - Objective Vital Signs: Vital Signs Temperature 97.9 F 11/08/18 08:00 Pulse Rate 65 11/08/18 08:00 Respiratory Rate 18 11/08/18 08:00 Blood Pressure 161/70 11/08/18 08:00 O2 Sat by Pulse Oximetry (%) 98 11/08/18 05:06 Constitutional: Yes: Mild Distress Eyes: Yes: WNL HENT: Yes: WNL Neck: Yes: WNL Cardiovascular: Yes: Pulse Irregular Respiratory: Yes: Diminished, On Nasal O2 Gastrointestinal: Yes: Soft Genitourinary: Yes: Incontinence Musculoskeletal: Yes: Muscle Weakness Edema: No Peripheral Pulses WNL: Yes Integumentary: Yes: WNL Neurological: Yes: Pre-Existing Deficit Labs: CBC, BMP 11/08/18 02:03 11/08/18 02:03 INR, PTT INR 1.03 (0.83-1.09) 11/08/18 02:03 Problem List - Problems (1) Alzheimer's dementia Code(s): G30.9 - ALZHEIMER'S DISEASE, UNSPECIFIED; F02.80 - DEMENTIA IN OTH DISEASES CLASSD ELSWHR W/O BEHAVRL DISTURB (2) COPD (chronic obstructive pulmonary disease) Code(s): J44.9 - CHRONIC OBSTRUCTIVE PULMONARY DISEASE, UNSPECIFIED (3) Depression Code(s): F32.9 - MAJOR DEPRESSIVE DISORDER, SINGLE EPISODE, UNSPECIFIED (4) GERD (gastroesophageal reflux disease) Code(s): K21.9 - GASTRO-ESOPHAGEAL REFLUX DISEASE WITHOUT ESOPHAGITIS (5) HTN (hypertension) Code(s): I10 - ESSENTIAL (PRIMARY) HYPERTENSION (6) Pneumonia Code(s): J18.9 - PNEUMONIA, UNSPECIFIED ORGANISM (7) Rib pain on right side Code(s): R07.81 - PLEURODYNIA (8) UTI (urinary tract infection) Code(s): N39.0 - URINARY TRACT INFECTION, SITE NOT SPECIFIED Qualifiers: Urinary tract infection type: site unspecified Hematuria presence: without hematuria Qualified Code(s): N39.0 - Urinary tract infection, site not specified Assessment/Plan IV ABX NEBS ID/PULM EVAL LG ANTIGEN PT EVAL OOB TO CHAIR CHECK CULTURES DVT PROPHYLAXIS
[2018-11-08] MEDS: LACTOBACILLUS ACIDOPHILUS 1 TABLET PO SCH ×2 (13:20→22:25)
--- NOTE | 2018-11-08 16:38 | EKG ---
Test Reason : Blood Pressure : / mmHG Vent. Rate : 076 BPM Atrial Rate : 076 BPM P-R Int : 206 ms QRS Dur : 080 ms QT Int : 418 ms P-R-T Axes : 033 002 004 degrees QTc Int : 470 ms NORMAL SINUS RHYTHM ANTERIOR INFARCT , AGE UNDETERMINED ABNORMAL ECG WHEN COMPARED WITH ECG OF 30-MAY-2018 11:18, NONSPECIFIC T WAVE ABNORMALITY, IMPROVED IN LATERAL LEADS Confirmed by MD KYLAH, NISHA ([id number]) on 11/08/2018 4:38:16 PM Referred By: Confirmed By:NISHA MONTERO MD
--- NOTE | 2018-11-08 17:21 | PN ---
Progress Note (short form) - Note Progress Note: ID Consult dictated RLL HCAP Exacerbation COPD UTI OBS Await c/s Continue empiric zosyn
[2018-11-08] MEDS: PIPERACILLIN/TAZOB 3.375 GM 3.375 GM in DEXTROSE 5%-WATER - 50 ML IVPB SCH (17:49)
[2018-11-08] MEDS ORDERED: PIPERACILLIN/TAZOB 3.375 GM 3.375 GM in DEXTROSE 5%-WATER - 50 ML IVPB SCH (18:00)
--- NOTE | 2018-11-08 18:29 | CONS ---
DATE OF CONSULTATION: 11/08/2018 The patient is an 88-year-old female, with history of COPD and dementia, evaluated for pneumonia. History was obtained from the chart. She was admitted to the hospital on November 08, 2018, with worsening shortness of breath. At the [facility], she had experienced shortness of breath, and a chest x-ray reportedly showed right lower lobe infiltrate. She was evaluated in the emergency room, where she complained of right-sided pleuritic type chest pain. Chest x-ray shows a right-sided infiltrate. Cultures were obtained. She was empirically treated with vancomycin and Zosyn. At the present time, she is awake and alert. She complains of right-sided chest pain with deep inspiration and cough. She reports cough with white sputum production. She denies any shortness of breath. Her course has been complicated by low-grade fever. She denies any abdominal pain, vomiting, diarrhea, dysuria, or hematuria. Past medical history positive for COPD, dementia, hypertension, hyperlipidemia, gastroesophageal reflux. No known allergies. Medications include Tylenol, albuterol, Aricept, Lasix, hydralazine, Toprol, Remeron, Zosyn, vancomycin. SOCIAL HISTORY: snf resident. No active alcohol or tobacco history. SYSTEMS REVIEW: Neurologic: Positive for dementia. Cardiac: Negative chest pain or palpitations. Respiratory: As per HPI. Gastrointestinal: Negative vomiting or diarrhea. Genitourinary: Negative for urinary tract infection. LABORATORY DATA: White count 11.1, hematocrit 40.4, platelets 200. Creatinine 0.8. Liver enzymes normal. Urinalysis: 37 white cells. Flu swab negative. PHYSICAL EXAMINATION: General: She is awake and alert, seated in bed, in no acute distress, not acutely dyspneic. Vital Signs: Temperature 98.4, T-max 100.6. Blood pressure 131/73. Pulse 62, regular. Respirations 18 per minute. Eyes: Sclerae anicteric. Heart Sounds: S1, S2. Lungs: Diminished breath sounds bilaterally. Abdomen: Soft. No tenderness elicited. No mass, rebound or rigidity. Extremities: Negative for edema. IMPRESSION: 1. Healthcare-acquired right lower lobe pneumonia. 2. Acute exacerbation of chronic obstructive pulmonary disease. 3. Urinary tract infection. 4. Dementia. Await cultures. Continue Zosyn. The patient has been given 2 doses of vancomycin. Further recommendations pending cultures. Will follow. Thank you for the kind referral. TRINIDAD CHAN M.D. ROMEO/[id number]
[2018-11-08] MEDS: MIRTAZAPINE 15 MG TABLET (FP) PO SCH (22:25)
[2018-11-09] MEDS ORDERED: PIPERACILLIN/TAZOBACTAM 3.375 GM VIAL IVPB ONE ×3 (01:32→17:43)
[2018-11-09] MEDS ORDERED: DEXTROSE 5%-WATER - 50 ML IVPB ONE ×3 (01:32→17:43)
[2018-11-09] MEDS ORDERED: VANCOMYCIN 1 GRAM (PRE-DOCKED) 1,000 MG/250 ML BAG IVPB SCH (02:00)
[2018-11-09] MEDS: PIPERACILLIN/TAZOB 3.375 GM 3.375 GM in DEXTROSE 5%-WATER - 50 ML IVPB SCH ×3 (02:26→17:59)
[2018-11-09] MEDS: LACTOBACILLUS ACIDOPHILUS 1 TABLET PO SCH ×3 (05:24→22:14)
[2018-11-09 07:45] LABS: ANION GAP 7 MMOL/L (8-16); BLOOD UREA NITROGEN 20 mg/dL (7-18); CALCIUM 8.1 mg/dL (8.5-10.1); CHLORIDE 109 mmol/L (98-107); CO2 24 mmol/L (21-32); CREATININE 0.8 mg/dL (0.55-1.3); GLUCOSE,RANDOM 94 mg/dL (74-106); POTASSIUM 4.1 mmol/L (3.5-5.1); SODIUM 140 mmol/L (136-145)
[2018-11-09] MEDS: HEPARIN NA (PORCINE) 5,000 UNITS/ML 1ML VIAL SQ SCH ×2 (10:14→22:14)
[2018-11-09] MEDS: OMEGA-3 ACID ETHYL ESTERS (FATTY-ACIDS) 1 GM CAPSULE (FP) PO SCH ×2 (10:14→22:14)
[2018-11-09] MEDS: DONEPEZIL HCL 10 MG TABLET (FP) PO SCH (10:14)
[2018-11-09] MEDS: hydrALAZINE HCL 25 MG TABLET (FP) PO SCH ×2 (10:14→22:14)
[2018-11-09] MEDS: FUROSEMIDE 20 MG TABLET (FP) PO SCH (10:14)
[2018-11-09] MEDS: FERROUS SO4 325 MG TABLET (FP) PO SCH (10:14)
[2018-11-09] MEDS: POTASSIUM CHLORIDE TABS 20 MEQ TABLET.ER (FP) PO SCH (10:14)
--- NOTE | 2018-11-09 10:59 | CON.PULM ---
Consult Consult Specialty:: PULM/CCM Referred by:: ANGELY Reason for Consultation:: SOB / CP - History of Present Illness Chief Complaint: SOB / right rib pain History of Present Illness: 88 F, SNF resident, Alzheimer's dementia, HTN, HLD, COPD, GERD, MDD, Vitamin B- 12 deficiency Anemia, and C- Diff. Admitted via the ER due to apparent Right sided rib/chest pain that worsens with deep breathing. No apparent fall or trauma. No travel history or sick contacts. No hemoptysis or night sweats. CXR: No obvious fracture / bibasilar infiltrates. 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 Cardio/Vascular: Yes: HTN, Hyperlipdemia Pulmonary: Yes: COPD Gastrointestinal: Yes: GERD ...: No Infectious Disease: Yes: C-Diff Psych: Yes: Depression - Alcohol/Substance Use Hx Alcohol Use: No History of Substance Use: reports: None - Smoking History Smoking history: Never smoked Have you smoked in the past 12 months: No - Social History Usual Living Arrangement: Alone ADL: Support Services History of Recent Travel: No Home Medications - Allergies Allergies/Adverse Reactions: Allergies Allergy/AdvReac Type Severity Reaction Status Date / Time No Known Allergies Allergy Verified 11/08/18 01:03 - Home Medications Home Medications: Ambulatory Orders Cyanocobalamin [Vitamin B12 -] 1,000 mcg PO DAILY 06/11/17 [place]-3S/Dha/Epa/Fish Oil [[place]-3 Fish Oil 1,000 mg Sfgl] 1 each PO BID hydrALAZINE HCL [Apresoline -] 25 mg PO BID 06/11/17 Acetaminophen [Tylenol .Regular Strength -] 650 mg PO Q4H PRN #0 tablet Donepezil HCl [Aricept -] 10 mg PO DAILY 06/18/17 Metoprolol Succinate [Toprol XL -] 50 mg PO DAILY 06/18/17 Potassium Chloride [K-Dur -] 20 meq PO DAILY 06/18/17 Aa/Hydrolyzed Collagen, Whey [Lps Neutral Flavor Liquid] 30 ml PO DAILY Ferrous Sulfate 325 mg PO DAILY 05/30/18 Furosemide [Lasix] 20 mg PO DAILY 05/30/18 Lactobacillus Acidophilus [Bacid -] 1 each PO TID 05/30/18 Mirtazapine [Remeron -] 15 mg PO HS 05/30/18 Ferrous Sulfate [Feosol] 325 mg PO BIDWM ud 06/01/18 Heparin - 5,000 unit SQ BID vial 06/01/18 Review of Systems - Review of Systems Constitutional: reports: Malaise. denies: Chills, Fever, Night Sweats Eyes: reports: No Symptoms HENT: reports: No Symptoms Neck: reports: No Symptoms Cardiovascular: reports: Chest Pain, Shortness of Breath. denies: Edema, Palpitations Respiratory: reports: Cough, SOB, SOB on Exertion. denies: Hemoptysis, Snoring , Wheezing Gastrointestinal: reports: No Symptoms Genitourinary: reports: No Symptoms Breasts: reports: No Symptoms Reported Musculoskeletal: reports: Muscle Pain Integumentary: reports: No Symptoms Neurological: reports: Confusion Endocrine: reports: No Symptoms Hematology/Lymphatic: reports: No Symptoms Psychiatric: reports: No Symptoms Physical Exam Vital Sings: Vital Signs Temperature 98.1 F 11/09/18 10:00 Pulse Rate 61 11/09/18 10:00 Respiratory Rate 20 11/09/18 10:00 Blood Pressure 145/69 11/09/18 10:00 O2 Sat by Pulse Oximetry (%) 94 L 11/08/18 21:00 Constitutional: Yes: Well Nourished, No Distress Eyes: Yes: Conjunctiva Clear, EOM Intact HENT: Yes: Atraumatic, Normocephalic Neck: Yes: Supple, Trachea Midline Cardiovascular: Yes: Regular Rate and Rhythm Respiratory: Yes: Cough, Diminished, Rhonchi. No: Accessory Muscle Use, Rales, SOB, SOB on Exertion, Stridor, Tachypnea, Wheezes ...Inspection: Yes: WNL ...Clubbing: No Gastrointestinal: Yes: Normal Bowel Sounds, Soft Renal/: Yes: WNL Musculoskeletal: Yes: WNL Extremities: Yes: WNL Edema: No Peripheral Pulses WNL: Yes Integumentary: Yes: WNL Neurological: Yes: WNL, Alert, Oriented ...Motor Strength: WNL Psychiatric: Yes: WNL, Alert, Oriented Labs: CBC, BMP 11/09/18 06:30 Imaging - Results Chest X-ray: Report Reviewed, Image Reviewed Problem List - Problems (1) Alzheimer's dementia Code(s): G30.9 - ALZHEIMER'S DISEASE, UNSPECIFIED; F02.80 - DEMENTIA IN OTH DISEASES CLASSD ELSWHR W/O BEHAVRL DISTURB (2) COPD (chronic obstructive pulmonary disease) Code(s): J44.9 - CHRONIC OBSTRUCTIVE PULMONARY DISEASE, UNSPECIFIED (3) Depression Code(s): F32.9 - MAJOR DEPRESSIVE DISORDER, SINGLE EPISODE, UNSPECIFIED (4) GERD (gastroesophageal reflux disease) Code(s): K21.9 - GASTRO-ESOPHAGEAL REFLUX DISEASE WITHOUT ESOPHAGITIS (5) HTN (hypertension) Code(s): I10 - ESSENTIAL (PRIMARY) HYPERTENSION (6) Pneumonia Code(s): J18.9 - PNEUMONIA, UNSPECIFIED ORGANISM (7) Rib pain on right side Code(s): R07.81 - PLEURODYNIA Assessment/Plan ABX Per ID O2 as needed Check sputum Check urinary antigen VTE prophylaxis Incentive Spirometry Do not feel additional imaging is required BD TX No indication for systemic steroids at this time Will follow Thank you. Dr Ramirez
[2018-11-09 12:04] LABS: EOS % 2.7 % (0-4.5); HEMATOCRIT 36.8 % (32.4-45.2); LYMPH % 15.9 % (8-40); MCH 33.8 pg (25.7-33.7); MCHC 35.3 g/dl (32.0-36.0); MEAN CELL VOLUME 95.9 fl (80-96); MEAN PLT VOLUME 8.6 fl (7.5-11.1); MONO % 16.1 % (3.8-10.2); NEUT % 64.3 % (42.8-82.8); PLATELET COUNT 207 K/MM3 (134-434); RBC 3.83 M/mm3 (3.60-5.2); RDW 13.3 % (11.6-15.6)
--- NOTE | 2018-11-09 12:31 | PN ---
Progress Note, Physician Chief Complaint: patient seen and examined - Current Medication List Current Medications: Active Medications Acetaminophen (Tylenol -) 650 mg PO Q4H PRN PRN Reason: FEVER Albuterol/Ipratropium (Duoneb -) 1 amp NEB Q6H PRN PRN Reason: SHORTNESS OF BREATH Donepezil HCl (Aricept -) 10 mg PO DAILY [facility] Last Admin: 11/09/18 10:14 Dose: 10 mg Ferrous Sulfate (Feosol -) 325 mg PO DAILY [facility] Last Admin: 11/09/18 10:14 Dose: 325 mg Furosemide (Lasix -) 20 mg PO DAILY [facility] Last Admin: 11/09/18 10:14 Dose: 20 mg Heparin Sodium (Porcine) (Heparin -) 5,000 unit SQ BID [facility] Last Admin: 11/09/18 10:14 Dose: 5,000 unit Hydralazine HCl (Apresoline -) 25 mg PO BID [facility] Last Admin: 11/09/18 10:14 Dose: 25 mg Piperacillin Sod/Tazobactam (Sod 3.375 gm/ Dextrose) 50 mls @ 100 mls/hr IVPB Q8H-IV [facility]; Protocol Last Admin: 11/09/18 10:13 Dose: 100 mls/hr Lactobacillus Acidophilus (Bacid -) 1 tab PO TID [facility] Last Admin: 11/09/18 05:24 Dose: 1 tab Metoprolol Succinate (Toprol Xl -) 50 mg PO DAILY [facility] Last Admin: 11/09/18 10:14 Dose: 50 mg Mirtazapine (Remeron -) 7.5 mg PO HS [facility] Last Admin: 11/08/18 22:25 Dose: 7.5 mg [place]-3-Gfer Ethyl Esters (Lovaza -) 2 gm PO BID [facility] Last Admin: 11/09/18 10:14 Dose: 2 gm Potassium Chloride (K-Dur -) 20 meq PO DAILY [facility] Last Admin: 11/09/18 10:14 Dose: 20 meq - Objective Vital Signs: Vital Signs Temperature 98.1 F 11/09/18 10:00 Pulse Rate 61 11/09/18 10:00 Respiratory Rate 20 11/09/18 10:00 Blood Pressure 145/69 11/09/18 10:00 O2 Sat by Pulse Oximetry (%) 95 11/09/18 09:00 Constitutional: Yes: Calm Cardiovascular: Yes: Regular Rate and Rhythm Respiratory: Yes: Diminished (on right side) Gastrointestinal: Yes: Normal Bowel Sounds, Soft Edema: No Neurological: Yes: Alert Labs: CBC, BMP 11/09/18 06:30 11/09/18 06:30 INR, PTT INR 1.03 (0.83-1.09) 11/08/18 02:03 Problem List - Problems (1) Alzheimer's dementia Assessment/Plan: aricept Code(s): G30.9 - ALZHEIMER'S DISEASE, UNSPECIFIED; F02.80 - DEMENTIA IN OTH DISEASES CLASSD ELSWHR W/O BEHAVRL DISTURB (2) Pneumonia Assessment/Plan: iv abx zosyn urine legionella negative swallow eval dvt ppx Code(s): J18.9 - PNEUMONIA, UNSPECIFIED ORGANISM (3) Depression Assessment/Plan: remeron Code(s): F32.9 - MAJOR DEPRESSIVE DISORDER, SINGLE EPISODE, UNSPECIFIED (4) HTN (hypertension) Assessment/Plan: hydralazine Code(s): I10 - ESSENTIAL (PRIMARY) HYPERTENSION
--- NOTE | 2018-11-09 13:00 | CONSULT ---
Admitting History and Physical - Primary Care Physician PCP: Alida Gibbons - Admission History of Present Illness: This is a 88 y/o woman from [facility] with a PMHx of Alzheimer's, HTN, HLD, COPD , GERD, MDD, Vitamin B-12 deficiency Anemia, C- Diff. Who presents to the ED for R- rib/chest pain, increase pain on inspiration. Patient reports having increased pain to her R- ribs and chest on inspiration. CXR: No obvious fracture / bibasilar infiltrates. Per ID RLL HCAP Exacerbation COPD UTI OBS This is my first consult with this pt. 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 Cardiovascular: Yes: HTN, Hyperlipdemia Pulmonary: Yes: COPD Gastrointestinal: Yes: GERD ...: No Heme/Onc: Yes: Anemia, B12 Deficiency Infectious Disease: Yes: C-Diff Psych: Yes: Depression - Advance Directives Advance Directives: Yes: Health Care Proxy - Smoking History Smoking history: Never smoked Have you smoked in the past 12 months: No - Alcohol/Substance Use Hx Alcohol Use: No History of Substance Use: reports: None - Social History ADL: Support Services History of Recent Travel: No History - Admission Reason For Visit: URINARY TRACT INFECTION - Diagnostics X-ray: Report Reviewed (CXR: No obvious fracture / bibasilar infiltrates.) - General Mental Status: Awake and Alert, Able to Follow Commands, Forgetful (Pt does not know why she is here), Vague Attention: Intact Ability to Follow Directions: Fair Head/Neck Control: Fair - Hearing Hearing: Normal Hearing Aide: No With Patient: No Speech Evaluation - Communication Primary Language: [place] Communication: Yes: Within Normal Limits Oral Expression Ability: Yes: No Impairment - Speech Production Able to Make Needs Known: Yes: WNL Intelligibility: Yes: WNL - Speech Characteristics Voice Loudness: Normal Voice Pitch: Yes: Normal Voice Phonatory-based Quality: Yes: Normal Speech Pattern: Normal Speech Clarity: < 100% Nasal Resonance: Normal Articulation: Yes: Precise Rate of Speech: Intact - Language/Auditory Comprehension Follows: Yes: 1 Stage Simple Commands - Language/Verbal Expression Able to Communicate Wants and Needs: Yes: WNL Functional Communication Status: Yes: WNL - Swallow Evaluation/Bedside Assessment Current Nutritional Intake: Thin Liquids, Other (chopped) Oral Secretions: Yes: WFL Dentition: Yes: Edentulous Facial Symmetry at Rest: Symmetrical Facial Symmetry on Retraction: Symmetrical Facial Movement: Controlled Against Resistance Opening: Normal Against Resistance Closing: Normal Pucker Lips: Normal Smile: Normal Lingual Movement: Normal, Symmetric Lingual Speed of Movement: Normal Lingual Movement Strgth Against Opposition: Normal Lingual Movement Characteristics: Normal Velopharyngeal Movement: Normal Laryngeal Elevation: WFL Laryngeal Movement: Able to Palpate Rate of Intake: WFL Bolus Size: WFL Labial Seal: WFL Chewing: Impaired (limited. Edentulous. Impulsive) Oral Prep Time: WFL A-P Transit: WFL Pocketing: None Timing of Swallow: WFL Coughing/Throat Clear: No Change in Voice: No Recommendations - Speech Evaluation, Impression/Plan Impression: Edentulous. Impulsive intake. Swallow is brisk. - Disposition Discharge to: Assisted Facility - Dysphagia Impressions/Plan Dysphagia Impressions: Minimal Impairment *Silent aspiration: cannot be R/O at bedside Dysphagia Treatment Plan: OOB for meals, OOB for 1 h. after meals - Recommendations Diet Consistency: Other (Chopped) Liquids: Thin Liquids
[2018-11-09 15:08] LABS: ANISOCYTOSIS 2+; MACROCYTOSIS 0; PLATELET ESTIMATE NORMAL
[2018-11-09] MEDS: MIRTAZAPINE 15 MG TABLET (FP) PO SCH (22:14)
[2018-11-10] MEDS ORDERED: DEXTROSE 5%-WATER - 50 ML IVPB ONE ×2 (00:49→08:45)
[2018-11-10] MEDS ORDERED: PIPERACILLIN/TAZOBACTAM 3.375 GM VIAL IVPB ONE ×2 (00:49→08:45)
[2018-11-10] MEDS: PIPERACILLIN/TAZOB 3.375 GM 3.375 GM in DEXTROSE 5%-WATER - 50 ML IVPB SCH ×2 (02:14→09:18)
[2018-11-10] MEDS: LACTOBACILLUS ACIDOPHILUS 1 TABLET PO SCH ×3 (05:35→21:24)
[2018-11-10] MEDS ORDERED: VANCOMYCIN 1 GRAM (PRE-DOCKED) 1,000 MG/250 ML BAG IVPB ONE (09:02)
[2018-11-10] MEDS: hydrALAZINE HCL 25 MG TABLET (FP) PO SCH ×2 (09:10→21:24)
[2018-11-10] MEDS: POTASSIUM CHLORIDE TABS 20 MEQ TABLET.ER (FP) PO SCH (09:10)
[2018-11-10] MEDS: FERROUS SO4 325 MG TABLET (FP) PO SCH (09:10)
[2018-11-10] MEDS: DONEPEZIL HCL 10 MG TABLET (FP) PO SCH (09:10)
[2018-11-10] MEDS: FUROSEMIDE 20 MG TABLET (FP) PO SCH (09:10)
[2018-11-10] MEDS: OMEGA-3 ACID ETHYL ESTERS (FATTY-ACIDS) 1 GM CAPSULE (FP) PO SCH ×2 (09:11→21:24)
[2018-11-10] MEDS: HEPARIN NA (PORCINE) 5,000 UNITS/ML 1ML VIAL SQ SCH ×2 (09:27→21:24)
--- NOTE | 2018-11-10 11:22 | PN ---
Progress Note, Physician History of Present Illness: Blood c/s AN x2 GPCCL Awake, alert No complaints No c/o chest pain / dyspnea/ cough Denies dysuria/ hematuria - Current Medication List Current Medications: Active Medications Acetaminophen (Tylenol -) 650 mg PO Q4H PRN PRN Reason: FEVER Albuterol/Ipratropium (Duoneb -) 1 amp NEB Q6H PRN PRN Reason: SHORTNESS OF BREATH Donepezil HCl (Aricept -) [address] [facility] Last Admin: 11/10/18 09:10 Dose: 10 mg Ferrous Sulfate (Feosol -) [address] [facility] Last Admin: 11/10/18 09:10 Dose: 325 mg Furosemide (Lasix -) [address] [facility] Last Admin: 11/10/18 09:10 Dose: 20 mg Heparin Sodium (Porcine) (Heparin -) 5,[address] [facility] Last Admin: 11/10/18 09:27 Dose: 5,000 unit Hydralazine HCl (Apresoline -) [address] [facility] Last Admin: 11/10/18 09:10 Dose: 25 mg Piperacillin Sod/Tazobactam (Sod 3.375 gm/ Dextrose) 50 mls @ 100 mls/hr IVPB Q8H-IV [facility]; Protocol Last Admin: 11/10/18 09:18 Dose: 100 mls/hr Lactobacillus Acidophilus (Bacid -) [address] [facility] Last Admin: 11/10/18 05:35 Dose: 1 tab Metoprolol Succinate (Toprol Xl -) [address] [facility] Last Admin: 11/10/18 09:10 Dose: 50 mg Mirtazapine (Remeron -) 7.[address] [facility] Last Admin: 11/09/18 22:14 Dose: 7.5 mg Kwtet-6-[id number] Ethyl Esters (Lovaza -) [address] [facility] Last Admin: 11/10/18 09:11 Dose: 2 gm Potassium Chloride (K-Dur -) [address] [facility] Last Admin: 11/10/18 09:10 Dose: 20 meq - Objective Vital Signs: Vital Signs Temperature 98.5 F 11/10/18 08:35 Pulse Rate 71 11/10/18 08:35 Respiratory Rate 18 11/10/18 09:00 Blood Pressure 135/63 11/10/18 08:35 O2 Sat by Pulse Oximetry (%) 93 L 11/10/18 09:00 Constitutional: Yes: No Distress Eyes: Yes: Conjunctiva Clear Cardiovascular: Yes: Regular Rate and Rhythm, S1, S2 Respiratory: Yes: CTA Bilaterally Gastrointestinal: Yes: Normal Bowel Sounds, Soft. No: Tenderness Edema: No Labs: CBC, BMP 11/09/18 06:30 11/09/18 06:30 INR, PTT INR 1.03 (0.83-1.09) 11/08/18 02:03 Assessment/Plan RLL HCAP COPD exacerbation UTI E coli + BC GPCCL ? significance Repeat BC Vancomycin x 1 dose Substitute ceftriaxone for UTI
--- NOTE | 2018-11-10 11:33 | PN ---
Progress Note (short form) - Note Progress Note: Reports feeling OK. No CP or SOB. No acute events overnight. Intake & Output 11/07/18 11/08/18 11/09/18 11/10/18 23:59 23:59 23:59 23:59 Intake Total 1000 780 150 Balance 1000 780 150 Weight 142 lb Last Vital Signs Temp Pulse Resp BP Pulse Ox 98.5 F 71 18 135/63 93 L 11/10/18 08:35 11/10/18 08:35 11/10/18 09:00 11/10/18 08:35 11/10/18 09:00 Active Medications Acetaminophen (Tylenol -) 650 mg PO Q4H PRN PRN Reason: FEVER Albuterol/Ipratropium (Duoneb -) 1 amp NEB Q6H PRN PRN Reason: SHORTNESS OF BREATH Donepezil HCl (Aricept -) 10 mg PO DAILY [facility] Last Admin: 11/10/18 09:10 Dose: 10 mg Ferrous Sulfate (Feosol -) 325 mg PO DAILY [facility] Last Admin: 11/10/18 09:10 Dose: 325 mg Furosemide (Lasix -) 20 mg PO DAILY [facility] Last Admin: 11/10/18 09:10 Dose: 20 mg Heparin Sodium (Porcine) (Heparin -) 5,000 unit SQ BID [facility] Last Admin: 11/10/18 09:27 Dose: 5,000 unit Hydralazine HCl (Apresoline -) 25 mg PO BID [facility] Last Admin: 11/10/18 09:10 Dose: 25 mg Ceftriaxone Sodium (Ceftriaxone 2 Gm-D5w Bag) 2 gm in 50 mls @ 100 mls/hr IVPB DAILY [facility]; Protocol Lactobacillus Acidophilus (Bacid -) 1 tab PO TID [facility] Last Admin: 11/10/18 05:35 Dose: 1 tab Metoprolol Succinate (Toprol Xl -) 50 mg PO DAILY [facility] Last Admin: 11/10/18 09:10 Dose: 50 mg Mirtazapine (Remeron -) 7.5 mg PO HS [facility] Last Admin: 11/09/18 22:14 Dose: 7.5 mg Bzhsa-8-Gacc Ethyl Esters (Lovaza -) 2 gm PO BID [facility] Last Admin: 11/10/18 09:11 Dose: 2 gm Potassium Chloride (K-Dur -) 20 meq PO DAILY [facility] Last Admin: 11/10/18 09:10 Dose: 20 meq Constitutional: Yes: Well Nourished, No Distress Eyes: Yes: Conjunctiva Clear, EOM Intact HENT: Yes: Atraumatic, Normocephalic Neck: Yes: Supple, Trachea Midline Cardiovascular: Yes: Regular Rate and Rhythm Respiratory: Yes: Cough, Diminished, Rhonchi. No: Accessory Muscle Use, Rales, SOB, SOB on Exertion, Stridor, Tachypnea, Wheezes ...Inspection: Yes: WNL ...Clubbing: No Gastrointestinal: Yes: Normal Bowel Sounds, Soft Renal/: Yes: WNL Musculoskeletal: Yes: WNL Extremities: Yes: WNL Edema: No Peripheral Pulses WNL: Yes Integumentary: Yes: WNL Neurological: Yes: WNL, Alert, Oriented ...Motor Strength: WNL Psychiatric: Yes: WNL, Alert, Oriented Labs: Problem List - Problems (1) Alzheimer's dementia Code(s): G30.9 - ALZHEIMER'S DISEASE, UNSPECIFIED; F02.80 - DEMENTIA IN OTH DISEASES CLASSD ELSWHR W/O BEHAVRL DISTURB (2) COPD (chronic obstructive pulmonary disease) Code(s): J44.9 - CHRONIC OBSTRUCTIVE PULMONARY DISEASE, UNSPECIFIED (3) Depression Code(s): F32.9 - MAJOR DEPRESSIVE DISORDER, SINGLE EPISODE, UNSPECIFIED (4) GERD (gastroesophageal reflux disease) Code(s): K21.9 - GASTRO-ESOPHAGEAL REFLUX DISEASE WITHOUT ESOPHAGITIS (5) HTN (hypertension) Code(s): I10 - ESSENTIAL (PRIMARY) HYPERTENSION (6) Pneumonia Code(s): J18.9 - PNEUMONIA, UNSPECIFIED ORGANISM (7) Rib pain on right side Code(s): R07.81 - PLEURODYNIA Assessment/Plan ABX Per ID O2 as needed VTE prophylaxis Incentive Spirometry BD TX No indication for systemic steroids Dr Ramirez Problem List - Problems (1) Alzheimer's dementia Code(s): G30.9 - ALZHEIMER'S DISEASE, UNSPECIFIED; F02.80 - DEMENTIA IN OTH DISEASES CLASSD ELSWHR W/O BEHAVRL DISTURB (2) COPD (chronic obstructive pulmonary disease) Code(s): J44.9 - CHRONIC OBSTRUCTIVE PULMONARY DISEASE, UNSPECIFIED (3) Depression Code(s): F32.9 - MAJOR DEPRESSIVE DISORDER, SINGLE EPISODE, UNSPECIFIED (4) GERD (gastroesophageal reflux disease) Code(s): K21.9 - GASTRO-ESOPHAGEAL REFLUX DISEASE WITHOUT ESOPHAGITIS (5) HTN (hypertension) Code(s): I10 - ESSENTIAL (PRIMARY) HYPERTENSION (6) Pneumonia Code(s): J18.9 - PNEUMONIA, UNSPECIFIED ORGANISM (7) Rib pain on right side Code(s): R07.81 - PLEURODYNIA
--- NOTE | 2018-11-10 11:36 | PN ---
Progress Note, Physician Chief Complaint: patient seen and examined positive blood culture getting vancomycin dose - Current Medication List Current Medications: Active Medications Acetaminophen (Tylenol -) 650 mg PO Q4H PRN PRN Reason: FEVER Albuterol/Ipratropium (Duoneb -) 1 amp NEB Q6H PRN PRN Reason: SHORTNESS OF BREATH Donepezil HCl (Aricept -) 10 mg PO DAILY [facility] Last Admin: 11/10/18 09:10 Dose: 10 mg Ferrous Sulfate (Feosol -) 325 mg PO DAILY [facility] Last Admin: 11/10/18 09:10 Dose: 325 mg Furosemide (Lasix -) 20 mg PO DAILY [facility] Last Admin: 11/10/18 09:10 Dose: 20 mg Heparin Sodium (Porcine) (Heparin -) 5,000 unit SQ BID [facility] Last Admin: 11/10/18 09:27 Dose: 5,000 unit Hydralazine HCl (Apresoline -) 25 mg PO BID [facility] Last Admin: 11/10/18 09:10 Dose: 25 mg Ceftriaxone Sodium (Ceftriaxone 2 Gm-D5w Bag) 2 gm in 50 mls @ 100 mls/hr IVPB DAILY [facility]; Protocol Lactobacillus Acidophilus (Bacid -) 1 tab PO TID [facility] Last Admin: 11/10/18 05:35 Dose: 1 tab Metoprolol Succinate (Toprol Xl -) 50 mg PO DAILY [facility] Last Admin: 11/10/18 09:10 Dose: 50 mg Mirtazapine (Remeron -) 7.5 mg PO HS [facility] Last Admin: 11/09/18 22:14 Dose: 7.5 mg Yerze-7-Wrgd Ethyl Esters (Lovaza -) 2 gm PO BID [facility] Last Admin: 11/10/18 09:11 Dose: 2 gm Potassium Chloride (K-Dur -) 20 meq PO DAILY [facility] Last Admin: 11/10/18 09:10 Dose: 20 meq - Objective Vital Signs: Vital Signs Temperature 98.5 F 11/10/18 08:35 Pulse Rate 71 11/10/18 08:35 Respiratory Rate 18 11/10/18 09:00 Blood Pressure 135/63 11/10/18 08:35 O2 Sat by Pulse Oximetry (%) 93 L 11/10/18 09:00 Constitutional: Yes: Calm Cardiovascular: Yes: Regular Rate and Rhythm, S1, S2 Respiratory: Yes: Diminished Gastrointestinal: Yes: Normal Bowel Sounds, Soft Edema: No Neurological: Yes: Alert Labs: CBC, BMP 11/09/18 06:30 11/09/18 06:30 INR, PTT INR 1.03 (0.83-1.09) 11/08/18 02:03 Problem List - Problems (1) Alzheimer's dementia Assessment/Plan: aricept Code(s): G30.9 - ALZHEIMER'S DISEASE, UNSPECIFIED; F02.80 - DEMENTIA IN OTH DISEASES CLASSD ELSWHR W/O BEHAVRL DISTURB (2) Pneumonia Assessment/Plan: iv abx zosyn change to rocephin urine legionella negative swallow eval noted dvt ppx Code(s): J18.9 - PNEUMONIA, UNSPECIFIED ORGANISM (3) Depression Assessment/Plan: remeron Code(s): F32.9 - MAJOR DEPRESSIVE DISORDER, SINGLE EPISODE, UNSPECIFIED (4) HTN (hypertension) Assessment/Plan: hydralazine Code(s): I10 - ESSENTIAL (PRIMARY) HYPERTENSION Assessment/Plan blood culture GPcocci in cluster repeat blood culture pending vancomycin on dose uti on rocephin Microbiology 11/08/18 04:05 Urine - Urine Clean Catch Urine Culture - Final Escherichia Coli
[2018-11-10] MEDS ORDERED: DEXTROSE 5%-WATER 100 ML IVPB ONE (11:40)
[2018-11-10] MEDS: CEFTRIAXONE 2 GM in DEXTROSE 5%-WATER 100 ML IVPB SCH (11:55)
[2018-11-10] MEDS ORDERED: PT OWN MED DRAWER 7, Y5N ONE ×2 (20:55→22:31)
[2018-11-10] MEDS: MIRTAZAPINE 15 MG TABLET (FP) PO SCH (21:25)
[2018-11-11] MEDS: LACTOBACILLUS ACIDOPHILUS 1 TABLET PO SCH ×3 (05:55→22:55)
[2018-11-11] MEDS ORDERED: INSULIN (NOVOLOG) ASPART 100 UNITS/ML 10ML VIAL ONE (06:42)
[2018-11-11 07:28] LABS: BASO % 0.7 % (0-2.0); EOS % 3.9 % (0-4.5); HEMATOCRIT 38.2 % (32.4-45.2); HEMOGLOBIN 12.7 GM/dL (10.7-15.3); LYMPH % 10.1 % (8-40); MCH 32.1 pg (25.7-33.7); MCHC 33.2 g/dl (32.0-36.0); MEAN CELL VOLUME 96.5 fl (80-96); MEAN PLT VOLUME 7.3 fl (7.5-11.1); MONO % 10.8 % (3.8-10.2); NEUT % 74.5 % (42.8-82.8); PLATELET COUNT 209 K/MM3 (134-434); RBC 3.96 M/mm3 (3.60-5.2); RDW 12.9 % (11.6-15.6); WHITE BLOOD COUNT 5.1 K/mm3 (4.0-10.0)
[2018-11-11 07:47] LABS: ALK PHOS 78 U/L (45-117); ANION GAP 10 MMOL/L (8-16); BILIRUBIN,TOTAL 0.4 mg/dL (0.2-1); BLOOD UREA NITROGEN 13 mg/dL (7-18); CALCIUM 8.3 mg/dL (8.5-10.1); CHLORIDE 108 mmol/L (98-107); CO2 24 mmol/L (21-32); CREATININE 0.7 mg/dL (0.55-1.3); GLUCOSE,RANDOM 92 mg/dL (74-106); SGOT/AST 11 U/L (15-37); SGPT/ALT 14 U/L (13-61); SODIUM 142 mmol/L (136-145); TOT PROT 6.2 g/dl (6.4-8.2)
[2018-11-11] MEDS ORDERED: DEXTROSE 5%-WATER 100 ML IVPB ONE (09:44)
[2018-11-11] MEDS: OMEGA-3 ACID ETHYL ESTERS (FATTY-ACIDS) 1 GM CAPSULE (FP) PO SCH ×2 (10:22→22:55)
[2018-11-11] MEDS: FERROUS SO4 325 MG TABLET (FP) PO SCH (10:22)
[2018-11-11] MEDS: hydrALAZINE HCL 25 MG TABLET (FP) PO SCH ×2 (10:22→22:55)
[2018-11-11] MEDS: DONEPEZIL HCL 10 MG TABLET (FP) PO SCH (10:22)
[2018-11-11] MEDS: POTASSIUM CHLORIDE TABS 20 MEQ TABLET.ER (FP) PO SCH (10:22)
[2018-11-11] MEDS: CEFTRIAXONE 2 GM in DEXTROSE 5%-WATER 100 ML IVPB SCH (10:22)
[2018-11-11] MEDS: FUROSEMIDE 20 MG TABLET (FP) PO SCH (10:22)
[2018-11-11] MEDS: HEPARIN NA (PORCINE) 5,000 UNITS/ML 1ML VIAL SQ SCH ×2 (10:24→22:56)
--- NOTE | 2018-11-11 12:05 | PN ---
Progress Note, Physician History of Present Illness: Blood c/s AN x2 GPCCL not yet identified Awake, alert OOB in chair No complaints No c/o chest pain / dyspnea/ cough Denies dysuria/ hematuria - Current Medication List Current Medications: Active Medications Acetaminophen (Tylenol -) 650 mg PO Q4H PRN PRN Reason: FEVER Albuterol/Ipratropium (Duoneb -) 1 amp NEB Q6H PRN PRN Reason: SHORTNESS OF BREATH Donepezil HCl (Aricept -) 10 mg PO DAILY [facility] Last Admin: 11/11/18 10:22 Dose: 10 mg Ferrous Sulfate (Feosol -) 325 mg PO DAILY [facility] Last Admin: 11/11/18 10:22 Dose: 325 mg Furosemide (Lasix -) 20 mg PO DAILY [facility] Last Admin: 11/11/18 10:22 Dose: 20 mg Heparin Sodium (Porcine) (Heparin -) 5,000 unit SQ BID [facility] Last Admin: 11/11/18 10:24 Dose: 5,000 unit Hydralazine HCl (Apresoline -) 25 mg PO BID [facility] Last Admin: 11/11/18 10:22 Dose: 25 mg Ceftriaxone Sodium 2 gm/ (Dextrose) 100 mls @ 100 mls/hr IVPB DAILY [facility]; Protocol Last Admin: 11/11/18 10:22 Dose: 100 mls/hr Lactobacillus Acidophilus (Bacid -) 1 tab PO TID [facility] Last Admin: 11/11/18 05:55 Dose: 1 tab Metoprolol Succinate (Toprol Xl -) 50 mg PO DAILY [facility] Last Admin: 11/11/18 10:22 Dose: 50 mg Mirtazapine (Remeron -) 7.5 mg PO HS [facility] Last Admin: 11/10/18 21:25 Dose: 7.5 mg Nvfkp-3-Ezjo Ethyl Esters (Lovaza -) 2 gm PO BID [facility] Last Admin: 11/11/18 10:22 Dose: 2 gm Potassium Chloride (K-Dur -) 20 meq PO DAILY [facility] Last Admin: 11/11/18 10:22 Dose: 20 meq - Objective Vital Signs: Vital Signs Temperature 97.7 F 11/11/18 10:00 Pulse Rate 80 11/11/18 10:00 Respiratory Rate 20 11/11/18 10:00 Blood Pressure 129/85 11/11/18 10:00 O2 Sat by Pulse Oximetry (%) 96 11/10/18 21:00 Constitutional: Yes: No Distress Eyes: Yes: Conjunctiva Clear Cardiovascular: Yes: Regular Rate and Rhythm, S1, S2 Respiratory: Yes: CTA Bilaterally Gastrointestinal: Yes: Normal Bowel Sounds, Soft. No: Tenderness Edema: No Labs: CBC, BMP 11/11/18 06:30 11/11/18 06:30 INR, PTT INR 1.03 (0.83-1.09) 11/08/18 02:03 Assessment/Plan RLL HCAP COPD exacerbation UTI E coli + BC GPCCL ? significance final identification pending Repeat BC prelim no growth Redose vancomycin Continue ceftriaxone for UTI
[2018-11-11] MEDS ORDERED: VANCOMYCIN 1 GRAM (PRE-DOCKED) 1,000 MG/250 ML BAG IVPB ONE (12:30)
[2018-11-11] MEDS ORDERED: VANCOMYCIN 1,000 MG in DEXTROSE 5%-WATER - 250 ML IVPB ONE (12:30)
--- NOTE | 2018-11-11 14:28 | PN ---
Progress Note, Physician Chief Complaint: AMS UTI Sepsis History of Present Illness: NAD Seen by ID On IV abx BC pending - Current Medication List Current Medications: Active Medications Acetaminophen (Tylenol -) 650 mg PO Q4H PRN PRN Reason: FEVER Albuterol/Ipratropium (Duoneb -) 1 amp NEB Q6H PRN PRN Reason: SHORTNESS OF BREATH Donepezil HCl (Aricept -) 10 mg PO DAILY [facility] Last Admin: 11/11/18 10:22 Dose: 10 mg Ferrous Sulfate (Feosol -) 325 mg PO DAILY [facility] Last Admin: 11/11/18 10:22 Dose: 325 mg Furosemide (Lasix -) 20 mg PO DAILY [facility] Last Admin: 11/11/18 10:22 Dose: 20 mg Heparin Sodium (Porcine) (Heparin -) 5,000 unit SQ BID [facility] Last Admin: 11/11/18 10:24 Dose: 5,000 unit Hydralazine HCl (Apresoline -) 25 mg PO BID [facility] Last Admin: 11/11/18 10:22 Dose: 25 mg Ceftriaxone Sodium 2 gm/ (Dextrose) 100 mls @ 100 mls/hr IVPB DAILY [facility]; Protocol Last Admin: 11/11/18 10:22 Dose: 100 mls/hr Lactobacillus Acidophilus (Bacid -) 1 tab PO TID [facility] Last Admin: 11/11/18 13:19 Dose: 1 tab Metoprolol Succinate (Toprol Xl -) 50 mg PO DAILY [facility] Last Admin: 11/11/18 10:22 Dose: 50 mg Mirtazapine (Remeron -) 7.5 mg PO HS [facility] Last Admin: 11/10/18 21:25 Dose: 7.5 mg Nnnql-7-Ibqk Ethyl Esters (Lovaza -) 2 gm PO BID [facility] Last Admin: 11/11/18 10:22 Dose: 2 gm Potassium Chloride (K-Dur -) 20 meq PO DAILY [facility] Last Admin: 11/11/18 10:22 Dose: 20 meq - Objective Vital Signs: Vital Signs Temperature 98 F 11/11/18 13:36 Pulse Rate 80 11/11/18 13:36 Respiratory Rate 20 11/11/18 13:36 Blood Pressure 156/89 11/11/18 13:36 O2 Sat by Pulse Oximetry (%) 96 11/10/18 21:00 Constitutional: Yes: Well Nourished, No Distress, Calm Cardiovascular: Yes: Regular Rate and Rhythm Respiratory: Yes: Regular Gastrointestinal: Yes: Normal Bowel Sounds, Soft Genitourinary: Yes: WNL Musculoskeletal: Yes: Muscle Weakness Edema: No Peripheral Pulses WNL: Yes Neurological: Yes: Alert, Pre-Existing Deficit Psychiatric: Yes: Alert Labs: CBC, BMP 11/11/18 06:30 11/11/18 06:30 INR, PTT INR 1.03 (0.83-1.09) 11/08/18 02:03 Problem List - Problems (1) Alzheimer's dementia Assessment/Plan: -Chronic -On aricept Code(s): G30.9 - ALZHEIMER'S DISEASE, UNSPECIFIED; F02.80 - DEMENTIA IN OTH DISEASES CLASSD ELSWHR W/O BEHAVRL DISTURB (2) Pneumonia Assessment/Plan: -ID and pulmonary on board -IV abx -Legionella negative -Bronchodilators -afebrile Code(s): J18.9 - PNEUMONIA, UNSPECIFIED ORGANISM (3) UTI (urinary tract infection) Assessment/Plan: -cultures: Microbiology 11/08/18 01:52 Blood - Peripheral Venous Blood Culture - Preliminary Pending Organism 11/08/18 01:52 Blood - Peripheral Venous Blood Culture - Preliminary Pending Organism 11/10/18 09:15 Blood - Peripheral Venous Blood Culture - Preliminary NO GROWTH OBTAINED AFTER 24 HOURS, INCUBATION TO CONTINUE FOR 4 DAYS. 11/10/18 09:15 Blood - Peripheral Venous Blood Culture - Preliminary NO GROWTH OBTAINED AFTER 24 HOURS, INCUBATION TO CONTINUE FOR 4 DAYS. 11/08/18 04:05 Urine - Urine Clean Catch Urine Culture - Final Escherichia Coli 11/08/18 18:34 Urine For Antigen Detection Legionella Antigen - Final 11/08/18 18:34 Urine For Antigen Detection Streptococcus pneumoniae Antigen (M - Final -ID on board -On IV abx -afebrile Code(s): N39.0 - URINARY TRACT INFECTION, SITE NOT SPECIFIED Qualifiers: Urinary tract infection type: site unspecified Hematuria presence: without hematuria Qualified Code(s): N39.0 - Urinary tract infection, site not specified (4) Sepsis Assessment/Plan: -afebrile now -On IV abx -ID on board Code(s): A41.9 - SEPSIS, UNSPECIFIED ORGANISM (5) Metabolic encephalopathy Assessment/Plan: -2/ to UTI Code(s): G93.41 - METABOLIC ENCEPHALOPATHY Assessment/Plan see problem list Physical therapy
--- NOTE | 2018-11-11 14:41 | PN ---
Progress Note (short form) - Note Progress Note: PULMONARY Feels better today. +nonproductive cough. No fevers or chills. Vital Signs Period Temp Pulse Resp BP Sys/Amador Pulse Ox Last 24 Hr 97.7 F-98.4 F 67-80 20-20 127-156/68-89 95-96 Gen: NAD in chair Heart: RRR Lung: decreased breath sounds at the bases Abd: soft, nontender Ext: no edema CBC, BMP 11/11/18 06:30 11/11/18 06:30 Active Medications Acetaminophen (Tylenol -) 650 mg PO Q4H PRN PRN Reason: FEVER Albuterol/Ipratropium (Duoneb -) 1 amp NEB Q6H PRN PRN Reason: SHORTNESS OF BREATH Donepezil HCl (Aricept -) 10 mg PO DAILY [facility] Last Admin: 11/11/18 10:22 Dose: 10 mg Ferrous Sulfate (Feosol -) 325 mg PO DAILY [facility] Last Admin: 11/11/18 10:22 Dose: 325 mg Furosemide (Lasix -) 20 mg PO DAILY [facility] Last Admin: 11/11/18 10:22 Dose: 20 mg Heparin Sodium (Porcine) (Heparin -) 5,000 unit SQ BID [facility] Last Admin: 11/11/18 10:24 Dose: 5,000 unit Hydralazine HCl (Apresoline -) 25 mg PO TID [facility] Ceftriaxone Sodium 2 gm/ (Dextrose) 100 mls @ 100 mls/hr IVPB DAILY [facility]; Protocol Last Admin: 11/11/18 10:22 Dose: 100 mls/hr Lactobacillus Acidophilus (Bacid -) 1 tab PO TID [facility] Last Admin: 11/11/18 13:19 Dose: 1 tab Metoprolol Succinate (Toprol Xl -) 50 mg PO DAILY [facility] Last Admin: 11/11/18 10:22 Dose: 50 mg Mirtazapine (Remeron -) 7.5 mg PO HS [facility] Last Admin: 11/10/18 21:25 Dose: 7.5 mg Zkguc-4-Woan Ethyl Esters (Lovaza -) 2 gm PO BID [facility] Last Admin: 11/11/18 10:22 Dose: 2 gm Potassium Chloride (K-Dur -) 20 meq PO DAILY [facility] Last Admin: 11/11/18 10:22 Dose: 20 meq A/P Pneumonia UTI COPD Dementia - continue antibiotics per ID - O2 to keep SpO2 >90% - inhaled bronchodilators - DVT prophylaxis
[2018-11-11] MEDS: MIRTAZAPINE 15 MG TABLET (FP) PO SCH (22:55)
[2018-11-12] MEDS: hydrALAZINE HCL 25 MG TABLET (FP) PO SCH ×3 (05:59→21:28)
[2018-11-12] MEDS: LACTOBACILLUS ACIDOPHILUS 1 TABLET PO SCH ×3 (05:59→21:28)
--- NOTE | 2018-11-12 09:08 | PN ---
Progress Note (short form) - Note Progress Note: Reports feeling OK, slow overall improvement. No CP or SOB. No acute events overnight. Intake & Output 11/09/18 11/10/18 11/11/18 11/12/18 23:59 23:59 23:59 23:59 Intake Total 486 280 3026 150 Balance 131 610 7656 150 Last Vital Signs Temp Pulse Resp BP Pulse Ox 98.7 F 73 20 148/76 96 11/12/18 06:00 11/12/18 06:00 11/12/18 06:00 11/12/18 06:00 11/11/18 21:00 Active Medications Acetaminophen (Tylenol -) 650 mg PO Q4H PRN PRN Reason: FEVER Albuterol/Ipratropium (Duoneb -) 1 amp NEB Q6H PRN PRN Reason: SHORTNESS OF BREATH Donepezil HCl (Aricept -) 10 mg PO DAILY [facility] Last Admin: 11/11/18 10:22 Dose: 10 mg Ferrous Sulfate (Feosol -) 325 mg PO DAILY [facility] Last Admin: 11/11/18 10:22 Dose: 325 mg Furosemide (Lasix -) 20 mg PO DAILY [facility] Last Admin: 11/11/18 10:22 Dose: 20 mg Heparin Sodium (Porcine) (Heparin -) 5,000 unit SQ BID [facility] Last Admin: 11/11/18 22:56 Dose: 5,000 unit Hydralazine HCl (Apresoline -) 25 mg PO TID [facility] Last Admin: 11/12/18 05:59 Dose: 25 mg Ceftriaxone Sodium 2 gm/ (Dextrose) 100 mls @ 100 mls/hr IVPB DAILY [facility]; Protocol Last Admin: 11/11/18 10:22 Dose: 100 mls/hr Lactobacillus Acidophilus (Bacid -) 1 tab PO TID [facility] Last Admin: 11/12/18 05:59 Dose: 1 tab Metoprolol Succinate (Toprol Xl -) 50 mg PO DAILY [facility] Last Admin: 11/11/18 10:22 Dose: 50 mg Mirtazapine (Remeron -) 7.5 mg PO HS [facility] Last Admin: 11/11/18 22:55 Dose: 7.5 mg [id number] Ethyl Esters (Lovaza -) 2 gm PO BID [facility] Last Admin: 11/11/18 22:55 Dose: 2 gm Potassium Chloride (K-Dur -) 20 meq PO DAILY [facility] Last Admin: 11/11/18 10:22 Dose: 20 meq Constitutional: Yes: Well Nourished, No Distress Eyes: Yes: Conjunctiva Clear, EOM Intact HENT: Yes: Atraumatic, Normocephalic Neck: Yes: Supple, Trachea Midline Cardiovascular: Yes: Regular Rate and Rhythm Respiratory: Yes: Cough, Diminished, Rhonchi. No: Accessory Muscle Use, Rales, SOB, SOB on Exertion, Stridor, Tachypnea, Wheezes ...Inspection: Yes: WNL ...Clubbing: No Gastrointestinal: Yes: Normal Bowel Sounds, Soft Renal/: Yes: WNL Musculoskeletal: Yes: WNL Extremities: Yes: WNL Edema: No Peripheral Pulses WNL: Yes Integumentary: Yes: WNL Neurological: Yes: WNL, Alert, Oriented ...Motor Strength: WNL Psychiatric: Yes: WNL, Alert, Oriented Labs: Problem List - Problems (1) Alzheimer's dementia Code(s): G30.9 - ALZHEIMER'S DISEASE, UNSPECIFIED; F02.80 - DEMENTIA IN OTH DISEASES CLASSD ELSWHR W/O BEHAVRL DISTURB (2) COPD (chronic obstructive pulmonary disease) Code(s): J44.9 - CHRONIC OBSTRUCTIVE PULMONARY DISEASE, UNSPECIFIED (3) Depression Code(s): F32.9 - MAJOR DEPRESSIVE DISORDER, SINGLE EPISODE, UNSPECIFIED (4) GERD (gastroesophageal reflux disease) Code(s): K21.9 - GASTRO-ESOPHAGEAL REFLUX DISEASE WITHOUT ESOPHAGITIS (5) HTN (hypertension) Code(s): I10 - ESSENTIAL (PRIMARY) HYPERTENSION (6) Pneumonia Code(s): J18.9 - PNEUMONIA, UNSPECIFIED ORGANISM (7) Rib pain on right side Code(s): R07.81 - PLEURODYNIA Assessment/Plan ABX Per ID O2 as needed VTE prophylaxis Incentive Spirometry BD TX No indication for systemic steroids Dr Ramirez Problem List - Problems (1) Alzheimer's dementia Code(s): G30.9 - ALZHEIMER'S DISEASE, UNSPECIFIED; F02.80 - DEMENTIA IN OTH DISEASES CLASSD ELSWHR W/O BEHAVRL DISTURB (2) COPD (chronic obstructive pulmonary disease) Code(s): J44.9 - CHRONIC OBSTRUCTIVE PULMONARY DISEASE, UNSPECIFIED (3) Depression Code(s): F32.9 - MAJOR DEPRESSIVE DISORDER, SINGLE EPISODE, UNSPECIFIED (4) GERD (gastroesophageal reflux disease) Code(s): K21.9 - GASTRO-ESOPHAGEAL REFLUX DISEASE WITHOUT ESOPHAGITIS (5) HTN (hypertension) Code(s): I10 - ESSENTIAL (PRIMARY) HYPERTENSION (6) Pneumonia Code(s): J18.9 - PNEUMONIA, UNSPECIFIED ORGANISM (7) Rib pain on right side Code(s): R07.81 - PLEURODYNIA
[2018-11-12] MEDS ORDERED: DEXTROSE 5%-WATER 100 ML IVPB ONE (09:19)
[2018-11-12] MEDS: CEFTRIAXONE 2 GM in DEXTROSE 5%-WATER 100 ML IVPB SCH (09:28)
[2018-11-12] MEDS: OMEGA-3 ACID ETHYL ESTERS (FATTY-ACIDS) 1 GM CAPSULE (FP) PO SCH ×2 (09:28→21:30)
[2018-11-12] MEDS: DONEPEZIL HCL 10 MG TABLET (FP) PO SCH (09:29)
[2018-11-12] MEDS: HEPARIN NA (PORCINE) 5,000 UNITS/ML 1ML VIAL SQ SCH ×2 (09:29→21:30)
[2018-11-12] MEDS: FERROUS SO4 325 MG TABLET (FP) PO SCH (09:29)
[2018-11-12] MEDS: POTASSIUM CHLORIDE TABS 20 MEQ TABLET.ER (FP) PO SCH (09:29)
[2018-11-12] MEDS: FUROSEMIDE 20 MG TABLET (FP) PO SCH (09:29)
--- NOTE | 2018-11-12 10:35 | PN ---
Progress Note, Physician Chief Complaint: AMS UTI Sepsis History of Present Illness: NAD Seen by ID On IV abx BC/uc: Microbiology 11/10/18 09:15 Blood - Peripheral Venous Blood Culture - Preliminary NO GROWTH OBTAINED AFTER 48 HOURS, INCUBATION TO CONTINUE FOR 3 DAYS. 11/10/18 09:15 Blood - Peripheral Venous Blood Culture - Preliminary NO GROWTH OBTAINED AFTER 48 HOURS, INCUBATION TO CONTINUE FOR 3 DAYS. 11/08/18 01:52 Blood - Peripheral Venous Blood Culture - Preliminary Anaerobic Cocci 11/08/18 01:52 Blood - Peripheral Venous Blood Culture - Preliminary Anaerobic Cocci 11/08/18 04:05 Urine - Urine Clean Catch Urine Culture - Final Escherichia Coli 11/08/18 18:34 Urine For Antigen Detection Legionella Antigen - Final 11/08/18 18:34 Urine For Antigen Detection Streptococcus pneumoniae Antigen (M - Final - Current Medication List Current Medications: Active Medications Acetaminophen (Tylenol -) 650 mg PO Q4H PRN PRN Reason: FEVER Albuterol/Ipratropium (Duoneb -) 1 amp NEB Q6H PRN PRN Reason: SHORTNESS OF BREATH Donepezil HCl (Aricept -) 10 mg PO DAILY [facility] Last Admin: 11/12/18 09:29 Dose: 10 mg Ferrous Sulfate (Feosol -) 325 mg PO DAILY [facility] Last Admin: 11/12/18 09:29 Dose: 325 mg Furosemide (Lasix -) 20 mg PO DAILY [facility] Last Admin: 11/12/18 09:29 Dose: 20 mg Heparin Sodium (Porcine) (Heparin -) 5,000 unit SQ BID [facility] Last Admin: 11/12/18 09:29 Dose: 5,000 unit Hydralazine HCl (Apresoline -) 25 mg PO TID [facility] Last Admin: 11/12/18 05:59 Dose: 25 mg Ceftriaxone Sodium 2 gm/ (Dextrose) 100 mls @ 100 mls/hr IVPB DAILY [facility]; Protocol Last Admin: 11/12/18 09:28 Dose: 100 mls/hr Lactobacillus Acidophilus (Bacid -) 1 tab PO TID [facility] Last Admin: 11/12/18 05:59 Dose: 1 tab Metoprolol Succinate (Toprol Xl -) 50 mg PO DAILY [facility] Last Admin: 11/12/18 09:29 Dose: 50 mg Mirtazapine (Remeron -) 7.5 mg PO HS [facility] Last Admin: 11/11/18 22:55 Dose: 7.5 mg [id number] Ethyl Esters (Lovaza -) 2 gm PO BID [facility] Last Admin: 11/12/18 09:28 Dose: 2 gm Potassium Chloride (K-Dur -) 20 meq PO DAILY [facility] Last Admin: 11/12/18 09:29 Dose: 20 meq - Objective Vital Signs: Vital Signs Temperature 98.6 F 11/12/18 10:00 Pulse Rate 96 H 11/12/18 10:00 Respiratory Rate 20 11/12/18 10:00 Blood Pressure 136/77 11/12/18 10:00 O2 Sat by Pulse Oximetry (%) 96 11/11/18 21:00 Constitutional: Yes: Well Nourished, No Distress, Calm Cardiovascular: Yes: Regular Rate and Rhythm Respiratory: Yes: Regular Gastrointestinal: Yes: Normal Bowel Sounds, Soft Genitourinary: Yes: WNL Musculoskeletal: Yes: Muscle Weakness Extremities: Yes: WNL Edema: No Peripheral Pulses WNL: Yes Neurological: Yes: Alert, Pre-Existing Deficit Psychiatric: Yes: Alert Labs: CBC, BMP 11/11/18 06:30 11/11/18 06:30 INR, PTT INR 1.03 (0.83-1.09) 11/08/18 02:03 Problem List - Problems (1) Alzheimer's dementia Assessment/Plan: -Chronic -On aricept Code(s): G30.9 - ALZHEIMER'S DISEASE, UNSPECIFIED; F02.80 - DEMENTIA IN OTH DISEASES CLASSD ELSWHR W/O BEHAVRL DISTURB (2) Pneumonia Assessment/Plan: -ID and pulmonary on board -IV abx -Legionella negative -Bronchodilators -afebrile Code(s): J18.9 - PNEUMONIA, UNSPECIFIED ORGANISM (3) UTI (urinary tract infection) Assessment/Plan: -cultures: Microbiology 11/08/18 01:52 Blood - Peripheral Venous Blood Culture - Preliminary Pending Organism 11/08/18 01:52 Blood - Peripheral Venous Blood Culture - Preliminary Pending Organism 11/10/18 09:15 Blood - Peripheral Venous Blood Culture - Preliminary NO GROWTH OBTAINED AFTER 24 HOURS, INCUBATION TO CONTINUE FOR 4 DAYS. 11/10/18 09:15 Blood - Peripheral Venous Blood Culture - Preliminary NO GROWTH OBTAINED AFTER 24 HOURS, INCUBATION TO CONTINUE FOR 4 DAYS. 11/08/18 04:05 Urine - Urine Clean Catch Urine Culture - Final Escherichia Coli 11/08/18 18:34 Urine For Antigen Detection Legionella Antigen - Final 11/08/18 18:34 Urine For Antigen Detection Streptococcus pneumoniae Antigen (M - Final -ID on board -On IV abx -afebrile Code(s): N39.0 - URINARY TRACT INFECTION, SITE NOT SPECIFIED Qualifiers: Urinary tract infection type: site unspecified Hematuria presence: without hematuria Qualified Code(s): N39.0 - Urinary tract infection, site not specified (4) Sepsis Assessment/Plan: -afebrile now -On IV abx -ID on board Code(s): A41.9 - SEPSIS, UNSPECIFIED ORGANISM (5) Metabolic encephalopathy Assessment/Plan: -2/2 to UTI Code(s): G93.41 - METABOLIC ENCEPHALOPATHY Assessment/Plan see problem list Physical therapy
--- NOTE | 2018-11-12 16:28 | PN ---
Progress Note, Physician History of Present Illness: Blood c/s peptostreptococcus x2 bottles Repeat BC (-) Awake, alert OOB in chair No complaints No c/o chest pain / dyspnea/ cough Denies dysuria/ hematuria - Current Medication List Current Medications: Active Medications Acetaminophen (Tylenol -) 650 mg PO Q4H PRN PRN Reason: FEVER Albuterol/Ipratropium (Duoneb -) 1 amp NEB Q6H PRN PRN Reason: SHORTNESS OF BREATH Donepezil HCl (Aricept -) 10 mg PO DAILY [facility] Last Admin: 11/12/18 09:29 Dose: 10 mg Ferrous Sulfate (Feosol -) 325 mg PO DAILY [facility] Last Admin: 11/12/18 09:29 Dose: 325 mg Furosemide (Lasix -) 20 mg PO DAILY [facility] Last Admin: 11/12/18 09:29 Dose: 20 mg Heparin Sodium (Porcine) (Heparin -) 5,000 unit SQ BID [facility] Last Admin: 11/12/18 09:29 Dose: 5,000 unit Hydralazine HCl (Apresoline -) 25 mg PO TID [facility] Last Admin: 11/12/18 13:57 Dose: 25 mg Ceftriaxone Sodium 2 gm/ (Dextrose) 100 mls @ 100 mls/hr IVPB DAILY [facility]; Protocol Last Admin: 11/12/18 09:28 Dose: 100 mls/hr Lactobacillus Acidophilus (Bacid -) 1 tab PO TID [facility] Last Admin: 11/12/18 13:57 Dose: 1 tab Metoprolol Succinate (Toprol Xl -) 50 mg PO DAILY [facility] Last Admin: 11/12/18 09:29 Dose: 50 mg Mirtazapine (Remeron -) 7.5 mg PO HS [facility] Last Admin: 11/11/18 22:55 Dose: 7.5 mg [id number] Ethyl Esters (Lovaza -) 2 gm PO BID [facility] Last Admin: 11/12/18 09:28 Dose: 2 gm Potassium Chloride (K-Dur -) 20 meq PO DAILY [facility] Last Admin: 11/12/18 09:29 Dose: 20 meq - Objective Vital Signs: Vital Signs Temperature 98.7 F 11/12/18 13:40 Pulse Rate 83 11/12/18 13:40 Respiratory Rate 20 11/12/18 13:40 Blood Pressure 134/87 11/12/18 13:40 O2 Sat by Pulse Oximetry (%) 92 L 11/12/18 09:00 Constitutional: Yes: No Distress Cardiovascular: Yes: Regular Rate and Rhythm, S1, S2 Respiratory: Yes: CTA Bilaterally Gastrointestinal: Yes: Normal Bowel Sounds, Soft, Abdomen, Obese. No: Tenderness Labs: CBC, BMP 11/11/18 06:30 11/11/18 06:30 INR, PTT INR 1.03 (0.83-1.09) 11/08/18 02:03 Assessment/Plan RLL HCAP clinically improved COPD exacerbation UTI E coli Repeat BC no growth Substitute Augmentin 500mg po bid x 7d
[2018-11-12] MEDS: MIRTAZAPINE 15 MG TABLET (FP) PO SCH (21:31)
[2018-11-13] MEDS: hydrALAZINE HCL 25 MG TABLET (FP) PO SCH ×2 (06:07→15:58)
[2018-11-13] MEDS: LACTOBACILLUS ACIDOPHILUS 1 TABLET PO SCH ×2 (06:07→15:58)
[2018-11-13] MEDS ORDERED: DEXTROSE 5%-WATER 100 ML IVPB ONE (11:48)
[2018-11-13] MEDS: HEPARIN NA (PORCINE) 5,000 UNITS/ML 1ML VIAL SQ SCH (11:52)
[2018-11-13] MEDS: CEFTRIAXONE 2 GM in DEXTROSE 5%-WATER 100 ML IVPB SCH (11:52)
[2018-11-13] MEDS: OMEGA-3 ACID ETHYL ESTERS (FATTY-ACIDS) 1 GM CAPSULE (FP) PO SCH (11:52)
[2018-11-13] MEDS: POTASSIUM CHLORIDE TABS 20 MEQ TABLET.ER (FP) PO SCH (11:55)
[2018-11-13] MEDS: FERROUS SO4 325 MG TABLET (FP) PO SCH (11:56)
[2018-11-13] MEDS: DONEPEZIL HCL 10 MG TABLET (FP) PO SCH (11:57)
[2018-11-13] MEDS: FUROSEMIDE 20 MG TABLET (FP) PO SCH (11:57)
--- NOTE | 2018-11-13 13:26 | DS ---
Physical Examination Vital Signs: Vital Signs Temperature 98.1 F 11/13/18 06:00 Pulse Rate 72 11/13/18 06:00 Respiratory Rate 18 11/13/18 06:00 Blood Pressure 141/71 11/13/18 06:00 O2 Sat by Pulse Oximetry (%) 96 11/12/18 21:00 Findings/Remarks: This is a 88 y/o woman from [facility] with a PMHx of Alzheimer's, HTN, HLD, COPD , GERD, MDD, Vitamin B-12 deficiency Anemia, C- Diff. Who presents to the ED for R- rib/chest pain, increase pain on inspiration. Patient reports having increased pain to her R- ribs and chest on inspiration. Patent denies recent fall or head trauma. Patient denies fever, chills, dizziness, AP, N/V/D, constipation, dysuria.Patient does have a history of Alzheimer's she is unable to provide a detailed HPI Constitutional: Yes: Well Nourished, No Distress, Calm Cardiovascular: Yes: Regular Rate and Rhythm Respiratory: Yes: Regular Gastrointestinal: Yes: Normal Bowel Sounds, Soft Musculoskeletal: Yes: Muscle Weakness Extremities: Yes: WNL Edema: No Peripheral Pulses WNL: Yes Neurological: Yes: Alert, Pre-Existing Deficit Psychiatric: Yes: Alert Labs: CBC, BMP 11/11/18 06:30 11/11/18 06:30 Discharge Summary Reason For Visit: URINARY TRACT INFECTION Current Active Problems Alzheimer's dementia (Acute) COPD (chronic obstructive pulmonary disease) (Acute) Depression (Acute) GERD (gastroesophageal reflux disease) (Acute) HTN (hypertension) (Acute) Metabolic encephalopathy (Acute) Pneumonia (Acute) Rib pain on right side (Acute) UTI (urinary tract infection) (Acute) Hospital Course: Laboratory Last Values WBC 5.1 K/mm3 (4.0-10.0) 11/11/18 06:30 RBC 3.96 M/mm3 (3.60-5.2) 11/11/18 06:30 Hgb 12.7 GM/dL (10.7-15.3) 11/11/18 06:30 Hct 38.2 % (32.4-45.2) 11/11/18 06:30 MCV 96.5 fl (80-96) H 11/11/18 06:30 MCH 32.1 pg (25.7-33.7) 11/11/18 06:30 MCHC 33.2 g/dl (32.0-36.0) 11/11/18 06:30 RDW 12.9 % (11.6-15.6) 11/11/18 06:30 Plt Count 209 K/MM3 (134-434) 11/11/18 06:30 MPV 7.3 fl (7.5-11.1) L D 11/11/18 06:30 Absolute Neuts (auto) 3.8 K/mm3 (1.5-8.0) 11/11/18 06:30 Neutrophils % 74.5 % (42.8-82.8) 11/11/18 06:30 Neutrophils % (Manual) 65.3 % (42.8-82.8) 11/09/18 06:30 Band Neutrophils % 0.0 % 11/09/18 06:30 Lymphocytes % 10.1 % (8-40) D 11/11/18 06:30 Lymphocytes % (Manual) 10.9 % (8-40) 11/09/18 06:30 Monocytes % 10.8 % (3.8-10.2) H 11/11/18 06:30 Monocytes % (Manual) 12 % (3.8-10.2) H 11/09/18 06:30 Eosinophils % 3.9 % (0-4.5) 11/11/18 06:30 Eosinophils % (Manual) 3.0 % (0-4.5) 11/09/18 06:30 Basophils % 0.7 % (0-2.0) 11/11/18 06:30 Basophils % (Manual) 0.0 % (0-2.0) 11/09/18 06:30 Myelocytes % (Man) 0 % (0-2) 11/09/18 06:30 Promyelocytes % (Man) 0 % (0-2) 11/09/18 06:30 Blast Cells % (Manual) 0 % (0-0) 11/09/18 06:30 Nucleated RBC % 0 % (0-0) 11/11/18 06:30 Metamyelocytes 0 % (0-2) 11/09/18 06:30 Hypochromia 0 11/09/18 06:30 Platelet Estimate Normal 11/09/18 06:30 Platelet Comment Present 11/09/18 06:30 Polychromasia 1+ 11/09/18 06:30 Poikilocytosis 1+ 11/09/18 06:30 Anisocytosis 2+ 11/09/18 06:30 Microcytosis 2+ 11/09/18 06:30 Macrocytosis 0 11/09/18 06:30 Spherocytes 1+ 11/09/18 06:30 PT with INR 12.20 SEC (9.7-13.0) 11/08/18 02:03 INR 1.03 (0.83-1.09) 11/08/18 02:03 PTT (Actin FS) 33.6 SECONDS (25.2-36.5) 11/08/18 02:03 Sodium 142 mmol/L (136-145) 11/11/18 06:30 Potassium 4.0 mmol/L (3.5-5.1) 11/11/18 06:30 Chloride 108 mmol/L (98-107) H 11/11/18 06:30 Carbon Dioxide 24 mmol/L (21-32) 11/11/18 06:30 Anion Gap 10 MMOL/L (8-16) 11/11/18 06:30 BUN 13 mg/dL (7-18) 11/11/18 06:30 Creatinine 0.7 mg/dL (0.55-1.3) 11/11/18 06:30 Creat Clearance w eGFR > 60 (>60) 11/11/18 06:30 POC Glucometer 148 UNITS (80-120) 11/10/18 23:26 Random Glucose 92 mg/dL (74-106) 11/11/18 06:30 Lactic Acid 1.7 mmol/L (0.4-2.0) 11/08/18 02:03 Calcium 8.3 mg/dL (8.5-10.1) L 11/11/18 06:30 Total Bilirubin 0.4 mg/dL (0.2-1) 11/11/18 06:30 AST 11 U/L (15-37) L 11/11/18 06:30 ALT 14 U/L (13-61) 11/11/18 06:30 Alkaline Phosphatase 78 U/L (45-117) 11/11/18 06:30 Troponin I < 0.02 ng/ml (0.00-0.05) 11/08/18 02:03 Total Protein 6.2 g/dl (6.4-8.2) L 11/11/18 06:30 Albumin 3.0 g/dl (3.4-5.0) L 11/11/18 06:30 Urine Color Yellow 11/08/18 04:05 Urine Appearance Cloudy 11/08/18 04:05 Urine pH 5.0 (5.0-8.0) D 11/08/18 04:05 Ur Specific [place] 1.015 (1.010-1.035) 11/08/18 04:05 Urine Protein Negative (NEGATIVE) 11/08/18 04:05 Urine Glucose (UA) Negative (NEGATIVE) 11/08/18 04:05 Urine Ketones Negative (NEGATIVE) 11/08/18 04:05 Urine Blood Negative (NEGATIVE) 11/08/18 04:05 Urine Nitrite Positive (NEGATIVE) 11/08/18 04:05 Urine Bilirubin Negative (<2.0 mg/dL) 11/08/18 04:05 Urine Urobilinogen Negative mg/dL (0.2-1.0) 11/08/18 04:05 Ur Leukocyte Esterase 1+ (NEGATIVE) H 11/08/18 04:05 Urine WBC (Auto) 37 /hpf (3-5) 11/08/18 04:05 Urine RBC (Auto) 2 /hpf (0-3) 11/08/18 04:05 Ur Epithelial Cells Rare /HPF (FEW) 11/08/18 04:05 Urine Bacteria Rare /hpf (NONE SEEN) 11/08/18 04:05 Urine Mucus Rare 11/08/18 04:05 Influenza A (Rapid) Negative 11/08/18 06:05 Influenza B (Rapid) Negative 11/08/18 06:05 Microbiology 11/08/18 01:52 Blood - Peripheral Venous Blood Culture - Final Peptococcus Asaccharolyticus 11/10/18 09:15 Blood - Peripheral Venous Blood Culture - Preliminary NO GROWTH OBTAINED AFTER 72 HOURS, INCUBATION TO CONTINUE FOR 2 DAYS. 11/10/18 09:15 Blood - Peripheral Venous Blood Culture - Preliminary NO GROWTH OBTAINED AFTER 72 HOURS, INCUBATION TO CONTINUE FOR 2 DAYS. 11/08/18 01:52 Blood - Peripheral Venous Blood Culture - Final Peptococcus Asaccharolyticus 11/08/18 04:05 Urine - Urine Clean Catch Urine Culture - Final Escherichia Coli 11/08/18 18:34 Urine For Antigen Detection Legionella Antigen - Final 11/08/18 18:34 Urine For Antigen Detection Streptococcus pneumoniae Antigen (M - Final Condition: Stable - Instructions Referrals: Alida Gibbons MD [Primary Care Provider] - Disposition: [facility] - Home Medications Comprehensive Discharge Medication List: Ambulatory Orders Cyanocobalamin [Vitamin B12 -] 1,000 mcg PO DAILY 06/11/17 Selma-3S/Dha/Epa/Fish Oil [[place]ma-3 Fish Oil 1,000 mg Sfgl] 1 each PO BID hydrALAZINE HCL [Apresoline -] 25 mg PO BID 06/11/17 Acetaminophen [Tylenol .Regular Strength -] 650 mg PO Q4H PRN #0 tablet Donepezil HCl [Aricept -] 10 mg PO DAILY 06/18/17 Metoprolol Succinate [Toprol XL -] 50 mg PO DAILY 06/18/17 Potassium Chloride [K-Dur -] 20 meq PO DAILY 06/18/17 Aa/Hydrolyzed Collagen, Whey [Lps Neutral Flavor Liquid] 30 ml PO DAILY Ferrous Sulfate 325 mg PO DAILY 05/30/18 Furosemide [Lasix] 20 mg PO DAILY 05/30/18 Lactobacillus Acidophilus [Bacid -] 1 each PO TID 05/30/18 Mirtazapine [Remeron -] 15 mg PO HS 05/30/18 Ferrous Sulfate [Feosol] 325 mg PO BIDWM ud 06/01/18 Heparin - 5,000 unit SQ BID vial 06/01/18 Albuterol 2.5/Ipratropium 0.5 [Duoneb -] 1 amp NEB Q6H PRN amp 11/13/18 Amoxicillin/Potassium Clav [Augmentin 500-125 Tablet] 1 each PO BID #14 tablet 11/13/18
[2018-11-13 14:39] VITALS: BP 136/84; PULSE 76; TEMP 99.3
== END 2018-11-13 16:44 | DRG 871 ==
LOC: JER 00:44 → JERBED 05:11 → J7W 08:28
PROVIDERS: ADMIT Internal Medicine; ATTEND Family Medicine
DX: A41.89 Other specified sepsis (principal); J18.9 Pneumonia, unspecified organism; G93.41 Metabolic encephalopathy; J44.1 Chronic obstructive pulmonary disease with (acute) exacerbation; N39.0 Urinary tract infection, site not specified; I10 Essential (primary) hypertension; R41.82 Altered mental status, unspecified; E78.5 Hyperlipidemia, unspecified; E53.8 Deficiency of other specified B group vitamins; B96.20 Unspecified Escherichia coli [E. coli] as the cause of diseases classified elsewhere; R09.02 Hypoxemia; G30.9 Alzheimer's disease, unspecified; F02.80 Dementia in other diseases classified elsewhere, unspecified severity, without behavioral disturbance, psychotic disturbance, mood disturbance, and anxiety; K21.9 Gastro-esophageal reflux disease without esophagitis; D64.9 Anemia, unspecified; R07.81 Pleurodynia; E66.9 Obesity, unspecified; Z68.26 Body mass index [BMI] 26.0-26.9, adult; Z66 Do not resuscitate
CPT/HCPCS: 36415; 71045-TC-FY; 71101-TC-RT-FY; 80048; 80053; 81003; 81015; 82962; 83605; 84484; 85025; 85610; 85730; 87040; 87076; 87086; 87186; 87804; 87899; 93005; 93010; 94010; 97116-GP; 97161-GP; 99284-25; J0131; J1644